=== PATIENT | female | born 1950 | race Two or more races ===

== ENCOUNTER 2019-08-02 18:16 | Emergency (ER) | payer OTHER, MEDICAID ==
[~2019-08-02] VITALS: Ht 152.4 cm; Wt 108.9 kg
[2019-08-02 19:15] LABS: Basophils # (auto) 0 uL; Basophils % (auto) 0.2 % (0.0-2.0); Eosinophils # (auto) 0 uL; Hematocrit 44.7 % (36.0-46.0); Hemoglobin 14.3 g/dL (12.2-16.2); Lymphocytes # (auto) 1.5 uL; Mean Corpuscular Hemoglobin 32.3 pg (28.0-32.0); Monocytes # (auto) 0.4 uL; Monocytes % (auto) 6.4 % (0.0-12.0); Neutrophils # (auto) 4.5 uL; Neutrophils % (auto) 70.4 % (37.0-80.0); Nucleated Red Blood Cells % 0.1 %; Platelet Count (auto) 155 10^3/uL (140-450); Red Blood Cells 4.42 10^6/uL (4.0-5.20); White Blood Cell 6.4 10^3/uL (4.4-10.8)
[2019-08-02 19:44] LABS: Albumin 3.9 g/dL (3.4-5.0); Anion Gap 6 (5-15); Blood Urea Nitrogen 13 mg/dL (7-18); Calcium 9.2 mg/dL (8.5-10.1); Carbon Dioxide 23 mmol/L (21-32); Chloride 109 mmol/L (98-107); Glucose 79 mg/dL (74-106); Potassium 4.4 mmol/L (3.5-5.1); Sodium 138 mmol/L (136-145)
[2019-08-02 19:48] LABS: Alanine Aminotransferase 18 U/L (13-56); Alkaline Phosphatase 122 U/L (45-117); Aspartate Aminotransferase 19 U/L (15-37); BUN/Creatinine Ratio 11.6; Bilirubin, Total 0.4 mg/dL (0.2-1.0); GFR African American 62 mL/min; GFR Non-African American 51 mL/min; Total Protein 8.1 g/dL (6.4-8.2)
[2019-08-02 20:41] LABS: INR 0.98 (0.9-1.15); Partial Thromboplastin Time 28.7 sec (23.64-32.05)
[2019-08-02 21:08] VITALS: BP 113/69
== END 2019-08-02 22:11 | disposition home or self-care (01) ==
LOC: EDBD 18:16 → ER 18:16
DX: S16.1XXA Strain of muscle, fascia and tendon at neck level, initial encounter (principal); S00.03XA Contusion of scalp, initial encounter; S80.01XA Contusion of right knee, initial encounter; I10 Essential (primary) hypertension; E07.9 Disorder of thyroid, unspecified; W18.39XA Other fall on same level, initial encounter; Y93.89 Activity, other specified; Y99.8 Other external cause status; Y92.89 Other specified places as the place of occurrence of the external cause
CPT/HCPCS: 36415; 70450; 71045; 72125; 73562; 80053; 84484; 85025; 85610; 85730; 93005

== ENCOUNTER 2021-09-07 19:59 | Inpatient (IN) | payer OTHER, MEDICAID ==
[~2021-09-07] VITALS: Ht 162.6 cm; Wt 122.8 kg
[2021-09-07] MEDS ORDERED: DexAMETHasone SOD PHOS 10MG/1ML VIAL INJ IV ONE (20:30)
[2021-09-07 21:19] LABS: Basophils # (auto) 0 10 ^3/uL (0-0.2); Basophils % (auto) 0.2 % (0.0-2.0); Eosinophils # (auto) 0 10 ^3/uL (0-0.8); Hematocrit 41.1 % (36.0-46.0); Hemoglobin 13.4 g/dL (12.2-16.2); Lymphocytes # (auto) 0.6 10 ^3/uL (0.4-5.4); Lymphocytes % (auto) 12.9 % (10.0-50.0); Mean Corpuscular Hemoglobin 31.5 pg (28.0-32.0); Mean Corpuscular Hgb Conc. 32.7 g/dL (32.0-36.0); Mean Corpuscular Volume 96.3 fL (80.0-100.0); Monocytes # (auto) 0.5 10 ^3/uL (0-1.3); Monocytes % (auto) 9.4 % (0.0-12.0); Neutrophils # (auto) 3.8 10 ^3/uL (1.6-8.6); Neutrophils % (auto) 77.5 % (37.0-80.0); Nucleated Red Blood Cells % 0.1 %; Red Blood Cells 4.27 10^6/uL (4.0-5.20); Red Cell Distribution Width 14.5 % (11.8-14.3); White Blood Cell 4.9 10^3/uL (4.4-10.8)
[2021-09-07 21:39] LABS: Potassium 3.5 mmol/L (3.5-5.1)
[2021-09-07 21:51] LABS: BUN/Creatinine Ratio 15.8; Bilirubin, Total 0.4 mg/dL (0.2-1.0); Calcium 7.8 mg/dL (8.5-10.1); Magnesium 2.9 mg/dL (1.6-2.6); Total Protein 7.1 g/dL (6.4-8.2)
[2021-09-07 21:54] LABS: INR 1.08 (0.9-1.15); Partial Thromboplastin Time 26.9 sec (23.6-33.0)
[2021-09-07] MEDS ORDERED: MORPHINE SULFATE INJECTION 2 MG/ML SYRG IV PRN (23:30)
[2021-09-07] MEDS ORDERED: cefTRIAXone 1GM/50ML D5W 50 ML IV ONE (23:30)
[2021-09-07] MEDS ORDERED: TEMAZEPAM 15 MG CAP PO PRN (23:30)
[2021-09-07] MEDS ORDERED: NITROGLYCERIN 0.4 MG SL TAB SL PRN (23:30)
[2021-09-07] MEDS ORDERED: ACETAMINOPHEN 500 MG TAB PO PRN (23:30)
[2021-09-07] MEDS: AZITHROMYCIN 500MG/ 250ML 250 ML IV SCH (23:48)
[2021-09-08 00:38] LABS: Urine Bacteria FEW /hpf (None Seen); Urine Blood TRACE /uL (Negative); Urine Mucus FEW (None Seen); Urine Specific Gravity 1.049 (1.001-1.035); Urine WBC 11 /hpf (0 - 5)
[2021-09-08 02:00] VITALS: BP 130/70
[2021-09-08] MEDS ORDERED: GABA300C10 PO (03:24)
[2021-09-08] MEDS ORDERED: TOPI100T68 PO (03:26)
[2021-09-08] MEDS ORDERED: VENL75CA3 PO (03:26)
[2021-09-08] MEDS ORDERED: LORA-35 PO (03:30)
[2021-09-08] MEDS ORDERED: PROP40TA59 PO (03:32)
[2021-09-08] MEDS ORDERED: SIMV-8 PO (03:33)
[2021-09-08] MEDS ORDERED: HYDR200T36 PO (03:33)
[2021-09-08] MEDS ORDERED: LEVO175T66 PO (03:34)
[2021-09-08 05:00] VITALS: BP 122/55
[2021-09-08] MEDS: LEVOTHYROXINE SODIUM 50 MCG TAB PO SCH (06:41)
[2021-09-08 09:00] VITALS: BP 101/61
[2021-09-08 09:43] LABS: Basophils # (auto) 0 10 ^3/uL (0-0.2); Basophils % (auto) 0.2 % (0.0-2.0); Eosinophils # (auto) 0 10 ^3/uL (0-0.8); Hematocrit 39.8 % (36.0-46.0); Hemoglobin 13.2 g/dL (12.2-16.2); Lymphocytes # (auto) 0.5 10 ^3/uL (0.4-5.4); Lymphocytes % (auto) 17.1 % (10.0-50.0); Mean Corpuscular Hemoglobin 32.2 pg (28.0-32.0); Mean Corpuscular Hgb Conc. 33.1 g/dL (32.0-36.0); Mean Corpuscular Volume 97.4 fL (80.0-100.0); Monocytes # (auto) 0.2 10 ^3/uL (0-1.3); Monocytes % (auto) 6.3 % (0.0-12.0); Neutrophils # (auto) 2.3 10 ^3/uL (1.6-8.6); Neutrophils % (auto) 76.4 % (37.0-80.0); Nucleated Red Blood Cells % 0.1 %; Red Blood Cells 4.08 10^6/uL (4.0-5.20); Red Cell Distribution Width 14.6 % (11.8-14.3)
[2021-09-08 09:52] LABS: Calcium 7.7 mg/dL (8.5-10.1); Potassium 3.9 mmol/L (3.5-5.1)
[2021-09-08 09:57] LABS: BUN/Creatinine Ratio 20.5; Bilirubin, Total 0.3 mg/dL (0.2-1.0); Total Protein 6.5 g/dL (6.4-8.2)
[2021-09-08] MEDS ORDERED: DexAMETHasone SOD PHOS 10MG/1ML VIAL INJ IV SCH (10:00)
[2021-09-08] MEDS ORDERED: PANTOPRAZOLE 40 MG TAB PO SCH (10:00)
[2021-09-08] MEDS: VENLAFAXINE HCL 37.5MG TABLET PO SCH (10:31)
[2021-09-08] MEDS: AZITHROMYCIN 500MG/ 250ML 250 ML IV SCH (10:31)
[2021-09-08] MEDS: ZINC SULFATE 220mg CAP or TAB PO SCH (10:31)
[2021-09-08] MEDS: CHOLECALCIFEROL (VITD3) 2,000 UNIT CAP/TAB PO SCH (10:32)
[2021-09-08] MEDS: ASCORBIC ACID 1,000 MG TAB PO SCH (10:32)
[2021-09-08] MEDS: ENOXAPARIN SOD 40 MG/0.4 ML SYRINGE SC SCH ×2 (10:32→22:00)
[2021-09-08] MEDS ORDERED: FAMOTIDINE (10MG/ML) 2ML VL IV ONE (10:45)
[2021-09-08] MEDS: CALCIUM W/VIT D (600MG/400IU) TAB PO SCH ×2 (11:44→17:56)
[2021-09-08 13:00] VITALS: BP 116/63
[2021-09-08] MEDS ORDERED: IPRATROPIUM BROM 0.5 MG/2.5ML INH SOL NEB SCH (14:00)
[2021-09-08 17:00] VITALS: BP 103/58
[2021-09-08] MEDS: FUROSEMIDE 20 MG/2 ML VIAL IV SCH (17:57)
[2021-09-08] MEDS: POTASSIUM CHL 20 Meq TABLET PO SCH (21:59)
[2021-09-08] MEDS: FAMOTIDINE (10MG/ML) 2ML VL IV SCH (21:59)
[2021-09-08] MEDS: ATORVASTATIN 20 MG TAB PO SCH (21:59)
[2021-09-08 22:00] VITALS: BP 120/61
[2021-09-09] MEDS: ALBUTEROL SULF HFA 90MCG INH 200DOSE IN PRN ×3 (00:21→06:25)
[2021-09-09] MEDS: ONDANSETRON HCL 4 MG/2 ML VIAL IV PRN (01:03)
[2021-09-09 05:00] VITALS: BP 131/80
[2021-09-09] MEDS: LEVOTHYROXINE SODIUM 50 MCG TAB PO SCH (05:56)
[2021-09-09] MEDS: FUROSEMIDE 20 MG/2 ML VIAL IV SCH (05:56)
[2021-09-09 08:47] VITALS: BP 102/60
[2021-09-09 09:20] LABS: INR 1.04 (0.9-1.15); Partial Thromboplastin Time 31.6 sec (23.6-33.0)
[2021-09-09 09:28] LABS: Basophils # (auto) 0 10 ^3/uL (0-0.2); Basophils % (auto) 0.2 % (0.0-2.0); Eosinophils # (auto) 0 10 ^3/uL (0-0.8); Eosinophils % (auto) 0.1 % (0.0-7.0); Hematocrit 42.7 % (36.0-46.0); Hemoglobin 14.3 g/dL (12.2-16.2); Lymphocytes # (auto) 0.8 10 ^3/uL (0.4-5.4); Lymphocytes % (auto) 10.7 % (10.0-50.0); Mean Corpuscular Hemoglobin 31.9 pg (28.0-32.0); Mean Corpuscular Hgb Conc. 33.6 g/dL (32.0-36.0); Mean Corpuscular Volume 95.1 fL (80.0-100.0); Monocytes # (auto) 0.4 10 ^3/uL (0-1.3); Monocytes % (auto) 4.9 % (0.0-12.0); Neutrophils # (auto) 6.3 10 ^3/uL (1.6-8.6); Neutrophils % (auto) 84.1 % (37.0-80.0); Nucleated Red Blood Cells % 0.3 %; Red Blood Cells 4.49 10^6/uL (4.0-5.20); Red Cell Distribution Width 14.3 % (11.8-14.3); White Blood Cell 7.4 10^3/uL (4.4-10.8)
[2021-09-09 09:30] LABS: Potassium 3.2 mmol/L (3.5-5.1)
[2021-09-09] MEDS ORDERED: ALBUTEROL SULF 2.5 MG/0.5ML(0.5%) NEB SOLN NEB ONE (09:30)
[2021-09-09] MEDS ORDERED: ENOXAPARIN SOD 120 MG/0.8 ML SYRINGE SC ONE (09:30)
[2021-09-09] MEDS ORDERED: methylPREDNISolone SOD SUCC 125 MG/2 ML VL IV ONE (09:30)
[2021-09-09] MEDS ORDERED: MEROPENEM 2 GM in SODIUM CHL 0.9% 250 ML IV ONE (09:30)
[2021-09-09] MEDS ORDERED: IPRATROPIUM BROM 0.5 MG/2.5ML INH SOL NEB ONE (09:30)
[2021-09-09] MEDS ORDERED: VANCOMYCIN PER PHARMACY 0 MG IV SCH (09:30)
[2021-09-09] MEDS ORDERED: BUDESONIDE (INHALATION) 0.5 MG/2 ML NEB NEB ONE (09:30)
[2021-09-09 09:44] LABS: Albumin 3.2 g/dL (3.4-5.0); BUN/Creatinine Ratio 19.3; Bilirubin, Total 0.4 mg/dL (0.2-1.0); Calcium 8.2 mg/dL (8.5-10.1); Magnesium 2.9 mg/dL (1.6-2.6); Total Protein 6.8 g/dL (6.4-8.2)
[2021-09-09] MEDS ORDERED: LEVOTHYROXINE SODIUM 100 MCG/5 ML INJ IV ONE (09:45)
[2021-09-09] MEDS ORDERED: FAMOTIDINE (10MG/ML) 2ML VL IV ONE (09:45)
[2021-09-09] MEDS ORDERED: IOHEXOL 350 MG/ML 100ML IJ ONE (09:50)
[2021-09-09] MEDS: FAMOTIDINE (10MG/ML) 2ML VL IV SCH ×2 (10:00→21:52)
[2021-09-09] MEDS ORDERED: IPRATROPIUM BROM 0.5 MG/2.5ML INH SOL NEB SCH (10:00)
[2021-09-09] MEDS ORDERED: ALBUMIN 25% 100 ML IV ONE (10:00)
[2021-09-09] MEDS ORDERED: VANCOMYCIN 1GM/250ML 250 ML IV ONE (10:00)
[2021-09-09] MEDS ORDERED: FAMOTIDINE (10MG/ML) 2ML VL IV SCH (10:00)
[2021-09-09] MEDS: VENLAFAXINE HCL 37.5MG TABLET PO SCH (10:25)
[2021-09-09] MEDS: ZINC SULFATE 220mg CAP or TAB PO SCH (10:25)
[2021-09-09] MEDS: CALCIUM W/VIT D (600MG/400IU) TAB PO SCH (10:25)
[2021-09-09] MEDS: ASCORBIC ACID 1,000 MG TAB PO SCH (10:25)
[2021-09-09] MEDS: POTASSIUM CHL 20 Meq TABLET PO SCH (10:25)
[2021-09-09] MEDS: CHOLECALCIFEROL (VITD3) 2,000 UNIT CAP/TAB PO SCH (10:26)
[2021-09-09] MEDS: ALBUTEROL SULF 2.5 MG/0.5ML(0.5%) NEB SOLN NEB SCH ×3 (10:35→19:47)
[2021-09-09] MEDS: BUDESONIDE (INHALATION) 0.5 MG/2 ML NEB NEB SCH ×2 (10:35→19:47)
[2021-09-09] MEDS ORDERED: REMDESIVIR PER PHARMACY 0 ML IV SCH (11:30)
[2021-09-09 12:46] VITALS: BP 129/74
[2021-09-09] MEDS ORDERED: MEROPENEM 1GM IVPB 100 ML IV SCH (14:00)
[2021-09-09] MEDS ORDERED: methylPREDNISolone SOD SUCC 40 MG/ML VL IV SCH (14:00)
[2021-09-09] MEDS ORDERED: REMDESIVIR 200 MG in NS 210ml LOADING DOSE ADULT IV ONE (15:00)
[2021-09-09 16:50] VITALS: BP 118/71
[2021-09-09] MEDS ORDERED: VANCOMYCIN 1GM/250ML 250 ML IV SCH (18:00)
[2021-09-09 20:00] VITALS: BP 119/70
[2021-09-09 20:59] VITALS: BP 119/70
[2021-09-09] MEDS: ATORVASTATIN 20 MG TAB PO SCH (21:52)
[2021-09-09] MEDS ORDERED: ENOXAPARIN SOD 120 MG/0.8 ML SYRINGE SC SCH (22:00)
[2021-09-10 05:00] VITALS: BP 106/59
[2021-09-10 05:27] VITALS: BP 111/72
[2021-09-10] MEDS: LEVOTHYROXINE SODIUM 100 MCG TAB PO SCH (06:21)
[2021-09-10] MEDS ORDERED: LEVOTHYROXINE SODIUM 100 MCG TAB PO SCH (07:00)
[2021-09-10] MEDS ORDERED: LEVOTHYROXINE SODIUM 50 MCG TAB PO SCH (07:00)
[2021-09-10 07:17] LABS: Potassium 3.6 mmol/L (3.5-5.1)
[2021-09-10 07:24] LABS: Albumin 3.2 g/dL (3.4-5.0); BUN/Creatinine Ratio 23.5; Bilirubin, Total 0.3 mg/dL (0.2-1.0); Calcium 8.5 mg/dL (8.5-10.1); Total Protein 6.7 g/dL (6.4-8.2)
[2021-09-10] MEDS: ALBUTEROL SULF HFA 90MCG INH 200DOSE IN PRN ×2 (08:34→19:12)
[2021-09-10 09:00] VITALS: BP 111/80
[2021-09-10] MEDS: cefTRIAXone 1GM/50ML D5W 50 ML IV SCH (09:16)
[2021-09-10] MEDS: DexAMETHasone SOD PHOS 10MG/1ML VIAL INJ IV SCH (09:17)
[2021-09-10] MEDS: FAMOTIDINE (10MG/ML) 2ML VL IV SCH (09:18)
[2021-09-10] MEDS: ZINC SULFATE 220mg CAP or TAB PO SCH (09:18)
[2021-09-10] MEDS: VENLAFAXINE HCL 37.5MG TABLET PO SCH (09:19)
[2021-09-10] MEDS: ASCORBIC ACID 1,000 MG TAB PO SCH (09:20)
[2021-09-10] MEDS: CALCIUM W/VIT D (600MG/400IU) TAB PO SCH (09:20)
[2021-09-10] MEDS: AZITHROMYCIN 250 MG TAB PO SCH (09:21)
[2021-09-10] MEDS: CHOLECALCIFEROL (VITD3) 2,000 UNIT CAP/TAB PO SCH (09:21)
[2021-09-10] MEDS: ACETAMINOPHEN 325 MG TAB PO PRN (09:22)
[2021-09-10] MEDS ORDERED: BUDESONIDE (INHALATION) 180 MCG IH IN SCH (10:00)
[2021-09-10] MEDS: BUDESONIDE (INHALATION) 180 MCG IH IN SCH ×2 (10:54→19:12)
[2021-09-10 13:00] VITALS: BP 117/65
[2021-09-10] MEDS: REMDESIVIR 100mg 100 MG in SODIUM CHL 0.9% 230 ML IV SCH (16:14)
[2021-09-10 17:00] VITALS: BP 109/66
[2021-09-10] MEDS: ATORVASTATIN 20 MG TAB PO SCH (20:36)
[2021-09-10 21:10] VITALS: BP 112/67
[2021-09-11 04:50] VITALS: BP 112/67
[2021-09-11 05:00] VITALS: BP 123/67
[2021-09-11] MEDS: LEVOTHYROXINE SODIUM 100 MCG TAB PO SCH (06:32)
[2021-09-11 07:38] LABS: Basophils # (auto) 0 10 ^3/uL (0-0.2); Basophils % (auto) 0.1 % (0.0-2.0); Eosinophils # (auto) 0 10 ^3/uL (0-0.8); Eosinophils % (auto) 0.1 % (0.0-7.0); Hemoglobin 13.7 g/dL (12.2-16.2); Lymphocytes # (auto) 0.8 10 ^3/uL (0.4-5.4); Lymphocytes % (auto) 18.3 % (10.0-50.0); Mean Corpuscular Hemoglobin 32.5 pg (28.0-32.0); Mean Corpuscular Hgb Conc. 34.4 g/dL (32.0-36.0); Mean Corpuscular Volume 94.6 fL (80.0-100.0); Monocytes # (auto) 0.3 10 ^3/uL (0-1.3); Monocytes % (auto) 7.7 % (0.0-12.0); Neutrophils # (auto) 3.1 10 ^3/uL (1.6-8.6); Neutrophils % (auto) 73.8 % (37.0-80.0); Nucleated Red Blood Cells % 0.3 %; Red Blood Cells 4.22 10^6/uL (4.0-5.20); Red Cell Distribution Width 14.6 % (11.8-14.3); White Blood Cell 4.2 10^3/uL (4.4-10.8)
[2021-09-11 07:50] LABS: Potassium 3.2 mmol/L (3.5-5.1)
[2021-09-11 08:01] LABS: BUN/Creatinine Ratio 31.5; Bilirubin, Total 0.3 mg/dL (0.2-1.0); Calcium 8.2 mg/dL (8.5-10.1); Total Protein 6.4 g/dL (6.4-8.2)
[2021-09-11 09:00] VITALS: BP 114/87
[2021-09-11] MEDS: DexAMETHasone SOD PHOS 10MG/1ML VIAL INJ IV SCH (09:24)
[2021-09-11] MEDS: cefTRIAXone 1GM/50ML D5W 50 ML IV SCH (09:24)
[2021-09-11] MEDS: ZINC SULFATE 220mg CAP or TAB PO SCH (09:25)
[2021-09-11] MEDS: VENLAFAXINE HCL 37.5MG TABLET PO SCH (09:26)
[2021-09-11] MEDS: CALCIUM W/VIT D (600MG/400IU) TAB PO SCH (09:27)
[2021-09-11] MEDS: FAMOTIDINE 20 MG TAB PO SCH (09:28)
[2021-09-11] MEDS: CHOLECALCIFEROL (VITD3) 2,000 UNIT CAP/TAB PO SCH (09:28)
[2021-09-11] MEDS: ASCORBIC ACID 1,000 MG TAB PO SCH (09:28)
[2021-09-11] MEDS: AZITHROMYCIN 250 MG TAB PO SCH (09:29)
[2021-09-11] MEDS: BUDESONIDE (INHALATION) 180 MCG IH IN SCH ×2 (10:00→21:42)
[2021-09-11 12:37] VITALS: BP 139/70
[2021-09-11] MEDS: REMDESIVIR 100mg 100 MG in SODIUM CHL 0.9% 230 ML IV SCH (15:45)
[2021-09-11] MEDS: ALBUTEROL SULF HFA 90MCG INH 200DOSE IN PRN ×2 (16:49→23:37)
[2021-09-11 16:52] VITALS: BP 115/67
[2021-09-11 22:00] VITALS: BP 114/69
[2021-09-11] MEDS: ATORVASTATIN 20 MG TAB PO SCH (22:54)
[2021-09-12] MEDS: LEVOTHYROXINE SODIUM 100 MCG TAB PO SCH (06:52)
[2021-09-12 08:06] LABS: Basophils # (auto) 0 10 ^3/uL (0-0.2); Basophils % (auto) 0.1 % (0.0-2.0); Eosinophils # (auto) 0 10 ^3/uL (0-0.8); Hematocrit 41.9 % (36.0-46.0); Hemoglobin 14.3 g/dL (12.2-16.2); Lymphocytes # (auto) 1.1 10 ^3/uL (0.4-5.4); Mean Corpuscular Hemoglobin 32.4 pg (28.0-32.0); Mean Corpuscular Hgb Conc. 34.2 g/dL (32.0-36.0); Mean Corpuscular Volume 94.7 fL (80.0-100.0); Monocytes # (auto) 0.4 10 ^3/uL (0-1.3); Monocytes % (auto) 8.6 % (0.0-12.0); Neutrophils # (auto) 2.9 10 ^3/uL (1.6-8.6); Neutrophils % (auto) 66.3 % (37.0-80.0); Nucleated Red Blood Cells % 0.2 %; Red Blood Cells 4.42 10^6/uL (4.0-5.20); Red Cell Distribution Width 14.8 % (11.8-14.3); White Blood Cell 4.4 10^3/uL (4.4-10.8)
[2021-09-12 08:21] LABS: Potassium 3.9 mmol/L (3.5-5.1)
[2021-09-12 08:28] LABS: Albumin 2.9 g/dL (3.4-5.0); BUN/Creatinine Ratio 35.4; Bilirubin, Total 0.3 mg/dL (0.2-1.0); Calcium 8.4 mg/dL (8.5-10.1); Total Protein 6.4 g/dL (6.4-8.2)
[2021-09-12 09:00] VITALS: BP 126/73
[2021-09-12] MEDS: ALBUTEROL SULF HFA 90MCG INH 200DOSE IN PRN ×2 (09:22→18:51)
[2021-09-12] MEDS: BUDESONIDE (INHALATION) 180 MCG IH IN SCH ×2 (09:22→18:51)
[2021-09-12] MEDS: CALCIUM W/VIT D (600MG/400IU) TAB PO SCH (10:36)
[2021-09-12] MEDS: cefTRIAXone 1GM/50ML D5W 50 ML IV SCH (10:36)
[2021-09-12] MEDS: DexAMETHasone SOD PHOS 10MG/1ML VIAL INJ IV SCH (10:36)
[2021-09-12] MEDS: VENLAFAXINE HCL 37.5MG TABLET PO SCH (10:36)
[2021-09-12] MEDS: ZINC SULFATE 220mg CAP or TAB PO SCH (10:36)
[2021-09-12] MEDS: AZITHROMYCIN 250 MG TAB PO SCH (10:37)
[2021-09-12] MEDS: FAMOTIDINE 20 MG TAB PO SCH (10:37)
[2021-09-12] MEDS: ASCORBIC ACID 1,000 MG TAB PO SCH (10:37)
[2021-09-12] MEDS: CHOLECALCIFEROL (VITD3) 2,000 UNIT CAP/TAB PO SCH (10:37)
[2021-09-12] MEDS ORDERED: POTASSIUM CHL 20 Meq TABLET PO ONE (11:00)
[2021-09-12] MEDS ORDERED: FUROSEMIDE 20 MG/2 ML VIAL IV ONE ×2 (11:00→18:45)
[2021-09-12 12:30] VITALS: BP 147/82
[2021-09-12 17:00] VITALS: BP 107/71
[2021-09-12] MEDS: REMDESIVIR 100mg 100 MG in SODIUM CHL 0.9% 230 ML IV SCH (18:58)
[2021-09-12] MEDS: ATORVASTATIN 20 MG TAB PO SCH (20:59)
[2021-09-12 22:18] VITALS: BP 116/69
[2021-09-13 05:11] VITALS: BP 124/75
[2021-09-13] MEDS: ALBUTEROL SULF HFA 90MCG INH 200DOSE IN PRN ×2 (05:53→22:57)
[2021-09-13] MEDS: BUDESONIDE (INHALATION) 180 MCG IH IN SCH ×2 (05:54→22:00)
[2021-09-13] MEDS: LEVOTHYROXINE SODIUM 100 MCG TAB PO SCH (06:25)
[2021-09-13 07:26] LABS: Albumin 2.9 g/dL (3.4-5.0); Calcium 8.4 mg/dL (8.5-10.1)
[2021-09-13 07:30] LABS: BUN/Creatinine Ratio 41.4; Bilirubin, Total 0.4 mg/dL (0.2-1.0); Total Protein 6.4 g/dL (6.4-8.2)
[2021-09-13 09:00] VITALS: BP 118/60
[2021-09-13] MEDS: cefTRIAXone 1GM/50ML D5W 50 ML IV SCH (10:06)
[2021-09-13] MEDS: CALCIUM W/VIT D (600MG/400IU) TAB PO SCH (10:07)
[2021-09-13] MEDS: ZINC SULFATE 220mg CAP or TAB PO SCH (10:07)
[2021-09-13] MEDS: DexAMETHasone SOD PHOS 10MG/1ML VIAL INJ IV SCH (10:07)
[2021-09-13] MEDS: ASCORBIC ACID 1,000 MG TAB PO SCH (10:07)
[2021-09-13] MEDS: FAMOTIDINE 20 MG TAB PO SCH (10:07)
[2021-09-13] MEDS: VENLAFAXINE HCL 37.5MG TABLET PO SCH (10:07)
[2021-09-13] MEDS: CHOLECALCIFEROL (VITD3) 2,000 UNIT CAP/TAB PO SCH (10:07)
[2021-09-13] MEDS: AZITHROMYCIN 250 MG TAB PO SCH (10:08)
[2021-09-13] MEDS ORDERED: POTASSIUM CHL 20 Meq TABLET PO ONE (11:45)
[2021-09-13] MEDS ORDERED: FUROSEMIDE 20 MG/2 ML VIAL IV ONE (11:45)
[2021-09-13 13:13] VITALS: BP 114/58
[2021-09-13 17:27] VITALS: BP 117/81
[2021-09-13] MEDS: REMDESIVIR 100mg 100 MG in SODIUM CHL 0.9% 230 ML IV SCH (18:08)
[2021-09-13 22:00] VITALS: BP 104/74
[2021-09-13] MEDS: ATORVASTATIN 20 MG TAB PO SCH (22:36)
[2021-09-14 05:00] VITALS: BP 158/61
[2021-09-14] MEDS: LEVOTHYROXINE SODIUM 100 MCG TAB PO SCH (05:58)
[2021-09-14 07:02] LABS: Hematocrit 48.1 % (36.0-46.0); Hemoglobin 15.8 g/dL (12.2-16.2); Mean Corpuscular Hemoglobin 31.1 pg (28.0-32.0); Mean Corpuscular Volume 94.3 fL (80.0-100.0); Red Cell Distribution Width 14.3 % (11.8-14.3); White Blood Cell 10.1 10^3/uL (4.4-10.8)
[2021-09-14 07:07] LABS: Band Neutrophils % (manual) 0; Basophils % (manual) 0 (0.0-2.0); Blast Cells 0; Eosinophils % (manual) 0 (0-7); Metamyelocytes % 0; Myelocytes % 0; Promyelocytes % 0; Reactive Lymphocytes 0
[2021-09-14 07:11] LABS: Calcium 8.4 mg/dL (8.5-10.1)
[2021-09-14 07:13] LABS: BUN/Creatinine Ratio 45.5
[2021-09-14] MEDS: ALBUTEROL SULF HFA 90MCG INH 200DOSE IN PRN (07:45)
[2021-09-14] MEDS: BUDESONIDE (INHALATION) 180 MCG IH IN SCH ×2 (07:45→21:15)
[2021-09-14] MEDS: cefTRIAXone 1GM/50ML D5W 50 ML IV SCH (08:46)
[2021-09-14 09:00] VITALS: BP 118/63
[2021-09-14 10:00] LABS: Lymphocytes % (manual) 12 (10.0-50.0); Monocytes % (manual) 12 (0-12)
[2021-09-14] MEDS ORDERED: POTASSIUM CHL 20 Meq TABLET PO SCH (10:00)
[2021-09-14] MEDS: DexAMETHasone SOD PHOS 10MG/1ML VIAL INJ IV SCH (10:01)
[2021-09-14] MEDS: FUROSEMIDE 20 MG/2 ML VIAL IV SCH (10:02)
[2021-09-14] MEDS: ZINC SULFATE 220mg CAP or TAB PO SCH (10:03)
[2021-09-14] MEDS: VENLAFAXINE HCL 37.5MG TABLET PO SCH (10:03)
[2021-09-14] MEDS: CALCIUM W/VIT D (600MG/400IU) TAB PO SCH (10:04)
[2021-09-14] MEDS: FAMOTIDINE 20 MG TAB PO SCH (10:04)
[2021-09-14] MEDS: CHOLECALCIFEROL (VITD3) 2,000 UNIT CAP/TAB PO SCH (10:05)
[2021-09-14] MEDS: AZITHROMYCIN 250 MG TAB PO SCH (10:05)
[2021-09-14] MEDS: ASCORBIC ACID 1,000 MG TAB PO SCH (10:05)
[2021-09-14 13:00] VITALS: BP 128/77
[2021-09-14 14:45] VITALS: BP 133/54
[2021-09-14] MEDS: REMDESIVIR 100mg 100 MG in SODIUM CHL 0.9% 230 ML IV SCH (14:48)
[2021-09-14 16:50] VITALS: BP 113/71
[2021-09-14 21:16] VITALS: BP 142/71
[2021-09-14] MEDS: DexAMETHasone SOD PHOS 4 MG/1ML SDV INJ IV SCH (21:19)
[2021-09-14] MEDS: ATORVASTATIN 20 MG TAB PO SCH (21:20)
[2021-09-15] MEDS: ALBUTEROL SULF HFA 90MCG INH 200DOSE IN PRN ×2 (01:29→09:41)
[2021-09-15 02:48] VITALS: BP 142/71
[2021-09-15 05:00] VITALS: BP 121/86
[2021-09-15] MEDS: LEVOTHYROXINE SODIUM 100 MCG TAB PO SCH (05:57)
[2021-09-15 07:36] LABS: Basophils # (auto) 0 10 ^3/uL (0-0.2); Basophils % (auto) 0.1 % (0.0-2.0); Eosinophils # (auto) 0 10 ^3/uL (0-0.8); Hematocrit 49.4 % (36.0-46.0); Hemoglobin 16.6 g/dL (12.2-16.2); Lymphocytes # (auto) 0.7 10 ^3/uL (0.4-5.4); Lymphocytes % (auto) 9.1 % (10.0-50.0); Mean Corpuscular Hemoglobin 31.8 pg (28.0-32.0); Mean Corpuscular Hgb Conc. 33.6 g/dL (32.0-36.0); Mean Corpuscular Volume 94.6 fL (80.0-100.0); Monocytes # (auto) 0.6 10 ^3/uL (0-1.3); Neutrophils # (auto) 6.6 10 ^3/uL (1.6-8.6); Neutrophils % (auto) 82.8 % (37.0-80.0); Nucleated Red Blood Cells % 0.2 %; Red Blood Cells 5.22 10^6/uL (4.0-5.20); Red Cell Distribution Width 14.8 % (11.8-14.3); White Blood Cell 7.9 10^3/uL (4.4-10.8)
[2021-09-15 07:57] LABS: BUN/Creatinine Ratio 32.5; Calcium 9.1 mg/dL (8.5-10.1); Potassium 4.1 mmol/L (3.5-5.1)
[2021-09-15 09:00] VITALS: BP 153/84
[2021-09-15] MEDS: BUDESONIDE (INHALATION) 180 MCG IH IN SCH ×2 (09:42→23:15)
[2021-09-15] MEDS: CALCIUM W/VIT D (600MG/400IU) TAB PO SCH (10:43)
[2021-09-15] MEDS: DexAMETHasone SOD PHOS 4 MG/1ML SDV INJ IV SCH ×2 (10:43→21:39)
[2021-09-15] MEDS: VENLAFAXINE HCL 37.5MG TABLET PO SCH (10:43)
[2021-09-15] MEDS: ZINC SULFATE 220mg CAP or TAB PO SCH (10:43)
[2021-09-15] MEDS: FUROSEMIDE 20 MG/2 ML VIAL IV SCH (10:43)
[2021-09-15] MEDS: cefTRIAXone 1GM/50ML D5W 50 ML IV SCH (10:43)
[2021-09-15] MEDS: ASCORBIC ACID 1,000 MG TAB PO SCH (10:44)
[2021-09-15] MEDS: FAMOTIDINE 20 MG TAB PO SCH (10:44)
[2021-09-15] MEDS: AZITHROMYCIN 250 MG TAB PO SCH (10:44)
[2021-09-15] MEDS: CHOLECALCIFEROL (VITD3) 2,000 UNIT CAP/TAB PO SCH (10:44)
[2021-09-15] MEDS ORDERED: POTASSIUM CHL 20 Meq TABLET PO ONE (11:15)
[2021-09-15] MEDS ORDERED: FUROSEMIDE 20 MG/2 ML VIAL IV ONE (11:15)
[2021-09-15 12:12] LABS: Potassium 4.9 mmol/L (3.5-5.1)
[2021-09-15 12:28] LABS: Albumin 3.1 g/dL (3.4-5.0); BUN/Creatinine Ratio 32.1; Bilirubin, Total 0.7 mg/dL (0.2-1.0); Total Protein 7.5 g/dL (6.4-8.2)
[2021-09-15 13:20] VITALS: BP 109/81
[2021-09-15] MEDS: REMDESIVIR 100mg 100 MG in SODIUM CHL 0.9% 230 ML IV SCH (17:04)
[2021-09-15 17:09] VITALS: BP 112/71
[2021-09-15] MEDS: ATORVASTATIN 20 MG TAB PO SCH (21:39)
[2021-09-15 22:21] VITALS: BP 132/71
[2021-09-16] MEDS: ALBUTEROL SULF HFA 90MCG INH 200DOSE IN PRN ×3 (00:15→18:38)
[2021-09-16 05:30] VITALS: BP 139/71
[2021-09-16] MEDS: LEVOTHYROXINE SODIUM 100 MCG TAB PO SCH (05:55)
[2021-09-16] MEDS: BUDESONIDE (INHALATION) 180 MCG IH IN SCH ×2 (06:02→22:18)
[2021-09-16 07:13] LABS: Calcium 8.9 mg/dL (8.5-10.1); Potassium 4.3 mmol/L (3.5-5.1)
[2021-09-16 07:16] LABS: BUN/Creatinine Ratio 35.3
[2021-09-16 09:00] VITALS: BP 124/72
[2021-09-16] MEDS: DexAMETHasone SOD PHOS 4 MG/1ML SDV INJ IV SCH ×2 (09:20→22:09)
[2021-09-16] MEDS: cefTRIAXone 1GM/50ML D5W 50 ML IV SCH (09:20)
[2021-09-16] MEDS: VENLAFAXINE HCL 37.5MG TABLET PO SCH (09:21)
[2021-09-16] MEDS: AZITHROMYCIN 250 MG TAB PO SCH (09:21)
[2021-09-16] MEDS: FUROSEMIDE 40 MG/4 ML VIAL IV SCH (09:21)
[2021-09-16] MEDS: ASCORBIC ACID 1,000 MG TAB PO SCH (09:21)
[2021-09-16] MEDS: FAMOTIDINE 20 MG TAB PO SCH (09:22)
[2021-09-16] MEDS: CALCIUM W/VIT D (600MG/400IU) TAB PO SCH (09:22)
[2021-09-16] MEDS: ZINC SULFATE 220mg CAP or TAB PO SCH (09:22)
[2021-09-16] MEDS: CHOLECALCIFEROL (VITD3) 2,000 UNIT CAP/TAB PO SCH (09:22)
[2021-09-16] MEDS: POTASSIUM CHL 20 Meq TABLET PO SCH (09:22)
[2021-09-16] MEDS: ONDANSETRON HCL 4 MG/2 ML VIAL IV PRN (11:21)
[2021-09-16 12:52] VITALS: BP 107/77
[2021-09-16] MEDS ORDERED: FUROSEMIDE 20 MG/2 ML VIAL IV ONE (13:15)
[2021-09-16] MEDS: REMDESIVIR 100mg 100 MG in SODIUM CHL 0.9% 230 ML IV SCH (15:04)
[2021-09-16 16:59] VITALS: BP 106/78
[2021-09-16 22:00] VITALS: BP 124/76
[2021-09-16] MEDS: ATORVASTATIN 20 MG TAB PO SCH (22:09)
[2021-09-17] VITALS (8 sets, daily range): BP systolic 97–137; BP diastolic 71–78
[2021-09-17] MEDS: LEVOTHYROXINE SODIUM 100 MCG TAB PO SCH (06:06)
[2021-09-17] MEDS: ALBUTEROL SULF HFA 90MCG INH 200DOSE IN PRN ×2 (06:13→20:02)
[2021-09-17] MEDS: BUDESONIDE (INHALATION) 180 MCG IH IN SCH ×2 (06:13→19:15)
[2021-09-17] MEDS: cefTRIAXone 1GM/50ML D5W 50 ML IV SCH (09:14)
[2021-09-17] MEDS: CALCIUM W/VIT D (600MG/400IU) TAB PO SCH (09:14)
[2021-09-17] MEDS: FUROSEMIDE 40 MG/4 ML VIAL IV SCH (09:14)
[2021-09-17] MEDS: ZINC SULFATE 220mg CAP or TAB PO SCH (09:14)
[2021-09-17] MEDS: DexAMETHasone SOD PHOS 4 MG/1ML SDV INJ IV SCH ×2 (09:14→21:11)
[2021-09-17] MEDS: FAMOTIDINE 20 MG TAB PO SCH (09:15)
[2021-09-17] MEDS: VENLAFAXINE HCL 37.5MG TABLET PO SCH (09:15)
[2021-09-17] MEDS: ASCORBIC ACID 1,000 MG TAB PO SCH (09:15)
[2021-09-17] MEDS: CHOLECALCIFEROL (VITD3) 2,000 UNIT CAP/TAB PO SCH (09:15)
[2021-09-17] MEDS: POTASSIUM CHL 20 Meq TABLET PO SCH (09:15)
[2021-09-17] MEDS: AZITHROMYCIN 250 MG TAB PO SCH (09:16)
[2021-09-17 10:35] LABS: Albumin 3.1 g/dL (3.4-5.0); Calcium 8.7 mg/dL (8.5-10.1); Potassium 5.1 mmol/L (3.5-5.1)
[2021-09-17 10:39] LABS: BUN/Creatinine Ratio 35.7; Bilirubin, Total 1.1 mg/dL (0.2-1.0); Total Protein 7.2 g/dL (6.4-8.2)
[2021-09-17] MEDS: REMDESIVIR 100mg 100 MG in SODIUM CHL 0.9% 230 ML IV SCH (16:47)
[2021-09-17] MEDS: ATORVASTATIN 20 MG TAB PO SCH (21:11)
[2021-09-18] VITALS (11 sets, daily range): BP systolic 114–144; BP diastolic 73–83
[2021-09-18] MEDS: BUDESONIDE (INHALATION) 180 MCG IH IN SCH ×2 (06:01→18:19)
[2021-09-18] MEDS: ALBUTEROL SULF HFA 90MCG INH 200DOSE IN PRN ×2 (06:01→18:19)
[2021-09-18] MEDS: LEVOTHYROXINE SODIUM 100 MCG TAB PO SCH (06:22)
[2021-09-18 06:45] LABS: Potassium 5.2 mmol/L (3.5-5.1)
[2021-09-18 06:55] LABS: Albumin 2.9 g/dL (3.4-5.0); BUN/Creatinine Ratio 45.7; Bilirubin, Total 0.7 mg/dL (0.2-1.0); Calcium 8.5 mg/dL (8.5-10.1); Total Protein 6.8 g/dL (6.4-8.2)
[2021-09-18] MEDS: DexAMETHasone SOD PHOS 4 MG/1ML SDV INJ IV SCH ×2 (08:52→21:40)
[2021-09-18] MEDS: cefTRIAXone 1GM/50ML D5W 50 ML IV SCH (08:52)
[2021-09-18] MEDS: VENLAFAXINE HCL 37.5MG TABLET PO SCH (08:53)
[2021-09-18] MEDS: ZINC SULFATE 220mg CAP or TAB PO SCH (08:53)
[2021-09-18] MEDS: FAMOTIDINE 20 MG TAB PO SCH (08:54)
[2021-09-18] MEDS: POTASSIUM CHL 20 Meq TABLET PO SCH (08:54)
[2021-09-18] MEDS: CALCIUM W/VIT D (600MG/400IU) TAB PO SCH (08:54)
[2021-09-18] MEDS: ASCORBIC ACID 1,000 MG TAB PO SCH (08:54)
[2021-09-18] MEDS: CHOLECALCIFEROL (VITD3) 2,000 UNIT CAP/TAB PO SCH (08:55)
[2021-09-18] MEDS: AZITHROMYCIN 250 MG TAB PO SCH (08:55)
[2021-09-18] MEDS: FUROSEMIDE 40 MG/4 ML VIAL IV SCH (09:09)
[2021-09-18] MEDS ORDERED: SODIUM ZIRCONIUM CYCL 10 GM PAK PO ONE (10:15)
[2021-09-18] MEDS ORDERED: FUROSEMIDE 40 MG/4 ML VIAL IV ONE (10:15)
[2021-09-18] MEDS: REMDESIVIR 100mg 100 MG in SODIUM CHL 0.9% 230 ML IV SCH ×2 (14:48→21:51)
[2021-09-18] MEDS: ATORVASTATIN 20 MG TAB PO SCH (21:40)
[2021-09-19] VITALS (11 sets, daily range): BP systolic 120–139; BP diastolic 62–76
[2021-09-19] MEDS: BUDESONIDE (INHALATION) 180 MCG IH IN SCH ×2 (05:46→21:43)
[2021-09-19] MEDS: ALBUTEROL SULF HFA 90MCG INH 200DOSE IN PRN ×2 (05:46→22:55)
[2021-09-19] MEDS: LEVOTHYROXINE SODIUM 100 MCG TAB PO SCH (06:02)
[2021-09-19 07:42] LABS: Potassium 4.4 mmol/L (3.5-5.1)
[2021-09-19 08:00] LABS: Albumin 2.7 g/dL (3.4-5.0); BUN/Creatinine Ratio 40.5; Bilirubin, Total 0.7 mg/dL (0.2-1.0); Calcium 8.4 mg/dL (8.5-10.1); Total Protein 6.4 g/dL (6.4-8.2)
[2021-09-19] MEDS: cefTRIAXone 1GM/50ML D5W 50 ML IV SCH (09:19)
[2021-09-19] MEDS: DexAMETHasone SOD PHOS 4 MG/1ML SDV INJ IV SCH ×2 (09:19→20:32)
[2021-09-19] MEDS: FAMOTIDINE 20 MG TAB PO SCH (09:20)
[2021-09-19] MEDS: VENLAFAXINE HCL 37.5MG TABLET PO SCH (09:20)
[2021-09-19] MEDS: ZINC SULFATE 220mg CAP or TAB PO SCH (09:20)
[2021-09-19] MEDS: ASCORBIC ACID 1,000 MG TAB PO SCH (09:20)
[2021-09-19] MEDS: CHOLECALCIFEROL (VITD3) 2,000 UNIT CAP/TAB PO SCH (09:21)
[2021-09-19] MEDS: CALCIUM W/VIT D (600MG/400IU) TAB PO SCH (09:21)
[2021-09-19] MEDS: AZITHROMYCIN 250 MG TAB PO SCH (09:21)
[2021-09-19] MEDS: FUROSEMIDE 40 MG/4 ML VIAL IV SCH (09:36)
[2021-09-19] MEDS ORDERED: ENOXAPARIN SOD 40 MG/0.4 ML SYRINGE SC ONE (11:45)
[2021-09-19] MEDS ORDERED: CLINIMIX PER PHARMACY 0 ML IV SCH (11:45)
[2021-09-19] MEDS ORDERED: FUROSEMIDE 20 MG/2 ML VIAL IV ONE (12:00)
[2021-09-19 13:04] LABS: Magnesium 2.4 mg/dL (1.6-2.6); Phosphorus 3.9 mg/dL (2.5-4.90)
[2021-09-19] MEDS: DOXYCYCLINE 100MG/250ML 250 ML IV SCH ×2 (14:23→23:47)
[2021-09-19] MEDS ORDERED: AMINO ACID INFUSION IN D10W 1,000 ML IV NR (20:00)
[2021-09-19] MEDS: ENOXAPARIN SOD 40 MG/0.4 ML SYRINGE SC SCH (20:32)
[2021-09-19] MEDS: ATORVASTATIN 20 MG TAB PO SCH (20:32)
[2021-09-19] MEDS: ACCU-CHEK COMFORT CURVE STRIP VI SCH (23:47)
[2021-09-20] VITALS (30 sets, daily range): BP systolic 98–139; BP diastolic 65–99
[2021-09-20] MEDS ORDERED: DEXTROSE (50%) 50ML SYRG IV SCH
[2021-09-20] MEDS: LEVOTHYROXINE SODIUM 50 MCG TAB PO SCH (06:27)
[2021-09-20] MEDS: ACCU-CHEK COMFORT CURVE STRIP VI SCH ×3 (06:27→19:32)
[2021-09-20] MEDS: LEVOTHYROXINE SODIUM 100 MCG TAB PO SCH (06:27)
[2021-09-20] MEDS: InsuLIN REG 1unit/0.01ml Soln (100units/ml) SC SCH ×4 (06:28→19:31)
[2021-09-20 06:40] LABS: Basophils # (auto) 0 10 ^3/uL (0-0.2); Basophils % (auto) 0.2 % (0.0-2.0); Eosinophils # (auto) 0 10 ^3/uL (0-0.8); Hematocrit 49.2 % (36.0-46.0); Hemoglobin 16.7 g/dL (12.2-16.2); Lymphocytes # (auto) 0.4 10 ^3/uL (0.4-5.4); Lymphocytes % (auto) 2.1 % (10.0-50.0); Mean Corpuscular Hemoglobin 31.9 pg (28.0-32.0); Mean Corpuscular Hgb Conc. 33.9 g/dL (32.0-36.0); Monocytes # (auto) 0.7 10 ^3/uL (0-1.3); Monocytes % (auto) 3.5 % (0.0-12.0); Neutrophils # (auto) 18.1 10 ^3/uL (1.6-8.6); Neutrophils % (auto) 94.2 % (37.0-80.0); Nucleated Red Blood Cells % 0.5 %; Red Blood Cells 5.23 10^6/uL (4.0-5.20); Red Cell Distribution Width 14.7 % (11.8-14.3); White Blood Cell 19.2 10^3/uL (4.4-10.8)
[2021-09-20 07:50] LABS: Albumin 2.8 g/dL (3.4-5.0); Calcium 8.8 mg/dL (8.5-10.1); Magnesium 3.2 mg/dL (1.6-2.6); Potassium 4.3 mmol/L (3.5-5.1)
[2021-09-20 07:53] LABS: BUN/Creatinine Ratio 36.3; Phosphorus 3.4 mg/dL (2.5-4.90); Total Protein 6.4 g/dL (6.4-8.2)
[2021-09-20] MEDS: ALBUTEROL SULF HFA 90MCG INH 200DOSE IN PRN (08:38)
[2021-09-20] MEDS: BUDESONIDE (INHALATION) 180 MCG IH IN SCH (08:38)
[2021-09-20] MEDS: CHOLECALCIFEROL (VITD3) 2,000 UNIT CAP/TAB PO SCH (09:56)
[2021-09-20] MEDS: FAMOTIDINE 20 MG TAB PO SCH (09:56)
[2021-09-20] MEDS: DexAMETHasone SOD PHOS 4 MG/1ML SDV INJ IV SCH ×2 (09:56→21:44)
[2021-09-20] MEDS: ASCORBIC ACID 1,000 MG TAB PO SCH (09:56)
[2021-09-20] MEDS: CALCIUM W/VIT D (600MG/400IU) TAB PO SCH (09:56)
[2021-09-20] MEDS: VENLAFAXINE HCL 37.5MG TABLET PO SCH (09:56)
[2021-09-20] MEDS: ENOXAPARIN SOD 40 MG/0.4 ML SYRINGE SC SCH ×2 (09:57→21:43)
[2021-09-20] MEDS: FUROSEMIDE 40 MG/4 ML VIAL IV SCH (09:57)
[2021-09-20] MEDS: ZINC SULFATE 220mg CAP or TAB PO SCH (09:57)
[2021-09-20] MEDS ORDERED: MEROPENEM 500MG IVPB 50 ML IV ONE (10:45)
[2021-09-20] MEDS ORDERED: SALINE 0.65 % NASAL SPRAY 45ML BOTTLE EACHNOSTRI PRN (12:00)
[2021-09-20] MEDS: ACETAMINOPHEN 325 MG TAB PO PRN (12:51)
[2021-09-20] MEDS ORDERED: LORazepam 2MG/ML-1ML VIAL IV PRN ×2 (13:00→16:00)
[2021-09-20] MEDS ORDERED: FUROSEMIDE 20 MG/2 ML VIAL IV ONE (13:00)
[2021-09-20] MEDS ORDERED: FAMOTIDINE (10MG/ML) 2ML VL IV ONE (13:00)
[2021-09-20] MEDS: MEROPENEM 1GM IVPB 100 ML IV SCH ×2 (13:06→21:43)
[2021-09-20] MEDS ORDERED: SUCCINYLCHOLINE CHLORIDE 20 MG/ML 10ML VIAL IV ONE (15:53)
[2021-09-20] MEDS ORDERED: ROCURONIUM 10MG/ML 10ML VIAL IV ONE (15:53)
[2021-09-20] MEDS ORDERED: ETOMIDATE (2MG/ML) 20ML VIAL IV ONE (15:53)
[2021-09-20] MEDS ORDERED: PROPOFOL 100 ML IV ONE (15:57)
[2021-09-20] MEDS ORDERED: fentaNYL Drip 2500mCg/250mlNS 250 ML IV ONE (15:57)
[2021-09-20] MEDS ORDERED: MIDAZOLAM DRIP 50 mg/50mL 50 ML IV ONE (15:57)
[2021-09-20] MEDS: fentaNYL Drip 2500mCg/250mlNS 250 ML IV SCH (18:36)
[2021-09-20] MEDS: PROPOFOL 100 ML IV SCH ×2 (18:36→23:52)
[2021-09-20] MEDS ORDERED: AMINO ACID INFUSION IN D10W 1,000 ML IV NR (20:00)
[2021-09-21] VITALS (66 sets, daily range): BP systolic 71–136; BP diastolic 35–85
[2021-09-21] MEDS: InsuLIN REG 1unit/0.01ml Soln (100units/ml) SC SCH ×4 (00:48→18:00)
[2021-09-21] MEDS: ACCU-CHEK COMFORT CURVE STRIP VI SCH ×4 (00:49→16:57)
[2021-09-21] MEDS: PROPOFOL 100 ML IV SCH ×2 (04:08→06:42)
[2021-09-21] MEDS: fentaNYL Drip 2500mCg/250mlNS 250 ML IV SCH (04:09)
[2021-09-21 04:40] LABS: Basophils # (auto) 0.1 10 ^3/uL (0-0.2); Basophils % (auto) 0.3 % (0.0-2.0); Eosinophils # (auto) 0 10 ^3/uL (0-0.8); Hematocrit 50.6 % (36.0-46.0); Hemoglobin 16.8 g/dL (12.2-16.2); Lymphocytes # (auto) 0.5 10 ^3/uL (0.4-5.4); Lymphocytes % (auto) 2.9 % (10.0-50.0); Mean Corpuscular Hemoglobin 31.4 pg (28.0-32.0); Mean Corpuscular Hgb Conc. 33.2 g/dL (32.0-36.0); Mean Corpuscular Volume 94.6 fL (80.0-100.0); Monocytes # (auto) 0.5 10 ^3/uL (0-1.3); Monocytes % (auto) 2.5 % (0.0-12.0); Neutrophils # (auto) 17.1 10 ^3/uL (1.6-8.6); Neutrophils % (auto) 94.3 % (37.0-80.0); Nucleated Red Blood Cells % 0.4 %; Red Blood Cells 5.36 10^6/uL (4.0-5.20); Red Cell Distribution Width 14.5 % (11.8-14.3); White Blood Cell 18.1 10^3/uL (4.4-10.8)
[2021-09-21 05:06] LABS: Albumin 2.5 g/dL (3.4-5.0); BUN/Creatinine Ratio 36.1; Calcium 8.4 mg/dL (8.5-10.1); Magnesium 2.7 mg/dL (1.6-2.6); Potassium 4.3 mmol/L (3.5-5.1)
[2021-09-21 05:09] LABS: Bilirubin, Total 0.8 mg/dL (0.2-1.0); Phosphorus 7.7 mg/dL (2.5-4.90); Total Protein 6.2 g/dL (6.4-8.2)
[2021-09-21] MEDS: MEROPENEM 1GM IVPB 100 ML IV SCH ×3 (06:39→22:35)
[2021-09-21] MEDS: LEVOTHYROXINE SODIUM 100 MCG TAB PO SCH (06:40)
[2021-09-21] MEDS: LEVOTHYROXINE SODIUM 50 MCG TAB PO SCH (06:41)
[2021-09-21] MEDS: CHOLECALCIFEROL (VITD3) 2,000 UNIT CAP/TAB PO SCH ×2 (10:00→14:17)
[2021-09-21] MEDS: DexAMETHasone SOD PHOS 4 MG/1ML SDV INJ IV SCH ×3 (10:00→23:45)
[2021-09-21] MEDS: ZINC SULFATE 220mg CAP or TAB PO SCH ×2 (10:00→14:08)
[2021-09-21] MEDS: ENOXAPARIN SOD 40 MG/0.4 ML SYRINGE SC SCH ×3 (10:00→23:45)
[2021-09-21] MEDS: FAMOTIDINE (10MG/ML) 2ML VL IV SCH ×2 (10:00→14:07)
[2021-09-21] MEDS: ASCORBIC ACID 1,000 MG TAB PO SCH ×2 (10:00→14:08)
[2021-09-21] MEDS ORDERED: MEROPENEM 500MG IVPB 50 ML IV SCH (10:00)
[2021-09-21] MEDS: MIDAZOLAM DRIP 50 mg/50mL 50 ML IV SCH ×2 (14:05→16:54)
[2021-09-21] MEDS: ALBUTEROL SULF 2.5 MG/0.5ML(0.5%) NEB SOLN NEB PRN ×3 (15:34→22:33)
[2021-09-21] MEDS: BUDESONIDE (INHALATION) 0.5 MG/2 ML NEB NEB SCH ×2 (15:34→22:33)
[2021-09-21] MEDS ORDERED: TPN PER PHARMACY IV SCH (18:15)
[2021-09-21] MEDS: NOREPINEPHRINE 8 MG/250ML KIT 250 ML IV SCH ×2 (20:57→22:36)
[2021-09-21] MEDS: SODIUM CHLORIDE IV NR ×6 (21:49)
[2021-09-21] MEDS: [UNRECOGNIZED DRUG - OTHER] IV NR ×6 (21:49)
[2021-09-21] MEDS: TRACE MINERALS IV NR ×6 (21:49)
[2021-09-22] VITALS (106 sets, daily range): BP systolic 86–129; BP diastolic 27–71
[2021-09-22] MEDS: ACCU-CHEK COMFORT CURVE STRIP VI SCH ×5 (00:04→19:00)
[2021-09-22] MEDS: InsuLIN REG 1unit/0.01ml Soln (100units/ml) SC SCH ×5 (00:06→19:00)
[2021-09-22] MEDS: MIDAZOLAM DRIP 50 mg/50mL 50 ML IV SCH ×3 (00:44→19:30)
[2021-09-22 05:30] LABS: Basophils # (auto) 0 10 ^3/uL (0-0.2); Basophils % (auto) 0.3 % (0.0-2.0); Eosinophils # (auto) 0 10 ^3/uL (0-0.8); Hemoglobin 14.3 g/dL (12.2-16.2); Lymphocytes # (auto) 0.3 10 ^3/uL (0.4-5.4); Lymphocytes % (auto) 2.4 % (10.0-50.0); Mean Corpuscular Hemoglobin 32.2 pg (28.0-32.0); Mean Corpuscular Hgb Conc. 34.1 g/dL (32.0-36.0); Mean Corpuscular Volume 94.5 fL (80.0-100.0); Monocytes # (auto) 0.5 10 ^3/uL (0-1.3); Monocytes % (auto) 4.2 % (0.0-12.0); Neutrophils # (auto) 11.8 10 ^3/uL (1.6-8.6); Neutrophils % (auto) 93.1 % (37.0-80.0); Nucleated Red Blood Cells % 0.1 %; Red Blood Cells 4.45 10^6/uL (4.0-5.20); Red Cell Distribution Width 14.2 % (11.8-14.3); White Blood Cell 12.7 10^3/uL (4.4-10.8)
[2021-09-22 06:01] LABS: Albumin 2.1 g/dL (3.4-5.0); Calcium 7.9 mg/dL (8.5-10.1); Magnesium 3.4 mg/dL (1.6-2.6); Potassium 3.5 mmol/L (3.5-5.1)
[2021-09-22] MEDS: MEROPENEM 1GM IVPB 100 ML IV SCH ×2 (06:04→18:01)
[2021-09-22 06:05] LABS: BUN/Creatinine Ratio 52.8; Bilirubin, Total 0.4 mg/dL (0.2-1.0); Phosphorus 3.2 mg/dL (2.5-4.90); Total Protein 5.2 g/dL (6.4-8.2)
[2021-09-22] MEDS: LEVOTHYROXINE SODIUM 50 MCG TAB PO SCH ×2 (08:00→13:09)
[2021-09-22] MEDS: LEVOTHYROXINE SODIUM 100 MCG TAB PO SCH ×2 (08:00→13:08)
[2021-09-22] MEDS: BUDESONIDE (INHALATION) 0.5 MG/2 ML NEB NEB SCH ×2 (10:00→21:57)
[2021-09-22] MEDS: ENOXAPARIN SOD 40 MG/0.4 ML SYRINGE SC SCH ×3 (10:00→22:00)
[2021-09-22] MEDS: FAMOTIDINE (10MG/ML) 2ML VL IV SCH ×2 (10:00→13:10)
[2021-09-22] MEDS: CHOLECALCIFEROL (VITD3) 2,000 UNIT CAP/TAB PO SCH ×2 (10:00→13:11)
[2021-09-22] MEDS: ASCORBIC ACID 1,000 MG TAB PO SCH ×2 (10:00→13:11)
[2021-09-22] MEDS: ZINC SULFATE 220mg CAP or TAB PO SCH ×2 (10:00→13:10)
[2021-09-22] MEDS: DexAMETHasone SOD PHOS 4 MG/1ML SDV INJ IV SCH ×3 (10:00→22:00)
[2021-09-22] MEDS ORDERED: INSULIN LANTUS (GLARGINE) 1 /0.01ml (100units/ml) SC ONE (14:45)
[2021-09-22] MEDS: fentaNYL Drip 2500mCg/250mlNS 250 ML IV SCH (15:20)
[2021-09-22] MEDS: SODIUM CHLORIDE 0.9% 1,000 ML IV SCH (15:25)
[2021-09-22] MEDS: NOREPINEPHRINE 8 MG/250ML KIT 250 ML IV SCH ×2 (16:30→18:03)
[2021-09-22] MEDS: PROPOFOL 100 ML IV SCH (19:00)
[2021-09-22] MEDS: [UNRECOGNIZED DRUG - OTHER] IV NR ×6 (19:58)
[2021-09-22] MEDS: TRACE MINERALS IV NR ×6 (19:58)
[2021-09-22] MEDS: SODIUM CHLORIDE IV NR ×6 (19:58)
[2021-09-22] MEDS ORDERED: TPN PER PHARMACY IV NR ×7 (20:00)
[2021-09-22] MEDS: ALBUTEROL SULF 2.5 MG/0.5ML(0.5%) NEB SOLN NEB PRN (21:57)
[2021-09-22] MEDS: INSULIN LANTUS (GLARGINE) 1 /0.01ml (100units/ml) SC SCH (22:00)
[2021-09-23] VITALS (107 sets, daily range): BP systolic 86–115; BP diastolic 34–56
[2021-09-23] MEDS: ACCU-CHEK COMFORT CURVE STRIP VI SCH ×4 (00:06→20:04)
[2021-09-23] MEDS: InsuLIN REG 1unit/0.01ml Soln (100units/ml) SC SCH ×4 (00:08→20:03)
[2021-09-23 04:41] LABS: Basophils # (auto) 0.1 10 ^3/uL (0-0.2); Basophils % (auto) 0.5 % (0.0-2.0); Eosinophils # (auto) 0 10 ^3/uL (0-0.8); Hematocrit 39.8 % (36.0-46.0); Hemoglobin 13.4 g/dL (12.2-16.2); Lymphocytes # (auto) 0.2 10 ^3/uL (0.4-5.4); Lymphocytes % (auto) 1.9 % (10.0-50.0); Mean Corpuscular Hemoglobin 31.5 pg (28.0-32.0); Mean Corpuscular Hgb Conc. 33.8 g/dL (32.0-36.0); Mean Corpuscular Volume 93.4 fL (80.0-100.0); Monocytes # (auto) 0.4 10 ^3/uL (0-1.3); Monocytes % (auto) 3.2 % (0.0-12.0); Neutrophils # (auto) 11.4 10 ^3/uL (1.6-8.6); Neutrophils % (auto) 94.4 % (37.0-80.0); Nucleated Red Blood Cells % 0.3 %; Red Blood Cells 4.27 10^6/uL (4.0-5.20); Red Cell Distribution Width 14.1 % (11.8-14.3); White Blood Cell 12.1 10^3/uL (4.4-10.8)
[2021-09-23 04:59] LABS: Potassium 3.8 mmol/L (3.5-5.1)
[2021-09-23] MEDS: MIDAZOLAM DRIP 50 mg/50mL 50 ML IV SCH ×2 (05:00→19:00)
[2021-09-23] MEDS: Jevity 1.2 Cal/Fiber 1 Liter GT SCH (05:00)
[2021-09-23 05:05] LABS: Bilirubin, Total 0.4 mg/dL (0.2-1.0); Magnesium 2.8 mg/dL (1.6-2.6); Phosphorus 1.9 mg/dL (2.5-4.90)
[2021-09-23] MEDS: MEROPENEM 1GM IVPB 100 ML IV SCH ×3 (06:17→20:02)
[2021-09-23] MEDS: LEVOTHYROXINE SODIUM 50 MCG TAB PO SCH ×2 (07:30→08:09)
[2021-09-23] MEDS: LEVOTHYROXINE SODIUM 100 MCG TAB PO SCH ×2 (07:30→08:08)
[2021-09-23] MEDS: INSULIN LANTUS (GLARGINE) 1 /0.01ml (100units/ml) SC SCH ×2 (08:29→23:28)
[2021-09-23] MEDS ORDERED: POTASSIUM PHOSPHATE 22 MEQ in SODIUM CHL 0.9% 100 ML IV ONE (09:00)
[2021-09-23] MEDS: BUDESONIDE (INHALATION) 0.5 MG/2 ML NEB NEB SCH ×2 (09:30→18:31)
[2021-09-23] MEDS: ENOXAPARIN SOD 40 MG/0.4 ML SYRINGE SC SCH ×2 (10:51→23:18)
[2021-09-23] MEDS: SODIUM CHLORIDE 0.9% 1,000 ML IV SCH (10:53)
[2021-09-23] MEDS: DexAMETHasone SOD PHOS 4 MG/1ML SDV INJ IV SCH ×2 (10:54→23:18)
[2021-09-23] MEDS: FAMOTIDINE (10MG/ML) 2ML VL IV SCH (10:55)
[2021-09-23] MEDS: ZINC SULFATE 220mg CAP or TAB PO SCH (10:55)
[2021-09-23] MEDS: ASCORBIC ACID 1,000 MG TAB PO SCH (10:55)
[2021-09-23] MEDS: CHOLECALCIFEROL (VITD3) 2,000 UNIT CAP/TAB PO SCH (10:56)
[2021-09-23] MEDS: NOREPINEPHRINE 8 MG/250ML KIT 250 ML IV SCH (16:30)
[2021-09-23] MEDS: PROPOFOL 100 ML IV SCH (16:30)
[2021-09-23] MEDS: ALBUTEROL SULF 2.5 MG/0.5ML(0.5%) NEB SOLN NEB PRN (18:31)
[2021-09-23] MEDS: fentaNYL Drip 2500mCg/250mlNS 250 ML IV SCH (19:00)
[2021-09-23] MEDS ORDERED: TPN PER PHARMACY IV NR ×9 (20:00)
[2021-09-24] VITALS (91 sets, daily range): BP systolic 77–114; BP diastolic 31–64
[2021-09-24] MEDS: MEROPENEM 1GM IVPB 100 ML IV SCH ×3 (02:00→19:41)
[2021-09-24] MEDS: MIDAZOLAM DRIP 50 mg/50mL 50 ML IV SCH ×2 (04:50→19:00)
[2021-09-24] MEDS: InsuLIN REG 1unit/0.01ml Soln (100units/ml) SC SCH ×4 (06:00→19:42)
[2021-09-24 06:24] LABS: Basophils # (auto) 0 10 ^3/uL (0-0.2); Basophils % (auto) 0.2 % (0.0-2.0); Eosinophils # (auto) 0 10 ^3/uL (0-0.8); Hematocrit 39.2 % (36.0-46.0); Hemoglobin 12.8 g/dL (12.2-16.2); Lymphocytes # (auto) 0.3 10 ^3/uL (0.4-5.4); Mean Corpuscular Hemoglobin 30.9 pg (28.0-32.0); Mean Corpuscular Hgb Conc. 32.8 g/dL (32.0-36.0); Mean Corpuscular Volume 94.2 fL (80.0-100.0); Monocytes # (auto) 0.4 10 ^3/uL (0-1.3); Monocytes % (auto) 5.4 % (0.0-12.0); Neutrophils # (auto) 7.4 10 ^3/uL (1.6-8.6); Neutrophils % (auto) 90.4 % (37.0-80.0); Nucleated Red Blood Cells % 0.1 %; Red Blood Cells 4.16 10^6/uL (4.0-5.20); White Blood Cell 8.2 10^3/uL (4.4-10.8)
[2021-09-24] MEDS: ACCU-CHEK COMFORT CURVE STRIP VI SCH ×4 (06:27→19:42)
[2021-09-24] MEDS: LEVOTHYROXINE SODIUM 100 MCG TAB PO SCH (06:28)
[2021-09-24] MEDS: LEVOTHYROXINE SODIUM 50 MCG TAB PO SCH (06:28)
[2021-09-24] MEDS: INSULIN LANTUS (GLARGINE) 1 /0.01ml (100units/ml) SC SCH ×2 (06:30→22:12)
[2021-09-24 06:32] LABS: BUN/Creatinine Ratio 72.7; Calcium 7.7 mg/dL (8.5-10.1); Potassium 4.3 mmol/L (3.5-5.1)
[2021-09-24] MEDS: ALBUTEROL SULF 2.5 MG/0.5ML(0.5%) NEB SOLN NEB PRN ×2 (06:46→18:34)
[2021-09-24] MEDS: BUDESONIDE (INHALATION) 0.5 MG/2 ML NEB NEB SCH ×2 (06:46→18:34)
[2021-09-24] MEDS: DexAMETHasone SOD PHOS 4 MG/1ML SDV INJ IV SCH ×2 (10:41→22:10)
[2021-09-24] MEDS: ZINC SULFATE 220mg CAP or TAB PO SCH (10:42)
[2021-09-24] MEDS: FAMOTIDINE (10MG/ML) 2ML VL IV SCH (10:42)
[2021-09-24] MEDS: CHOLECALCIFEROL (VITD3) 2,000 UNIT CAP/TAB PO SCH (10:43)
[2021-09-24] MEDS: ASCORBIC ACID 1,000 MG TAB PO SCH (10:43)
[2021-09-24] MEDS: ENOXAPARIN SOD 40 MG/0.4 ML SYRINGE SC SCH ×2 (10:43→22:10)
[2021-09-24] MEDS: PROPOFOL 100 ML IV SCH (16:30)
[2021-09-24] MEDS: NOREPINEPHRINE 8 MG/250ML KIT 250 ML IV SCH (16:30)
[2021-09-24] MEDS: fentaNYL Drip 2500mCg/250mlNS 250 ML IV SCH (19:00)
[2021-09-25] VITALS (99 sets, daily range): BP systolic 85–117; BP diastolic 36–58
[2021-09-25] MEDS: ACCU-CHEK COMFORT CURVE STRIP VI SCH ×4 (01:00→17:11)
[2021-09-25] MEDS: InsuLIN REG 1unit/0.01ml Soln (100units/ml) SC SCH ×4 (01:01→17:11)
[2021-09-25] MEDS: MEROPENEM 1GM IVPB 100 ML IV SCH ×3 (02:38→17:38)
[2021-09-25] MEDS: MIDAZOLAM DRIP 50 mg/50mL 50 ML IV SCH ×2 (03:50→19:00)
[2021-09-25] MEDS: LEVOTHYROXINE SODIUM 100 MCG TAB PO SCH (06:50)
[2021-09-25] MEDS: LEVOTHYROXINE SODIUM 50 MCG TAB PO SCH (06:50)
[2021-09-25] MEDS: INSULIN LANTUS (GLARGINE) 1 /0.01ml (100units/ml) SC SCH ×2 (06:52→22:00)
[2021-09-25] MEDS: ALBUTEROL SULF 2.5 MG/0.5ML(0.5%) NEB SOLN NEB PRN ×2 (07:24→23:08)
[2021-09-25] MEDS: BUDESONIDE (INHALATION) 0.5 MG/2 ML NEB NEB SCH ×2 (07:25→23:09)
[2021-09-25] MEDS: FAMOTIDINE (10MG/ML) 2ML VL IV SCH (07:54)
[2021-09-25] MEDS: ZINC SULFATE 220mg CAP or TAB PO SCH (07:54)
[2021-09-25] MEDS: DexAMETHasone SOD PHOS 4 MG/1ML SDV INJ IV SCH ×2 (07:54→22:20)
[2021-09-25] MEDS: ASCORBIC ACID 1,000 MG TAB PO SCH (07:55)
[2021-09-25] MEDS: CHOLECALCIFEROL (VITD3) 2,000 UNIT CAP/TAB PO SCH (07:55)
[2021-09-25] MEDS: ENOXAPARIN SOD 40 MG/0.4 ML SYRINGE SC SCH ×2 (07:55→22:21)
[2021-09-25] MEDS: PROPOFOL 100 ML IV SCH (14:38)
[2021-09-25] MEDS: fentaNYL Drip 2500mCg/250mlNS 250 ML IV SCH ×2 (14:38→15:49)
[2021-09-25] MEDS: NOREPINEPHRINE 8 MG/250ML KIT 250 ML IV SCH (15:42)
[2021-09-26] VITALS (96 sets, daily range): BP systolic 78–122; BP diastolic 30–62
[2021-09-26] MEDS: MEROPENEM 1GM IVPB 100 ML IV SCH ×3 (02:02→18:15)
[2021-09-26] MEDS: NOREPINEPHRINE 8 MG/250ML KIT 250 ML IV SCH (03:59)
[2021-09-26] MEDS: MIDAZOLAM DRIP 50 mg/50mL 50 ML IV SCH (04:55)
[2021-09-26] MEDS: ACCU-CHEK COMFORT CURVE STRIP VI SCH ×5 (06:17→23:38)
[2021-09-26] MEDS: InsuLIN REG 1unit/0.01ml Soln (100units/ml) SC SCH ×5 (06:17→23:38)
[2021-09-26] MEDS: LEVOTHYROXINE SODIUM 100 MCG TAB PO SCH (06:44)
[2021-09-26] MEDS: LEVOTHYROXINE SODIUM 50 MCG TAB PO SCH (06:45)
[2021-09-26] MEDS: INSULIN LANTUS (GLARGINE) 1 /0.01ml (100units/ml) SC SCH ×2 (06:47→22:00)
[2021-09-26] MEDS: fentaNYL Drip 2500mCg/250mlNS 250 ML IV SCH (08:20)
[2021-09-26] MEDS: DexAMETHasone SOD PHOS 4 MG/1ML SDV INJ IV SCH ×2 (09:24→22:00)
[2021-09-26] MEDS: FAMOTIDINE (10MG/ML) 2ML VL IV SCH (09:25)
[2021-09-26] MEDS: ENOXAPARIN SOD 40 MG/0.4 ML SYRINGE SC SCH ×2 (09:25→22:24)
[2021-09-26] MEDS: ZINC SULFATE 220mg CAP or TAB PO SCH (09:25)
[2021-09-26] MEDS: CHOLECALCIFEROL (VITD3) 2,000 UNIT CAP/TAB PO SCH (09:25)
[2021-09-26] MEDS: ASCORBIC ACID 1,000 MG TAB PO SCH (09:25)
[2021-09-26] MEDS: BUDESONIDE (INHALATION) 0.5 MG/2 ML NEB NEB SCH ×2 (11:09→22:23)
[2021-09-26] MEDS: PROPOFOL 100 ML IV SCH (16:30)
[2021-09-26] MEDS: ALBUTEROL SULF 2.5 MG/0.5ML(0.5%) NEB SOLN NEB PRN (22:23)
[2021-09-27] VITALS (102 sets, daily range): BP systolic 87–135; BP diastolic 37–70
[2021-09-27] MEDS: MEROPENEM 1GM IVPB 100 ML IV SCH ×3 (02:00→18:52)
[2021-09-27 02:16] LABS: Hematocrit 42.8 % (36.0-46.0); Hemoglobin 13.9 g/dL (12.2-16.2); Mean Corpuscular Hemoglobin 30.8 pg (28.0-32.0); Mean Corpuscular Hgb Conc. 32.4 g/dL (32.0-36.0); Mean Corpuscular Volume 95.2 fL (80.0-100.0); White Blood Cell 12.4 10^3/uL (4.4-10.8)
[2021-09-27 02:48] LABS: Basophils % (manual) 0 (0.0-2.0); Blast Cells 0; Eosinophils % (manual) 0 (0-7); Metamyelocytes % 0; Promyelocytes % 0; Reactive Lymphocytes 0
[2021-09-27 03:12] LABS: BUN/Creatinine Ratio 75.9; Calcium 7.9 mg/dL (8.5-10.1); Potassium 5.2 mmol/L (3.5-5.1)
[2021-09-27 05:31] LABS: Band Neutrophils % (manual) 9; Lymphocytes % (manual) 5 (10.0-50.0); Monocytes % (manual) 4 (0-12); Myelocytes % 1
[2021-09-27] MEDS: InsuLIN REG 1unit/0.01ml Soln (100units/ml) SC SCH ×3 (05:49→18:53)
[2021-09-27] MEDS: ACCU-CHEK COMFORT CURVE STRIP VI SCH ×3 (05:49→18:52)
[2021-09-27] MEDS: LEVOTHYROXINE SODIUM 100 MCG TAB PO SCH (05:50)
[2021-09-27] MEDS: LEVOTHYROXINE SODIUM 50 MCG TAB PO SCH (05:50)
[2021-09-27] MEDS: INSULIN LANTUS (GLARGINE) 1 /0.01ml (100units/ml) SC SCH ×2 (05:50→22:00)
[2021-09-27] MEDS: ENOXAPARIN SOD 40 MG/0.4 ML SYRINGE SC SCH ×2 (09:37→22:00)
[2021-09-27] MEDS: ZINC SULFATE 220mg CAP or TAB PO SCH (09:37)
[2021-09-27] MEDS: FAMOTIDINE (10MG/ML) 2ML VL IV SCH (09:37)
[2021-09-27] MEDS: CHOLECALCIFEROL (VITD3) 2,000 UNIT CAP/TAB PO SCH (09:37)
[2021-09-27] MEDS: ASCORBIC ACID 1,000 MG TAB PO SCH (09:37)
[2021-09-27] MEDS: BUDESONIDE (INHALATION) 0.5 MG/2 ML NEB NEB SCH ×2 (10:46→18:31)
[2021-09-27] MEDS: ALBUTEROL SULF 2.5 MG/0.5ML(0.5%) NEB SOLN NEB PRN ×2 (10:46→18:31)
[2021-09-27] MEDS: DexAMETHasone SOD PHOS 4 MG/1ML SDV INJ IV SCH ×2 (11:56→22:00)
[2021-09-27] MEDS ORDERED: FUROSEMIDE 20 MG/2 ML VIAL IV ONE (14:15)
[2021-09-27] MEDS ORDERED: METOCLOPRAMIDE HCL 5MG/ml INJ 2ml VIAL IV ONE (14:15)
[2021-09-27] MEDS ORDERED: CALCIUM GLUC 1,000mg/50ml-NS 50 ML IV ONE (14:15)
[2021-09-27] MEDS ORDERED: LACTULOSE 20Gm/30ML SOLN PO ONE (14:15)
[2021-09-27] MEDS: MIDAZOLAM DRIP 50 mg/50mL 50 ML IV SCH (16:30)
[2021-09-27] MEDS: fentaNYL Drip 2500mCg/250mlNS 250 ML IV SCH (16:30)
[2021-09-27] MEDS: NOREPINEPHRINE 8 MG/250ML KIT 250 ML IV SCH (16:30)
[2021-09-27] MEDS: PROPOFOL 100 ML IV SCH (17:19)
[2021-09-27] MEDS: LACTULOSE 20Gm/30ML SOLN PO SCH (22:00)
[2021-09-27] MEDS: METOCLOPRAMIDE HCL 5MG/ml INJ 2ml VIAL IV SCH (22:00)
[2021-09-28] VITALS (38 sets, daily range): BP systolic 102–137; BP diastolic 47–72
[2021-09-28] MEDS: MEROPENEM 1GM IVPB 100 ML IV SCH ×3 (02:00→19:34)
[2021-09-28 02:33] LABS: Hematocrit 41.2 % (36.0-46.0); Hemoglobin 13.6 g/dL (12.2-16.2); Mean Corpuscular Hemoglobin 31.3 pg (28.0-32.0); Mean Corpuscular Volume 94.8 fL (80.0-100.0); Red Blood Cells 4.35 10^6/uL (4.0-5.20); Red Cell Distribution Width 14.4 % (11.8-14.3); White Blood Cell 13.7 10^3/uL (4.4-10.8)
[2021-09-28 02:54] LABS: Albumin 1.9 g/dL (3.4-5.0); BUN/Creatinine Ratio 64.8; Calcium 8.2 mg/dL (8.5-10.1); Potassium 5.3 mmol/L (3.5-5.1)
[2021-09-28 02:56] LABS: Total Protein 5.7 g/dL (6.4-8.2)
[2021-09-28 03:19] LABS: Basophils % (manual) 0 (0.0-2.0); Blast Cells 0; Eosinophils % (manual) 0 (0-7); Promyelocytes % 0; Reactive Lymphocytes 0
[2021-09-28 05:17] LABS: Band Neutrophils % (manual) 16; Lymphocytes % (manual) 5 (10.0-50.0); Metamyelocytes % 2; Monocytes % (manual) 3 (0-12); Myelocytes % 1
[2021-09-28] MEDS: METOCLOPRAMIDE HCL 5MG/ml INJ 2ml VIAL IV SCH ×3 (05:55→22:00)
[2021-09-28] MEDS: ACCU-CHEK COMFORT CURVE STRIP VI SCH ×4 (05:56→19:34)
[2021-09-28] MEDS: InsuLIN REG 1unit/0.01ml Soln (100units/ml) SC SCH ×4 (05:57→19:35)
[2021-09-28] MEDS: INSULIN LANTUS (GLARGINE) 1 /0.01ml (100units/ml) SC SCH ×2 (05:58→22:00)
[2021-09-28] MEDS: LEVOTHYROXINE SODIUM 100 MCG TAB PO SCH (05:58)
[2021-09-28] MEDS: LEVOTHYROXINE SODIUM 50 MCG TAB PO SCH (05:58)
[2021-09-28] MEDS: DexAMETHasone SOD PHOS 4 MG/1ML SDV INJ IV SCH ×2 (09:32→23:23)
[2021-09-28] MEDS: ENOXAPARIN SOD 40 MG/0.4 ML SYRINGE SC SCH ×2 (09:32→23:23)
[2021-09-28] MEDS: FAMOTIDINE (10MG/ML) 2ML VL IV SCH (09:32)
[2021-09-28] MEDS: LACTULOSE 20Gm/30ML SOLN PO SCH ×2 (09:32→23:23)
[2021-09-28] MEDS: FUROSEMIDE 20 MG/2 ML VIAL IV SCH (09:33)
[2021-09-28] MEDS: ASCORBIC ACID 1,000 MG TAB PO SCH (09:34)
[2021-09-28] MEDS: ZINC SULFATE 220mg CAP or TAB PO SCH (09:34)
[2021-09-28] MEDS: CHOLECALCIFEROL (VITD3) 2,000 UNIT CAP/TAB PO SCH (09:34)
[2021-09-28] MEDS: BUDESONIDE (INHALATION) 0.5 MG/2 ML NEB NEB SCH ×2 (10:00→19:30)
[2021-09-28] MEDS: fentaNYL Drip 2500mCg/250mlNS 250 ML IV SCH (12:04)
[2021-09-28] MEDS: MIDAZOLAM DRIP 50 mg/50mL 50 ML IV SCH ×3 (12:06→19:50)
[2021-09-28] MEDS ORDERED: SODIUM ZIRCONIUM CYCL 10 GM PAK PO ONE (14:30)
[2021-09-28] MEDS: PROPOFOL 100 ML IV SCH ×2 (16:30→17:00)
[2021-09-28 19:24] LABS: INR 1.07 (0.9-1.15); Partial Thromboplastin Time 25.5 sec (23.6-33.0)
[2021-09-28] MEDS: ALBUTEROL SULF 2.5 MG/0.5ML(0.5%) NEB SOLN NEB PRN (19:30)
[2021-09-28] MEDS: NOREPINEPHRINE 8 MG/250ML KIT 250 ML IV SCH (19:33)
[2021-09-28] MEDS: SODIUM ZIRCONIUM CYCL 10 GM PAK PO SCH (23:23)
[2021-09-29] VITALS (93 sets, daily range): BP systolic 87–123; BP diastolic 37–65
[2021-09-29] MEDS: ACCU-CHEK COMFORT CURVE STRIP VI SCH ×4 (00:54→17:37)
[2021-09-29] MEDS: MEROPENEM 1GM IVPB 100 ML IV SCH ×3 (02:56→20:56)
[2021-09-29 04:11] LABS: BUN/Creatinine Ratio 103.6; Potassium 4.6 mmol/L (3.5-5.1)
[2021-09-29 04:20] LABS: Basophils # (auto) 0.1 10 ^3/uL (0-0.2); Basophils % (auto) 0.9 % (0.0-2.0); Eosinophils # (auto) 0 10 ^3/uL (0-0.8); Hematocrit 38.2 % (36.0-46.0); Hemoglobin 12.6 g/dL (12.2-16.2); Lymphocytes # (auto) 0.5 10 ^3/uL (0.4-5.4); Mean Corpuscular Hemoglobin 31.5 pg (28.0-32.0); Mean Corpuscular Volume 95.6 fL (80.0-100.0); Monocytes # (auto) 0.2 10 ^3/uL (0-1.3); Monocytes % (auto) 3.3 % (0.0-12.0); Neutrophils # (auto) 5.7 10 ^3/uL (1.6-8.6); Neutrophils % (auto) 87.8 % (37.0-80.0); Nucleated Red Blood Cells % 1.6 %; Red Blood Cells 3.99 10^6/uL (4.0-5.20); White Blood Cell 6.5 10^3/uL (4.4-10.8)
[2021-09-29] MEDS: SODIUM ZIRCONIUM CYCL 10 GM PAK PO SCH (05:37)
[2021-09-29] MEDS: METOCLOPRAMIDE HCL 5MG/ml INJ 2ml VIAL IV SCH ×3 (05:37→22:03)
[2021-09-29] MEDS: INSULIN LANTUS (GLARGINE) 1 /0.01ml (100units/ml) SC SCH ×2 (05:38→22:46)
[2021-09-29] MEDS: BUDESONIDE (INHALATION) 0.5 MG/2 ML NEB NEB SCH ×2 (06:22→18:40)
[2021-09-29] MEDS: ALBUTEROL SULF 2.5 MG/0.5ML(0.5%) NEB SOLN NEB PRN ×2 (06:22→18:40)
[2021-09-29] MEDS: InsuLIN REG 1unit/0.01ml Soln (100units/ml) SC SCH ×4 (06:36→17:34)
[2021-09-29] MEDS: LEVOTHYROXINE SODIUM 100 MCG TAB PO SCH (06:37)
[2021-09-29] MEDS: LEVOTHYROXINE SODIUM 50 MCG TAB PO SCH (06:38)
[2021-09-29] MEDS: LACTULOSE 20Gm/30ML SOLN PO SCH ×2 (10:00→22:03)
[2021-09-29] MEDS: MIDAZOLAM DRIP 50 mg/50mL 50 ML IV SCH ×3 (10:19→17:43)
[2021-09-29] MEDS: CHOLECALCIFEROL (VITD3) 2,000 UNIT CAP/TAB PO SCH (10:30)
[2021-09-29] MEDS: ZINC SULFATE 220mg CAP or TAB PO SCH (10:30)
[2021-09-29] MEDS: ENOXAPARIN SOD 40 MG/0.4 ML SYRINGE SC SCH (10:30)
[2021-09-29] MEDS: FUROSEMIDE 20 MG/2 ML VIAL IV SCH (10:31)
[2021-09-29] MEDS: ASCORBIC ACID 1,000 MG TAB PO SCH (10:31)
[2021-09-29] MEDS: FAMOTIDINE (10MG/ML) 2ML VL IV SCH (10:31)
[2021-09-29] MEDS: DexAMETHasone SOD PHOS 4 MG/1ML SDV INJ IV SCH ×2 (10:31→22:03)
[2021-09-29] MEDS ORDERED: LIDOCAINE 1% (LOCAL ANESTH.) PF 5ml SDV ID ONE (15:45)
[2021-09-29] MEDS: PROPOFOL 100 ML IV SCH (16:30)
[2021-09-29] MEDS: NOREPINEPHRINE 8 MG/250ML KIT 250 ML IV SCH (16:30)
[2021-09-29] MEDS: fentaNYL Drip 2500mCg/250mlNS 250 ML IV SCH ×2 (16:30→23:44)
[2021-09-29] MEDS: SODIUM CHLOR 0.9% PF (SALINE LOCK) 10ML VIAL/SYR IV SCH (22:05)
[2021-09-30] VITALS (97 sets, daily range): BP systolic 85–146; BP diastolic 42–70
[2021-09-30] MEDS: MIDAZOLAM DRIP 50 mg/50mL 50 ML IV SCH ×2 (00:42→02:23)
[2021-09-30] MEDS: InsuLIN REG 1unit/0.01ml Soln (100units/ml) SC SCH ×5 (01:06→23:55)
[2021-09-30 05:04] LABS: Basophils # (auto) 0 10 ^3/uL (0-0.2); Basophils % (auto) 0.3 % (0.0-2.0); Eosinophils # (auto) 0 10 ^3/uL (0-0.8); Hematocrit 42.3 % (36.0-46.0); Hemoglobin 13.9 g/dL (12.2-16.2); Lymphocytes # (auto) 0.4 10 ^3/uL (0.4-5.4); Lymphocytes % (auto) 4.4 % (10.0-50.0); Mean Corpuscular Hemoglobin 31.3 pg (28.0-32.0); Mean Corpuscular Hgb Conc. 32.8 g/dL (32.0-36.0); Mean Corpuscular Volume 95.5 fL (80.0-100.0); Monocytes # (auto) 0.3 10 ^3/uL (0-1.3); Monocytes % (auto) 3.4 % (0.0-12.0); Neutrophils # (auto) 8.8 10 ^3/uL (1.6-8.6); Neutrophils % (auto) 91.9 % (37.0-80.0); Nucleated Red Blood Cells % 0.3 %; Red Blood Cells 4.43 10^6/uL (4.0-5.20); Red Cell Distribution Width 14.1 % (11.8-14.3); White Blood Cell 9.6 10^3/uL (4.4-10.8)
[2021-09-30 05:29] LABS: BUN/Creatinine Ratio 89.5; Calcium 8.2 mg/dL (8.5-10.1); Potassium 4.3 mmol/L (3.5-5.1)
[2021-09-30] MEDS: ACCU-CHEK COMFORT CURVE STRIP VI SCH ×5 (06:00→23:57)
[2021-09-30] MEDS: LEVOTHYROXINE SODIUM 100 MCG TAB PO SCH (06:28)
[2021-09-30] MEDS: LEVOTHYROXINE SODIUM 50 MCG TAB PO SCH (06:29)
[2021-09-30] MEDS: MEROPENEM 1GM IVPB 100 ML IV SCH ×3 (06:32→17:39)
[2021-09-30] MEDS: METOCLOPRAMIDE HCL 5MG/ml INJ 2ml VIAL IV SCH ×3 (06:33→23:52)
[2021-09-30] MEDS: INSULIN LANTUS (GLARGINE) 1 /0.01ml (100units/ml) SC SCH (07:00)
[2021-09-30] MEDS: BUDESONIDE (INHALATION) 0.5 MG/2 ML NEB NEB SCH ×2 (10:00→18:38)
[2021-09-30] MEDS: DexAMETHasone SOD PHOS 4 MG/1ML SDV INJ IV SCH ×2 (10:09→23:52)
[2021-09-30] MEDS: LACTULOSE 20Gm/30ML SOLN PO SCH ×2 (10:10→23:53)
[2021-09-30] MEDS: ASCORBIC ACID 1,000 MG TAB PO SCH (10:10)
[2021-09-30] MEDS: ZINC SULFATE 220mg CAP or TAB PO SCH (10:10)
[2021-09-30] MEDS: CHOLECALCIFEROL (VITD3) 2,000 UNIT CAP/TAB PO SCH (10:10)
[2021-09-30] MEDS: SODIUM CHLOR 0.9% PF (SALINE LOCK) 10ML VIAL/SYR IV SCH ×2 (10:10→23:53)
[2021-09-30] MEDS: FAMOTIDINE (10MG/ML) 2ML VL IV SCH (10:10)
[2021-09-30] MEDS: FUROSEMIDE 20 MG/2 ML VIAL IV SCH (10:10)
[2021-09-30] MEDS: PROPOFOL 100 ML IV SCH (16:30)
[2021-09-30] MEDS: NOREPINEPHRINE 8 MG/250ML KIT 250 ML IV SCH (16:30)
[2021-09-30] MEDS: ALBUTEROL SULF 2.5 MG/0.5ML(0.5%) NEB SOLN NEB PRN (18:38)
[2021-10-01] VITALS (80 sets, daily range): BP systolic 87–158; BP diastolic 29–72
[2021-10-01] MEDS: fentaNYL Drip 2500mCg/250mlNS 250 ML IV SCH
[2021-10-01] MEDS: INSULIN LANTUS (GLARGINE) 1 /0.01ml (100units/ml) SC SCH ×3 (00:02→22:21)
[2021-10-01] MEDS: MEROPENEM 1GM IVPB 100 ML IV SCH ×3 (02:06→17:51)
[2021-10-01 05:31] LABS: Potassium 4.2 mmol/L (3.5-5.1)
[2021-10-01 05:33] LABS: BUN/Creatinine Ratio 82.4
[2021-10-01] MEDS: ALBUTEROL SULF 2.5 MG/0.5ML(0.5%) NEB SOLN NEB PRN ×2 (05:49→22:07)
[2021-10-01] MEDS: BUDESONIDE (INHALATION) 0.5 MG/2 ML NEB NEB SCH ×2 (05:59→22:07)
[2021-10-01] MEDS: InsuLIN REG 1unit/0.01ml Soln (100units/ml) SC SCH ×3 (06:00→17:52)
[2021-10-01] MEDS: METOCLOPRAMIDE HCL 5MG/ml INJ 2ml VIAL IV SCH ×3 (06:51→22:19)
[2021-10-01] MEDS: LEVOTHYROXINE SODIUM 100 MCG TAB PO SCH (06:52)
[2021-10-01] MEDS: LEVOTHYROXINE SODIUM 50 MCG TAB PO SCH (06:53)
[2021-10-01] MEDS: ACCU-CHEK COMFORT CURVE STRIP VI SCH ×3 (06:55→17:51)
[2021-10-01] MEDS: DexAMETHasone SOD PHOS 4 MG/1ML SDV INJ IV SCH ×2 (09:57→22:18)
[2021-10-01] MEDS: CHOLECALCIFEROL (VITD3) 2,000 UNIT CAP/TAB PO SCH (09:58)
[2021-10-01] MEDS: FUROSEMIDE 20 MG/2 ML VIAL IV SCH (09:58)
[2021-10-01] MEDS: LACTULOSE 20Gm/30ML SOLN PO SCH ×2 (09:58→22:19)
[2021-10-01] MEDS: ASCORBIC ACID 1,000 MG TAB PO SCH (09:58)
[2021-10-01] MEDS: SODIUM CHLOR 0.9% PF (SALINE LOCK) 10ML VIAL/SYR IV SCH ×2 (09:58→22:19)
[2021-10-01] MEDS: FAMOTIDINE (10MG/ML) 2ML VL IV SCH (09:58)
[2021-10-01] MEDS: ZINC SULFATE 220mg CAP or TAB PO SCH (09:58)
[2021-10-01] MEDS: MIDAZOLAM DRIP 50 mg/50mL 50 ML IV SCH (12:38)
[2021-10-01] MEDS: PROPOFOL 100 ML IV SCH (16:30)
[2021-10-01] MEDS: NOREPINEPHRINE 8 MG/250ML KIT 250 ML IV SCH (16:30)
[2021-10-02] VITALS (90 sets, daily range): BP systolic 83–148; BP diastolic 35–72
[2021-10-02] MEDS: ACCU-CHEK COMFORT CURVE STRIP VI SCH ×5 (00:35→22:54)
[2021-10-02] MEDS: fentaNYL Drip 2500mCg/250mlNS 250 ML IV SCH ×2 (01:52→16:32)
[2021-10-02] MEDS: MEROPENEM 1GM IVPB 100 ML IV SCH ×3 (01:54→17:44)
[2021-10-02 05:02] LABS: BUN/Creatinine Ratio 79.4; Calcium 8.2 mg/dL (8.5-10.1); Potassium 4.7 mmol/L (3.5-5.1)
[2021-10-02] MEDS ORDERED: MEROPENEM 1GM IVPB 100 ML IV ONE (05:28)
[2021-10-02] MEDS: METOCLOPRAMIDE HCL 5MG/ml INJ 2ml VIAL IV SCH ×3 (06:18→22:00)
[2021-10-02] MEDS: InsuLIN REG 1unit/0.01ml Soln (100units/ml) SC SCH ×4 (06:20→17:45)
[2021-10-02] MEDS: LEVOTHYROXINE SODIUM 100 MCG TAB PO SCH (06:21)
[2021-10-02] MEDS: LEVOTHYROXINE SODIUM 50 MCG TAB PO SCH (06:22)
[2021-10-02] MEDS: INSULIN LANTUS (GLARGINE) 1 /0.01ml (100units/ml) SC SCH ×2 (06:23→22:00)
[2021-10-02 09:42] LABS: Basophils # (auto) 0 10 ^3/uL (0-0.2); Basophils % (auto) 0.1 % (0.0-2.0); Eosinophils # (auto) 0 10 ^3/uL (0-0.8); Hematocrit 39.4 % (36.0-46.0); Hemoglobin 12.7 g/dL (12.2-16.2); Lymphocytes # (auto) 0.5 10 ^3/uL (0.4-5.4); Lymphocytes % (auto) 4.2 % (10.0-50.0); Mean Corpuscular Hemoglobin 30.9 pg (28.0-32.0); Mean Corpuscular Hgb Conc. 32.3 g/dL (32.0-36.0); Mean Corpuscular Volume 95.6 fL (80.0-100.0); Monocytes # (auto) 0.4 10 ^3/uL (0-1.3); Monocytes % (auto) 3.9 % (0.0-12.0); Neutrophils # (auto) 10.1 10 ^3/uL (1.6-8.6); Neutrophils % (auto) 91.8 % (37.0-80.0); Nucleated Red Blood Cells % 0.3 %; Red Blood Cells 4.12 10^6/uL (4.0-5.20); White Blood Cell 11.1 10^3/uL (4.4-10.8)
[2021-10-02] MEDS: DexAMETHasone SOD PHOS 4 MG/1ML SDV INJ IV SCH ×2 (09:56→22:52)
[2021-10-02] MEDS: FUROSEMIDE 20 MG/2 ML VIAL IV SCH (09:57)
[2021-10-02] MEDS: LACTULOSE 20Gm/30ML SOLN PO SCH ×2 (09:58→22:00)
[2021-10-02] MEDS: FAMOTIDINE (10MG/ML) 2ML VL IV SCH (09:58)
[2021-10-02] MEDS: ZINC SULFATE 220mg CAP or TAB PO SCH (09:58)
[2021-10-02] MEDS: CHOLECALCIFEROL (VITD3) 2,000 UNIT CAP/TAB PO SCH (09:59)
[2021-10-02] MEDS: SODIUM CHLOR 0.9% PF (SALINE LOCK) 10ML VIAL/SYR IV SCH ×2 (09:59→22:53)
[2021-10-02] MEDS: ASCORBIC ACID 1,000 MG TAB PO SCH (09:59)
[2021-10-02] MEDS: NOREPINEPHRINE 8 MG/250ML KIT 250 ML IV SCH (10:00)
[2021-10-02] MEDS: MIDAZOLAM DRIP 50 mg/50mL 50 ML IV SCH ×2 (10:01→15:33)
[2021-10-02] MEDS: BUDESONIDE (INHALATION) 0.5 MG/2 ML NEB NEB SCH ×2 (14:15→22:04)
[2021-10-02] MEDS: PROPOFOL 100 ML IV SCH (16:30)
[2021-10-02] MEDS: ALBUTEROL SULF 2.5 MG/0.5ML(0.5%) NEB SOLN NEB PRN (22:04)
[2021-10-03] VITALS (96 sets, daily range): BP systolic 86–141; BP diastolic 36–70
[2021-10-03] MEDS: METOCLOPRAMIDE HCL 5MG/ml INJ 2ml VIAL IV SCH ×2 (00:36→22:02)
[2021-10-03] MEDS: MEROPENEM 1GM IVPB 100 ML IV SCH ×4 (02:23→22:00)
[2021-10-03 04:58] LABS: Basophils # (auto) 0 10 ^3/uL (0-0.2); Basophils % (auto) 0.2 % (0.0-2.0); Eosinophils # (auto) 0 10 ^3/uL (0-0.8); Hematocrit 37.7 % (36.0-46.0); Hemoglobin 12.5 g/dL (12.2-16.2); Lymphocytes # (auto) 0.3 10 ^3/uL (0.4-5.4); Lymphocytes % (auto) 4.4 % (10.0-50.0); Mean Corpuscular Hemoglobin 31.6 pg (28.0-32.0); Mean Corpuscular Hgb Conc. 33.2 g/dL (32.0-36.0); Mean Corpuscular Volume 95.4 fL (80.0-100.0); Monocytes # (auto) 0.2 10 ^3/uL (0-1.3); Monocytes % (auto) 2.9 % (0.0-12.0); Neutrophils % (auto) 92.5 % (37.0-80.0); Nucleated Red Blood Cells % 0.6 %; Red Blood Cells 3.95 10^6/uL (4.0-5.20); Red Cell Distribution Width 14.8 % (11.8-14.3); White Blood Cell 7.6 10^3/uL (4.4-10.8)
[2021-10-03] MEDS: InsuLIN REG 1unit/0.01ml Soln (100units/ml) SC SCH ×4 (05:15→22:45)
[2021-10-03] MEDS: ACCU-CHEK COMFORT CURVE STRIP VI SCH ×4 (05:15→22:46)
[2021-10-03 05:21] LABS: Potassium 4.7 mmol/L (3.5-5.1)
[2021-10-03 05:25] LABS: Calcium 7.9 mg/dL (8.5-10.1)
[2021-10-03 05:34] LABS: Bilirubin, Total 0.8 mg/dL (0.2-1.0); Total Protein 4.5 g/dL (6.4-8.2)
[2021-10-03] MEDS: ALBUTEROL SULF 2.5 MG/0.5ML(0.5%) NEB SOLN NEB PRN ×2 (05:46→22:40)
[2021-10-03] MEDS: BUDESONIDE (INHALATION) 0.5 MG/2 ML NEB NEB SCH ×2 (05:46→22:40)
[2021-10-03] MEDS: LEVOTHYROXINE SODIUM 100 MCG TAB PO SCH (06:39)
[2021-10-03] MEDS: INSULIN LANTUS (GLARGINE) 1 /0.01ml (100units/ml) SC SCH ×2 (06:40→22:03)
[2021-10-03] MEDS: LEVOTHYROXINE SODIUM 50 MCG TAB PO SCH (06:40)
[2021-10-03] MEDS: LACTULOSE 20Gm/30ML SOLN PO SCH ×2 (10:00→22:02)
[2021-10-03] MEDS: SODIUM CHLOR 0.9% PF (SALINE LOCK) 10ML VIAL/SYR IV SCH ×2 (10:00→22:02)
[2021-10-03] MEDS: CHOLECALCIFEROL (VITD3) 2,000 UNIT CAP/TAB PO SCH (10:00)
[2021-10-03] MEDS: FAMOTIDINE (10MG/ML) 2ML VL IV SCH (10:00)
[2021-10-03] MEDS: ASCORBIC ACID 1,000 MG TAB PO SCH (10:00)
[2021-10-03] MEDS: ZINC SULFATE 220mg CAP or TAB PO SCH (10:00)
[2021-10-03] MEDS: FUROSEMIDE 20 MG/2 ML VIAL IV SCH (10:00)
[2021-10-03] MEDS: DexAMETHasone SOD PHOS 4 MG/1ML SDV INJ IV SCH ×2 (10:00→22:00)
[2021-10-03] MEDS: NOREPINEPHRINE 8 MG/250ML KIT 250 ML IV SCH (15:12)
[2021-10-03] MEDS: PROPOFOL 100 ML IV SCH (15:12)
[2021-10-03] MEDS: MIDAZOLAM DRIP 50 mg/50mL 50 ML IV SCH (17:23)
[2021-10-04] VITALS (103 sets, daily range): BP systolic 89–151; BP diastolic 43–69
[2021-10-04 04:55] LABS: Basophils # (auto) 0 10 ^3/uL (0-0.2); Eosinophils # (auto) 0 10 ^3/uL (0-0.8); Eosinophils % (auto) 0.1 % (0.0-7.0); Hematocrit 39.6 % (36.0-46.0); Hemoglobin 13.4 g/dL (12.2-16.2); Lymphocytes # (auto) 0.4 10 ^3/uL (0.4-5.4); Lymphocytes % (auto) 3.3 % (10.0-50.0); Mean Corpuscular Hemoglobin 32.2 pg (28.0-32.0); Mean Corpuscular Hgb Conc. 33.7 g/dL (32.0-36.0); Mean Corpuscular Volume 95.3 fL (80.0-100.0); Monocytes # (auto) 0.3 10 ^3/uL (0-1.3); Monocytes % (auto) 2.5 % (0.0-12.0); Neutrophils # (auto) 10.2 10 ^3/uL (1.6-8.6); Neutrophils % (auto) 94.1 % (37.0-80.0); Nucleated Red Blood Cells % 0.2 %; Red Blood Cells 4.15 10^6/uL (4.0-5.20); Red Cell Distribution Width 14.8 % (11.8-14.3); White Blood Cell 10.8 10^3/uL (4.4-10.8)
[2021-10-04 05:08] LABS: Calcium 7.9 mg/dL (8.5-10.1); Potassium 4.8 mmol/L (3.5-5.1)
[2021-10-04] MEDS: METOCLOPRAMIDE HCL 5MG/ml INJ 2ml VIAL IV SCH ×3 (05:46→22:00)
[2021-10-04] MEDS: ACCU-CHEK COMFORT CURVE STRIP VI SCH ×3 (05:52→17:10)
[2021-10-04] MEDS: InsuLIN REG 1unit/0.01ml Soln (100units/ml) SC SCH ×3 (05:52→17:10)
[2021-10-04] MEDS: LEVOTHYROXINE SODIUM 100 MCG TAB PO SCH (05:59)
[2021-10-04] MEDS: LEVOTHYROXINE SODIUM 50 MCG TAB PO SCH (06:00)
[2021-10-04] MEDS: INSULIN LANTUS (GLARGINE) 1 /0.01ml (100units/ml) SC SCH ×2 (06:04→22:00)
[2021-10-04] MEDS: BUDESONIDE (INHALATION) 0.5 MG/2 ML NEB NEB SCH ×2 (06:05→18:25)
[2021-10-04] MEDS: ALBUTEROL SULF 2.5 MG/0.5ML(0.5%) NEB SOLN NEB PRN ×2 (06:05→18:24)
[2021-10-04] MEDS: FUROSEMIDE 20 MG/2 ML VIAL IV SCH (08:55)
[2021-10-04] MEDS: MEROPENEM 1GM IVPB 100 ML IV SCH ×2 (08:55→17:18)
[2021-10-04] MEDS: FAMOTIDINE (10MG/ML) 2ML VL IV SCH (08:55)
[2021-10-04] MEDS: DexAMETHasone SOD PHOS 4 MG/1ML SDV INJ IV SCH ×2 (08:55→22:37)
[2021-10-04] MEDS: LACTULOSE 20Gm/30ML SOLN PO SCH ×2 (08:56→22:00)
[2021-10-04] MEDS: ZINC SULFATE 220mg CAP or TAB PO SCH (08:56)
[2021-10-04] MEDS: SODIUM CHLOR 0.9% PF (SALINE LOCK) 10ML VIAL/SYR IV SCH ×2 (08:56→22:37)
[2021-10-04] MEDS: CHOLECALCIFEROL (VITD3) 2,000 UNIT CAP/TAB PO SCH (08:56)
[2021-10-04] MEDS: ASCORBIC ACID 1,000 MG TAB PO SCH (08:56)
[2021-10-04] MEDS: MIDAZOLAM DRIP 50 mg/50mL 50 ML IV SCH (11:08)
[2021-10-04] MEDS ORDERED: FUROSEMIDE 20 MG/2 ML VIAL IV ONE (16:00)
[2021-10-04] MEDS: NOREPINEPHRINE 8 MG/250ML KIT 250 ML IV SCH (16:30)
[2021-10-04] MEDS: fentaNYL Drip 2500mCg/250mlNS 250 ML IV SCH ×2 (16:30→17:41)
[2021-10-04] MEDS: PROPOFOL 100 ML IV SCH (16:30)
[2021-10-05] VITALS (101 sets, daily range): BP systolic 88–192; BP diastolic 28–88
[2021-10-05] MEDS: MEROPENEM 1GM IVPB 100 ML IV SCH ×2 (02:05→09:44)
[2021-10-05] MEDS: ACCU-CHEK COMFORT CURVE STRIP VI SCH ×5 (02:06→23:59)
[2021-10-05 04:06] LABS: Basophils # (auto) 0 10 ^3/uL (0-0.2); Eosinophils # (auto) 0.1 10 ^3/uL (0-0.8); Eosinophils % (auto) 0.6 % (0.0-7.0); Hematocrit 38.3 % (36.0-46.0); Hemoglobin 12.7 g/dL (12.2-16.2); Lymphocytes # (auto) 0.4 10 ^3/uL (0.4-5.4); Lymphocytes % (auto) 4.7 % (10.0-50.0); Mean Corpuscular Hemoglobin 31.7 pg (28.0-32.0); Mean Corpuscular Hgb Conc. 33.2 g/dL (32.0-36.0); Mean Corpuscular Volume 95.5 fL (80.0-100.0); Monocytes # (auto) 0.2 10 ^3/uL (0-1.3); Monocytes % (auto) 2.3 % (0.0-12.0); Neutrophils # (auto) 7.6 10 ^3/uL (1.6-8.6); Neutrophils % (auto) 92.4 % (37.0-80.0); Nucleated Red Blood Cells % 0.3 %; Red Blood Cells 4.01 10^6/uL (4.0-5.20); Red Cell Distribution Width 15.1 % (11.8-14.3); White Blood Cell 8.3 10^3/uL (4.4-10.8)
[2021-10-05 04:24] LABS: BUN/Creatinine Ratio 78.6; Calcium 7.3 mg/dL (8.5-10.1)
[2021-10-05] MEDS: fentaNYL Drip 2500mCg/250mlNS 250 ML IV SCH ×2 (05:41→18:14)
[2021-10-05] MEDS: METOCLOPRAMIDE HCL 5MG/ml INJ 2ml VIAL IV SCH ×3 (05:42→22:37)
[2021-10-05] MEDS: MIDAZOLAM DRIP 50 mg/50mL 50 ML IV SCH ×2 (05:42→17:25)
[2021-10-05] MEDS: InsuLIN REG 1unit/0.01ml Soln (100units/ml) SC SCH ×4 (05:42→18:00)
[2021-10-05] MEDS: LEVOTHYROXINE SODIUM 50 MCG TAB PO SCH (06:41)
[2021-10-05] MEDS: INSULIN LANTUS (GLARGINE) 1 /0.01ml (100units/ml) SC SCH ×2 (06:42→22:00)
[2021-10-05] MEDS: LEVOTHYROXINE SODIUM 100 MCG TAB PO SCH (06:42)
[2021-10-05] MEDS: ALBUTEROL SULF 2.5 MG/0.5ML(0.5%) NEB SOLN NEB PRN ×2 (07:23→20:03)
[2021-10-05] MEDS: BUDESONIDE (INHALATION) 0.5 MG/2 ML NEB NEB SCH ×2 (07:23→20:03)
[2021-10-05] MEDS: DexAMETHasone SOD PHOS 4 MG/1ML SDV INJ IV SCH ×2 (09:42→22:28)
[2021-10-05] MEDS: FUROSEMIDE 20 MG/2 ML VIAL IV SCH (09:43)
[2021-10-05] MEDS: FAMOTIDINE (10MG/ML) 2ML VL IV SCH (09:44)
[2021-10-05] MEDS: SODIUM CHLOR 0.9% PF (SALINE LOCK) 10ML VIAL/SYR IV SCH ×2 (09:44→22:38)
[2021-10-05] MEDS: ASCORBIC ACID 1,000 MG TAB PO SCH (09:45)
[2021-10-05] MEDS: ZINC SULFATE 220mg CAP or TAB PO SCH (09:45)
[2021-10-05] MEDS: LACTULOSE 20Gm/30ML SOLN PO SCH ×2 (09:45→22:00)
[2021-10-05] MEDS: CHOLECALCIFEROL (VITD3) 2,000 UNIT CAP/TAB PO SCH (11:57)
[2021-10-05] MEDS: NOREPINEPHRINE 8 MG/250ML KIT 250 ML IV SCH (16:30)
[2021-10-05] MEDS: PROPOFOL 100 ML IV SCH (16:30)
[2021-10-06] VITALS (101 sets, daily range): BP systolic 89–129; BP diastolic 36–77
[2021-10-06 04:39] LABS: Basophils # (auto) 0 10 ^3/uL (0-0.2); Basophils % (auto) 0.2 % (0.0-2.0); Eosinophils # (auto) 0 10 ^3/uL (0-0.8); Eosinophils % (auto) 0.1 % (0.0-7.0); Hematocrit 36.2 % (36.0-46.0); Hemoglobin 12.2 g/dL (12.2-16.2); Lymphocytes # (auto) 0.2 10 ^3/uL (0.4-5.4); Lymphocytes % (auto) 2.9 % (10.0-50.0); Mean Corpuscular Hemoglobin 32.7 pg (28.0-32.0); Mean Corpuscular Hgb Conc. 33.8 g/dL (32.0-36.0); Mean Corpuscular Volume 96.7 fL (80.0-100.0); Monocytes # (auto) 0.2 10 ^3/uL (0-1.3); Monocytes % (auto) 2.4 % (0.0-12.0); Neutrophils # (auto) 6.8 10 ^3/uL (1.6-8.6); Neutrophils % (auto) 94.4 % (37.0-80.0); Nucleated Red Blood Cells % 0.1 %; Red Blood Cells 3.74 10^6/uL (4.0-5.20); White Blood Cell 7.2 10^3/uL (4.4-10.8)
[2021-10-06] MEDS: METOCLOPRAMIDE HCL 5MG/ml INJ 2ml VIAL IV SCH ×3 (06:00→22:00)
[2021-10-06] MEDS: InsuLIN REG 1unit/0.01ml Soln (100units/ml) SC SCH ×4 (06:00→18:00)
[2021-10-06] MEDS: fentaNYL Drip 2500mCg/250mlNS 250 ML IV SCH (06:04)
[2021-10-06] MEDS: MIDAZOLAM DRIP 50 mg/50mL 50 ML IV SCH ×4 (06:04→23:30)
[2021-10-06] MEDS: ACCU-CHEK COMFORT CURVE STRIP VI SCH ×3 (06:11→18:00)
[2021-10-06] MEDS: LEVOTHYROXINE SODIUM 50 MCG TAB PO SCH (06:12)
[2021-10-06] MEDS: INSULIN LANTUS (GLARGINE) 1 /0.01ml (100units/ml) SC SCH (06:12)
[2021-10-06] MEDS: LEVOTHYROXINE SODIUM 100 MCG TAB PO SCH (06:12)
[2021-10-06] MEDS: NOREPINEPHRINE 8 MG/250ML KIT 250 ML IV SCH (06:25)
[2021-10-06] MEDS: BUDESONIDE (INHALATION) 0.5 MG/2 ML NEB NEB SCH ×2 (06:29→18:34)
[2021-10-06] MEDS: ALBUTEROL SULF 2.5 MG/0.5ML(0.5%) NEB SOLN NEB PRN ×2 (06:29→18:34)
[2021-10-06] MEDS: DexAMETHasone SOD PHOS 4 MG/1ML SDV INJ IV SCH (09:55)
[2021-10-06] MEDS: FAMOTIDINE (10MG/ML) 2ML VL IV SCH (09:55)
[2021-10-06] MEDS: levoFLOXacin 500MG 100 ML IV SCH (09:55)
[2021-10-06] MEDS: ASCORBIC ACID 1,000 MG TAB PO SCH (09:55)
[2021-10-06] MEDS: CHOLECALCIFEROL (VITD3) 2,000 UNIT CAP/TAB PO SCH (09:56)
[2021-10-06] MEDS: SODIUM CHLOR 0.9% PF (SALINE LOCK) 10ML VIAL/SYR IV SCH ×2 (09:56→22:00)
[2021-10-06] MEDS: LACTULOSE 20Gm/30ML SOLN PO SCH ×2 (09:56→22:00)
[2021-10-06] MEDS: ZINC SULFATE 220mg CAP or TAB PO SCH (09:57)
[2021-10-06] MEDS: FUROSEMIDE 20 MG/2 ML VIAL IV SCH (09:58)
[2021-10-06] MEDS: PROPOFOL 100 ML IV SCH (15:59)
[2021-10-07] VITALS (95 sets, daily range): BP systolic 82–171; BP diastolic 37–72
[2021-10-07] MEDS: InsuLIN REG 1unit/0.01ml Soln (100units/ml) SC SCH ×4 (00:23→17:46)
[2021-10-07] MEDS: MIDAZOLAM DRIP 50 mg/50mL 50 ML IV SCH ×7 (02:03→22:50)
[2021-10-07 04:14] LABS: Basophils # (auto) 0 10 ^3/uL (0-0.2); Basophils % (auto) 0.6 % (0.0-2.0); Eosinophils # (auto) 0 10 ^3/uL (0-0.8); Eosinophils % (auto) 0.1 % (0.0-7.0); Hematocrit 37.7 % (36.0-46.0); Hemoglobin 12.7 g/dL (12.2-16.2); Lymphocytes # (auto) 0.5 10 ^3/uL (0.4-5.4); Lymphocytes % (auto) 7.2 % (10.0-50.0); Mean Corpuscular Hgb Conc. 33.7 g/dL (32.0-36.0); Mean Corpuscular Volume 95.1 fL (80.0-100.0); Monocytes # (auto) 0.3 10 ^3/uL (0-1.3); Monocytes % (auto) 4.5 % (0.0-12.0); Neutrophils # (auto) 6.4 10 ^3/uL (1.6-8.6); Neutrophils % (auto) 87.6 % (37.0-80.0); Nucleated Red Blood Cells % 0.1 %; Red Blood Cells 3.97 10^6/uL (4.0-5.20); Red Cell Distribution Width 15.3 % (11.8-14.3); White Blood Cell 7.3 10^3/uL (4.4-10.8)
[2021-10-07 04:34] LABS: Calcium 8.1 mg/dL (8.5-10.1); Potassium 4.2 mmol/L (3.5-5.1)
[2021-10-07] MEDS: METOCLOPRAMIDE HCL 5MG/ml INJ 2ml VIAL IV SCH ×3 (05:54→22:17)
[2021-10-07] MEDS: ACCU-CHEK COMFORT CURVE STRIP VI SCH ×4 (06:09→17:47)
[2021-10-07] MEDS: fentaNYL Drip 2500mCg/250mlNS 250 ML IV SCH ×2 (06:39→19:00)
[2021-10-07] MEDS: LEVOTHYROXINE SODIUM 50 MCG TAB PO SCH (06:53)
[2021-10-07] MEDS: LEVOTHYROXINE SODIUM 100 MCG TAB PO SCH (06:53)
[2021-10-07] MEDS: BUDESONIDE (INHALATION) 0.5 MG/2 ML NEB NEB SCH ×2 (06:57→19:00)
[2021-10-07] MEDS: SODIUM CHLOR 0.9% PF (SALINE LOCK) 10ML VIAL/SYR IV SCH ×2 (10:00→22:18)
[2021-10-07] MEDS: FAMOTIDINE (10MG/ML) 2ML VL IV SCH (10:00)
[2021-10-07] MEDS: ASCORBIC ACID 1,000 MG TAB PO SCH (10:00)
[2021-10-07] MEDS: ZINC SULFATE 220mg CAP or TAB PO SCH (10:00)
[2021-10-07] MEDS: CHOLECALCIFEROL (VITD3) 2,000 UNIT CAP/TAB PO SCH (10:00)
[2021-10-07] MEDS: DexAMETHasone SOD PHOS 10MG/1ML VIAL INJ IV SCH (10:00)
[2021-10-07] MEDS: LACTULOSE 20Gm/30ML SOLN PO SCH ×2 (10:00→22:00)
[2021-10-07] MEDS: FUROSEMIDE 20 MG/2 ML VIAL IV SCH (10:00)
[2021-10-07] MEDS: levoFLOXacin 500MG 100 ML IV SCH (10:00)
[2021-10-07] MEDS: PROPOFOL 100 ML IV SCH ×2 (10:50→16:41)
[2021-10-07] MEDS: NOREPINEPHRINE 8 MG/250ML KIT 250 ML IV SCH ×2 (16:30→18:38)
[2021-10-07] MEDS: ALBUTEROL SULF 2.5 MG/0.5ML(0.5%) NEB SOLN NEB PRN (19:00)
[2021-10-08] VITALS (99 sets, daily range): BP systolic 86–139; BP diastolic 45–69
[2021-10-08] MEDS: PROPOFOL 100 ML IV SCH ×7 (02:50→21:50)
[2021-10-08] MEDS: METOCLOPRAMIDE HCL 5MG/ml INJ 2ml VIAL IV SCH ×3 (06:35→22:46)
[2021-10-08] MEDS: LEVOTHYROXINE SODIUM 100 MCG TAB PO SCH (06:36)
[2021-10-08] MEDS: LEVOTHYROXINE SODIUM 50 MCG TAB PO SCH (06:36)
[2021-10-08] MEDS: ACCU-CHEK COMFORT CURVE STRIP VI SCH ×3 (06:37→17:58)
[2021-10-08] MEDS: InsuLIN REG 1unit/0.01ml Soln (100units/ml) SC SCH ×3 (06:38→17:59)
[2021-10-08] MEDS: ALBUTEROL SULF 2.5 MG/0.5ML(0.5%) NEB SOLN NEB PRN ×2 (07:26→21:58)
[2021-10-08] MEDS: BUDESONIDE (INHALATION) 0.5 MG/2 ML NEB NEB SCH ×2 (07:26→21:58)
[2021-10-08] MEDS: MIDAZOLAM DRIP 50 mg/50mL 50 ML IV SCH ×5 (08:38→22:50)
[2021-10-08] MEDS: ZINC SULFATE 220mg CAP or TAB PO SCH (10:00)
[2021-10-08] MEDS: FUROSEMIDE 20 MG/2 ML VIAL IV SCH (10:00)
[2021-10-08] MEDS: levoFLOXacin 500MG 100 ML IV SCH (10:00)
[2021-10-08] MEDS: SODIUM CHLOR 0.9% PF (SALINE LOCK) 10ML VIAL/SYR IV SCH ×2 (10:00→22:46)
[2021-10-08] MEDS: DexAMETHasone SOD PHOS 10MG/1ML VIAL INJ IV SCH (10:00)
[2021-10-08] MEDS: FAMOTIDINE (10MG/ML) 2ML VL IV SCH (10:00)
[2021-10-08] MEDS: LACTULOSE 20Gm/30ML SOLN PO SCH ×2 (10:00→22:00)
[2021-10-08] MEDS: CHOLECALCIFEROL (VITD3) 2,000 UNIT CAP/TAB PO SCH (10:00)
[2021-10-08] MEDS: ASCORBIC ACID 1,000 MG TAB PO SCH (10:00)
[2021-10-08] MEDS: NOREPINEPHRINE 8 MG/250ML KIT 250 ML IV SCH (13:42)
[2021-10-08] MEDS: fentaNYL Drip 2500mCg/250mlNS 250 ML IV SCH (17:59)
[2021-10-09] VITALS (98 sets, daily range): BP systolic 90–132; BP diastolic 57–80
[2021-10-09] MEDS: PROPOFOL 100 ML IV SCH ×7 (00:50→23:50)
[2021-10-09] MEDS: InsuLIN REG 1unit/0.01ml Soln (100units/ml) SC SCH ×4 (01:12→18:24)
[2021-10-09] MEDS: ACCU-CHEK COMFORT CURVE STRIP VI SCH ×4 (01:13→18:23)
[2021-10-09] MEDS: MIDAZOLAM DRIP 50 mg/50mL 50 ML IV SCH ×8 (01:50→22:50)
[2021-10-09] MEDS: NOREPINEPHRINE 8 MG/250ML KIT 250 ML IV SCH ×2 (02:50→17:00)
[2021-10-09 04:12] LABS: Hematocrit 38.7 % (36.0-46.0); Hemoglobin 12.7 g/dL (12.2-16.2); Mean Corpuscular Hemoglobin 31.7 pg (28.0-32.0); Mean Corpuscular Hgb Conc. 32.9 g/dL (32.0-36.0); Mean Corpuscular Volume 96.3 fL (80.0-100.0); Red Blood Cells 4.02 10^6/uL (4.0-5.20); Red Cell Distribution Width 15.5 % (11.8-14.3); White Blood Cell 9.4 10^3/uL (4.4-10.8)
[2021-10-09 04:42] LABS: Calcium 7.8 mg/dL (8.5-10.1)
[2021-10-09 04:43] LABS: Basophils % (manual) 0 (0.0-2.0); Blast Cells 0; Eosinophils % (manual) 0 (0-7); Metamyelocytes % 0; Myelocytes % 0; Promyelocytes % 0; Reactive Lymphocytes 0
[2021-10-09 04:46] LABS: BUN/Creatinine Ratio 63.3
[2021-10-09] MEDS: fentaNYL Drip 2500mCg/250mlNS 250 ML IV SCH ×3 (04:50→23:50)
[2021-10-09] MEDS: LEVOTHYROXINE SODIUM 50 MCG TAB PO SCH (06:17)
[2021-10-09] MEDS: METOCLOPRAMIDE HCL 5MG/ml INJ 2ml VIAL IV SCH ×3 (06:17→22:20)
[2021-10-09] MEDS: LEVOTHYROXINE SODIUM 100 MCG TAB PO SCH (06:17)
[2021-10-09 06:35] LABS: Band Neutrophils % (manual) 2; Lymphocytes % (manual) 5 (10.0-50.0); Monocytes % (manual) 4 (0-12)
[2021-10-09] MEDS: FUROSEMIDE 20 MG/2 ML VIAL IV SCH (09:24)
[2021-10-09] MEDS: levoFLOXacin 500MG 100 ML IV SCH (09:24)
[2021-10-09] MEDS: DexAMETHasone SOD PHOS 10MG/1ML VIAL INJ IV SCH (09:24)
[2021-10-09] MEDS: CHOLECALCIFEROL (VITD3) 2,000 UNIT CAP/TAB PO SCH (09:25)
[2021-10-09] MEDS: ASCORBIC ACID 1,000 MG TAB PO SCH (09:25)
[2021-10-09] MEDS: SODIUM CHLOR 0.9% PF (SALINE LOCK) 10ML VIAL/SYR IV SCH ×2 (09:25→22:20)
[2021-10-09] MEDS: ZINC SULFATE 220mg CAP or TAB PO SCH (09:25)
[2021-10-09] MEDS: FAMOTIDINE (10MG/ML) 2ML VL IV SCH (09:25)
[2021-10-09] MEDS: LACTULOSE 20Gm/30ML SOLN PO SCH ×2 (09:25→22:00)
[2021-10-09 13:58] LABS: Urine Bacteria FEW /hpf (None Seen); Urine Blood 3+ /uL (Negative); Urine Budding Yeast FEW /hpf (None Seen); Urine Hyaline Cast FEW /lpf (0 - 2); Urine Specific Gravity 1.011 (1.001-1.035); Urine WBC 25 /hpf (0 - 5)
[2021-10-09] MEDS: BUDESONIDE (INHALATION) 0.5 MG/2 ML NEB NEB SCH (22:17)
[2021-10-10] VITALS (101 sets, daily range): BP systolic 95–147; BP diastolic 44–75
[2021-10-10] MEDS: ACCU-CHEK COMFORT CURVE STRIP VI SCH ×5 (00:19→23:45)
[2021-10-10] MEDS: InsuLIN REG 1unit/0.01ml Soln (100units/ml) SC SCH ×4 (00:19→17:37)
[2021-10-10] MEDS: MIDAZOLAM DRIP 50 mg/50mL 50 ML IV SCH ×6 (00:50→22:51)
[2021-10-10] MEDS: PROPOFOL 100 ML IV SCH ×7 (01:50→23:44)
[2021-10-10 04:12] LABS: Hemoglobin 12.7 g/dL (12.2-16.2); Mean Corpuscular Hemoglobin 31.9 pg (28.0-32.0); Mean Corpuscular Hgb Conc. 32.5 g/dL (32.0-36.0); Mean Corpuscular Volume 98.2 fL (80.0-100.0); Red Blood Cells 3.97 10^6/uL (4.0-5.20); Red Cell Distribution Width 15.8 % (11.8-14.3); White Blood Cell 8.2 10^3/uL (4.4-10.8)
[2021-10-10 04:38] LABS: Basophils % (manual) 0 (0.0-2.0); Blast Cells 0; Eosinophils % (manual) 0 (0-7); Metamyelocytes % 0; Promyelocytes % 0; Reactive Lymphocytes 0
[2021-10-10 04:40] LABS: BUN/Creatinine Ratio 69.2; Potassium 4.1 mmol/L (3.5-5.1)
[2021-10-10] MEDS: METOCLOPRAMIDE HCL 5MG/ml INJ 2ml VIAL IV SCH ×3 (06:35→22:49)
[2021-10-10] MEDS: LEVOTHYROXINE SODIUM 50 MCG TAB PO SCH (06:36)
[2021-10-10] MEDS: LEVOTHYROXINE SODIUM 100 MCG TAB PO SCH (06:36)
[2021-10-10 07:22] LABS: Band Neutrophils % (manual) 17; Lymphocytes % (manual) 7 (10.0-50.0); Monocytes % (manual) 4 (0-12); Myelocytes % 1
[2021-10-10] MEDS: DexAMETHasone SOD PHOS 10MG/1ML VIAL INJ IV SCH (08:52)
[2021-10-10] MEDS: FUROSEMIDE 20 MG/2 ML VIAL IV SCH (08:52)
[2021-10-10] MEDS: levoFLOXacin 500MG 100 ML IV SCH (08:52)
[2021-10-10] MEDS: ZINC SULFATE 220mg CAP or TAB PO SCH (08:53)
[2021-10-10] MEDS: FAMOTIDINE (10MG/ML) 2ML VL IV SCH (08:53)
[2021-10-10] MEDS: CHOLECALCIFEROL (VITD3) 2,000 UNIT CAP/TAB PO SCH (08:53)
[2021-10-10] MEDS: SODIUM CHLOR 0.9% PF (SALINE LOCK) 10ML VIAL/SYR IV SCH ×2 (08:53→22:50)
[2021-10-10] MEDS: LACTULOSE 20Gm/30ML SOLN PO SCH ×2 (08:53→22:00)
[2021-10-10] MEDS: ASCORBIC ACID 1,000 MG TAB PO SCH (08:53)
[2021-10-10] MEDS: BUDESONIDE (INHALATION) 0.5 MG/2 ML NEB NEB SCH ×2 (10:47→22:18)
[2021-10-10] MEDS: ALBUTEROL SULF 2.5 MG/0.5ML(0.5%) NEB SOLN NEB PRN (10:47)
[2021-10-10] MEDS: fentaNYL Drip 2500mCg/250mlNS 250 ML IV SCH (18:39)
[2021-10-10] MEDS ORDERED: ROCURONIUM BROMIDE 1,000 MG in D5W 5% 150 ML IV SCH (21:45)
[2021-10-10] MEDS ORDERED: ATRACURIUM BESYLATE 1,000 MG in D5W 5% 150 ML IV SCH (21:45)
[2021-10-10] MEDS: NOREPINEPHRINE 8 MG/250ML KIT 250 ML IV SCH (22:50)
[2021-10-11] VITALS (95 sets, daily range): BP systolic 79–147; BP diastolic 44–97
[2021-10-11] MEDS: InsuLIN REG 1unit/0.01ml Soln (100units/ml) SC SCH ×5 (00:21→23:52)
[2021-10-11] MEDS: MIDAZOLAM DRIP 50 mg/50mL 50 ML IV SCH ×3 (01:58→11:00)
[2021-10-11] MEDS: fentaNYL Drip 2500mCg/250mlNS 250 ML IV SCH ×3 (01:58→20:42)
[2021-10-11] MEDS: PROPOFOL 100 ML IV SCH ×5 (03:03→19:34)
[2021-10-11 04:14] LABS: Hemoglobin 11.6 g/dL (12.2-16.2)
[2021-10-11 04:35] LABS: Hematocrit 32.5 % (36.0-46.0); Mean Corpuscular Hemoglobin 35.5 pg (28.0-32.0); Mean Corpuscular Hgb Conc. 35.7 g/dL (32.0-36.0); Mean Corpuscular Volume 99.3 fL (80.0-100.0); Red Blood Cells 3.27 10^6/uL (4.0-5.20); White Blood Cell 5.9 10^3/uL (4.4-10.8)
[2021-10-11 04:37] LABS: Basophils % (manual) 0 (0.0-2.0); Blast Cells 0; Eosinophils % (manual) 0 (0-7); Promyelocytes % 0; Reactive Lymphocytes 0
[2021-10-11 05:47] LABS: Band Neutrophils % (manual) 19; Lymphocytes % (manual) 6 (10.0-50.0); Metamyelocytes % 2; Monocytes % (manual) 5 (0-12); Myelocytes % 7
[2021-10-11] MEDS: ALBUTEROL SULF 2.5 MG/0.5ML(0.5%) NEB SOLN NEB PRN ×2 (06:05→22:26)
[2021-10-11] MEDS: BUDESONIDE (INHALATION) 0.5 MG/2 ML NEB NEB SCH ×2 (06:05→22:26)
[2021-10-11] MEDS: METOCLOPRAMIDE HCL 5MG/ml INJ 2ml VIAL IV SCH ×3 (06:17→21:46)
[2021-10-11] MEDS: ACCU-CHEK COMFORT CURVE STRIP VI SCH ×4 (06:17→23:52)
[2021-10-11 06:28] LABS: Albumin 2.1 g/dL (3.4-5.0); Calcium 8.2 mg/dL (8.5-10.1); Potassium 4.8 mmol/L (3.5-5.1)
[2021-10-11 06:32] LABS: BUN/Creatinine Ratio 84.2; Bilirubin, Total 0.4 mg/dL (0.2-1.0); Total Protein 4.7 g/dL (6.4-8.2)
[2021-10-11] MEDS: LEVOTHYROXINE SODIUM 50 MCG TAB PO SCH (06:57)
[2021-10-11] MEDS: LEVOTHYROXINE SODIUM 100 MCG TAB PO SCH (06:57)
[2021-10-11] MEDS: FAMOTIDINE (10MG/ML) 2ML VL IV SCH (08:45)
[2021-10-11] MEDS: DexAMETHasone SOD PHOS 10MG/1ML VIAL INJ IV SCH (08:45)
[2021-10-11] MEDS: ASCORBIC ACID 1,000 MG TAB PO SCH (08:46)
[2021-10-11] MEDS: CHOLECALCIFEROL (VITD3) 2,000 UNIT CAP/TAB PO SCH (08:46)
[2021-10-11] MEDS: LACTULOSE 20Gm/30ML SOLN PO SCH ×2 (08:46→21:47)
[2021-10-11] MEDS: levoFLOXacin 500MG 100 ML IV SCH (08:47)
[2021-10-11] MEDS: SODIUM CHLOR 0.9% PF (SALINE LOCK) 10ML VIAL/SYR IV SCH ×2 (08:47→21:46)
[2021-10-11] MEDS: ZINC SULFATE 220mg CAP or TAB PO SCH (08:48)
[2021-10-11] MEDS: FUROSEMIDE 20 MG/2 ML VIAL IV SCH (10:54)
[2021-10-11] MEDS: Jevity 1.2 Cal/Fiber 1 Liter GT SCH (12:28)
[2021-10-12] VITALS (95 sets, daily range): BP systolic 81–140; BP diastolic 36–67
[2021-10-12] MEDS: MIDAZOLAM DRIP 50 mg/50mL 50 ML IV SCH ×4 (03:51→21:51)
[2021-10-12 04:23] LABS: Hematocrit 37.9 % (36.0-46.0); Hemoglobin 12.6 g/dL (12.2-16.2); Mean Corpuscular Hgb Conc. 33.2 g/dL (32.0-36.0); Mean Corpuscular Volume 96.5 fL (80.0-100.0); Red Blood Cells 3.93 10^6/uL (4.0-5.20); Red Cell Distribution Width 15.4 % (11.8-14.3); White Blood Cell 8.9 10^3/uL (4.4-10.8)
[2021-10-12 04:27] LABS: Basophils % (manual) 0 (0.0-2.0); Blast Cells 0; Eosinophils % (manual) 0 (0-7); Metamyelocytes % 0; Myelocytes % 0; Promyelocytes % 0; Reactive Lymphocytes 0
[2021-10-12 04:42] LABS: BUN/Creatinine Ratio 111.1; Calcium 8.4 mg/dL (8.5-10.1); Potassium 4.5 mmol/L (3.5-5.1)
[2021-10-12] MEDS: InsuLIN REG 1unit/0.01ml Soln (100units/ml) SC SCH ×4 (06:00→23:53)
[2021-10-12 06:07] LABS: Band Neutrophils % (manual) 17; Lymphocytes % (manual) 9 (10.0-50.0); Monocytes % (manual) 4 (0-12)
[2021-10-12] MEDS: BUDESONIDE (INHALATION) 0.5 MG/2 ML NEB NEB SCH ×2 (06:09→18:51)
[2021-10-12] MEDS: METOCLOPRAMIDE HCL 5MG/ml INJ 2ml VIAL IV SCH ×3 (06:19→21:52)
[2021-10-12] MEDS: ACCU-CHEK COMFORT CURVE STRIP VI SCH ×4 (06:20→23:53)
[2021-10-12] MEDS: NOREPINEPHRINE 8 MG/250ML KIT 250 ML IV SCH ×2 (06:58→11:19)
[2021-10-12] MEDS: PROPOFOL 100 ML IV SCH ×3 (08:33→12:59)
[2021-10-12] MEDS: levoFLOXacin 500MG 100 ML IV SCH (08:33)
[2021-10-12] MEDS: FAMOTIDINE (10MG/ML) 2ML VL IV SCH (08:35)
[2021-10-12] MEDS: DexAMETHasone SOD PHOS 10MG/1ML VIAL INJ IV SCH (08:35)
[2021-10-12] MEDS: LEVOTHYROXINE SODIUM 100 MCG TAB PO SCH (08:35)
[2021-10-12] MEDS: ASCORBIC ACID 1,000 MG TAB PO SCH (08:35)
[2021-10-12] MEDS: ZINC SULFATE 220mg CAP or TAB PO SCH (08:35)
[2021-10-12] MEDS: CHOLECALCIFEROL (VITD3) 2,000 UNIT CAP/TAB PO SCH (08:36)
[2021-10-12] MEDS: LACTULOSE 20Gm/30ML SOLN PO SCH ×2 (08:37→21:54)
[2021-10-12] MEDS: SODIUM CHLOR 0.9% PF (SALINE LOCK) 10ML VIAL/SYR IV SCH ×2 (08:37→21:52)
[2021-10-12] MEDS: FUROSEMIDE 20 MG/2 ML VIAL IV SCH (08:38)
[2021-10-12] MEDS: fentaNYL Drip 2500mCg/250mlNS 250 ML IV SCH ×2 (11:18→22:15)
[2021-10-12] MEDS: ALBUTEROL SULF 2.5 MG/0.5ML(0.5%) NEB SOLN NEB PRN (18:51)
[2021-10-13] VITALS (95 sets, daily range): BP systolic 86–130; BP diastolic 41–74
[2021-10-13] MEDS: MIDAZOLAM DRIP 50 mg/50mL 50 ML IV SCH ×3 (04:59→22:14)
[2021-10-13] MEDS: InsuLIN REG 1unit/0.01ml Soln (100units/ml) SC SCH ×4 (05:40→23:58)
[2021-10-13] MEDS: ACCU-CHEK COMFORT CURVE STRIP VI SCH ×4 (05:40→23:58)
[2021-10-13] MEDS: METOCLOPRAMIDE HCL 5MG/ml INJ 2ml VIAL IV SCH ×3 (05:40→22:12)
[2021-10-13] MEDS: LEVOTHYROXINE SODIUM 100 MCG TAB PO SCH (07:00)
[2021-10-13 08:59] LABS: Hematocrit 34.4 % (36.0-46.0); Hemoglobin 11.5 g/dL (12.2-16.2); Mean Corpuscular Hemoglobin 32.1 pg (28.0-32.0); Mean Corpuscular Hgb Conc. 33.5 g/dL (32.0-36.0); Red Blood Cells 3.58 10^6/uL (4.0-5.20); Red Cell Distribution Width 15.6 % (11.8-14.3)
[2021-10-13 09:00] LABS: Basophils % (manual) 0 (0.0-2.0); Blast Cells 0; Eosinophils % (manual) 0 (0-7); Metamyelocytes % 0; Myelocytes % 0; Promyelocytes % 0; Reactive Lymphocytes 0
[2021-10-13 09:21] LABS: Calcium 8.3 mg/dL (8.5-10.1); Potassium 3.9 mmol/L (3.5-5.1)
[2021-10-13 09:24] LABS: BUN/Creatinine Ratio 73.9; Bilirubin, Total 0.6 mg/dL (0.2-1.0); Total Protein 5.1 g/dL (6.4-8.2)
[2021-10-13] MEDS: DexAMETHasone SOD PHOS 10MG/1ML VIAL INJ IV SCH (09:31)
[2021-10-13] MEDS: FUROSEMIDE 20 MG/2 ML VIAL IV SCH (09:31)
[2021-10-13] MEDS: levoFLOXacin 500MG 100 ML IV SCH (09:31)
[2021-10-13] MEDS: FAMOTIDINE (10MG/ML) 2ML VL IV SCH (09:31)
[2021-10-13] MEDS: SODIUM CHLOR 0.9% PF (SALINE LOCK) 10ML VIAL/SYR IV SCH ×2 (09:31→22:12)
[2021-10-13] MEDS: CHOLECALCIFEROL (VITD3) 2,000 UNIT CAP/TAB PO SCH (09:32)
[2021-10-13] MEDS: LACTULOSE 20Gm/30ML SOLN PO SCH ×2 (09:32→22:12)
[2021-10-13] MEDS: ZINC SULFATE 220mg CAP or TAB PO SCH (09:32)
[2021-10-13] MEDS: ASCORBIC ACID 1,000 MG TAB PO SCH (09:32)
[2021-10-13 10:00] LABS: Band Neutrophils % (manual) 13; Lymphocytes % (manual) 4 (10.0-50.0); Monocytes % (manual) 9 (0-12)
[2021-10-13] MEDS: fentaNYL Drip 2500mCg/250mlNS 250 ML IV SCH (10:56)
[2021-10-13] MEDS: PROPOFOL 100 ML IV SCH ×2 (16:30→23:18)
[2021-10-13] MEDS: NOREPINEPHRINE 8 MG/250ML KIT 250 ML IV SCH (18:14)
[2021-10-13] MEDS: ALBUTEROL SULF 2.5 MG/0.5ML(0.5%) NEB SOLN NEB PRN (19:50)
[2021-10-13] MEDS: BUDESONIDE (INHALATION) 0.5 MG/2 ML NEB NEB SCH (19:50)
[2021-10-14] VITALS (100 sets, daily range): BP systolic 96–133; BP diastolic 42–65
[2021-10-14] MEDS: NOREPINEPHRINE 8 MG/250ML KIT 250 ML IV SCH ×2 (00:50→23:33)
[2021-10-14] MEDS: MIDAZOLAM DRIP 50 mg/50mL 50 ML IV SCH ×2 (01:48→05:58)
[2021-10-14] MEDS: PROPOFOL 100 ML IV SCH ×3 (02:23→22:00)
[2021-10-14 04:32] LABS: Hematocrit 34.1 % (36.0-46.0); Hemoglobin 11.5 g/dL (12.2-16.2); Mean Corpuscular Hemoglobin 32.5 pg (28.0-32.0); Mean Corpuscular Hgb Conc. 33.7 g/dL (32.0-36.0); Mean Corpuscular Volume 96.5 fL (80.0-100.0); Red Blood Cells 3.53 10^6/uL (4.0-5.20); Red Cell Distribution Width 15.7 % (11.8-14.3); White Blood Cell 6.9 10^3/uL (4.4-10.8)
[2021-10-14 04:52] LABS: Potassium 3.8 mmol/L (3.5-5.1)
[2021-10-14 04:56] LABS: BUN/Creatinine Ratio 66.7; Calcium 8.3 mg/dL (8.5-10.1)
[2021-10-14 04:59] LABS: Bilirubin, Total 0.4 mg/dL (0.2-1.0); Total Protein 4.8 g/dL (6.4-8.2)
[2021-10-14 05:16] LABS: Basophils % (manual) 0 (0.0-2.0); Blast Cells 0; Eosinophils % (manual) 0 (0-7); Metamyelocytes % 0; Myelocytes % 0; Promyelocytes % 0; Reactive Lymphocytes 0
[2021-10-14] MEDS: METOCLOPRAMIDE HCL 5MG/ml INJ 2ml VIAL IV SCH ×3 (05:55→22:07)
[2021-10-14] MEDS: InsuLIN REG 1unit/0.01ml Soln (100units/ml) SC SCH ×3 (05:56→17:09)
[2021-10-14] MEDS: ACCU-CHEK COMFORT CURVE STRIP VI SCH ×3 (05:56→17:09)
[2021-10-14] MEDS: fentaNYL Drip 2500mCg/250mlNS 250 ML IV SCH (05:59)
[2021-10-14] MEDS: LEVOTHYROXINE SODIUM 100 MCG TAB PO SCH (07:00)
[2021-10-14 07:19] LABS: Band Neutrophils % (manual) 20; Lymphocytes % (manual) 8 (10.0-50.0); Monocytes % (manual) 8 (0-12)
[2021-10-14] MEDS: ALBUTEROL SULF 2.5 MG/0.5ML(0.5%) NEB SOLN NEB PRN ×2 (07:30→22:04)
[2021-10-14] MEDS: BUDESONIDE (INHALATION) 0.5 MG/2 ML NEB NEB SCH ×2 (07:30→22:04)
[2021-10-14] MEDS: DexAMETHasone SOD PHOS 10MG/1ML VIAL INJ IV SCH (09:31)
[2021-10-14] MEDS: FUROSEMIDE 20 MG/2 ML VIAL IV SCH (09:31)
[2021-10-14] MEDS: levoFLOXacin 500MG 100 ML IV SCH (09:32)
[2021-10-14] MEDS: SODIUM CHLOR 0.9% PF (SALINE LOCK) 10ML VIAL/SYR IV SCH ×2 (09:32→22:07)
[2021-10-14] MEDS: LACTULOSE 20Gm/30ML SOLN PO SCH ×2 (09:32→22:07)
[2021-10-14] MEDS: CHOLECALCIFEROL (VITD3) 2,000 UNIT CAP/TAB PO SCH (09:32)
[2021-10-14] MEDS: ZINC SULFATE 220mg CAP or TAB PO SCH (09:32)
[2021-10-14] MEDS: ASCORBIC ACID 1,000 MG TAB PO SCH (09:32)
[2021-10-14] MEDS: FAMOTIDINE (10MG/ML) 2ML VL IV SCH (09:32)
[2021-10-15] VITALS (101 sets, daily range): BP systolic 93–129; BP diastolic 44–62
[2021-10-15] MEDS: ACCU-CHEK COMFORT CURVE STRIP VI SCH ×4 (00:50→17:25)
[2021-10-15] MEDS: MIDAZOLAM DRIP 50 mg/50mL 50 ML IV SCH ×2 (00:52→20:45)
[2021-10-15] MEDS: PROPOFOL 100 ML IV SCH ×3 (02:05→20:45)
[2021-10-15] MEDS: fentaNYL Drip 2500mCg/250mlNS 250 ML IV SCH (02:05)
[2021-10-15 03:57] LABS: Basophils # (auto) 0 10 ^3/uL (0-0.2); Basophils % (auto) 0.4 % (0.0-2.0); Eosinophils # (auto) 0 10 ^3/uL (0-0.8); Eosinophils % (auto) 0.4 % (0.0-7.0); Hematocrit 33.1 % (36.0-46.0); Hemoglobin 10.8 g/dL (12.2-16.2); Lymphocytes # (auto) 0.6 10 ^3/uL (0.4-5.4); Lymphocytes % (auto) 10.6 % (10.0-50.0); Mean Corpuscular Hemoglobin 31.8 pg (28.0-32.0); Mean Corpuscular Hgb Conc. 32.8 g/dL (32.0-36.0); Mean Corpuscular Volume 97.1 fL (80.0-100.0); Monocytes # (auto) 0.3 10 ^3/uL (0-1.3); Monocytes % (auto) 4.8 % (0.0-12.0); Neutrophils # (auto) 4.9 10 ^3/uL (1.6-8.6); Neutrophils % (auto) 83.8 % (37.0-80.0); Nucleated Red Blood Cells % 0.1 %; Red Cell Distribution Width 15.9 % (11.8-14.3); White Blood Cell 5.8 10^3/uL (4.4-10.8)
[2021-10-15 04:15] LABS: Calcium 8.7 mg/dL (8.5-10.1); Chloride 99 mmol/L (98-107); Potassium 3.8 mmol/L (3.5-5.1); Sodium 142 mmol/L (136-145)
[2021-10-15 04:18] LABS: Anion Gap 3 (5-15); Aspartate Aminotransferase 31 U/L (15-37); Blood Urea Nitrogen 12 mg/dL (7-18); Carbon Dioxide 40 mmol/L (21-32); GFR African American 628 mL/min; GFR Non-African American 519 mL/min; Glucose 161 mg/dL (74-106)
[2021-10-15 04:20] LABS: Alanine Aminotransferase 47 U/L (13-56); Alkaline Phosphatase 124 U/L (45-117); Bilirubin, Total 0.6 mg/dL (0.2-1.0); Total Protein 4.6 g/dL (6.4-8.2)
[2021-10-15] MEDS: InsuLIN REG 1unit/0.01ml Soln (100units/ml) SC SCH ×4 (05:38→17:25)
[2021-10-15] MEDS: METOCLOPRAMIDE HCL 5MG/ml INJ 2ml VIAL IV SCH ×3 (06:07→22:17)
[2021-10-15] MEDS: LEVOTHYROXINE SODIUM 100 MCG TAB PO SCH (06:07)
[2021-10-15] MEDS: ALBUTEROL SULF 2.5 MG/0.5ML(0.5%) NEB SOLN NEB PRN (06:09)
[2021-10-15] MEDS: BUDESONIDE (INHALATION) 0.5 MG/2 ML NEB NEB SCH ×2 (06:10→22:00)
[2021-10-15] MEDS: DexAMETHasone SOD PHOS 10MG/1ML VIAL INJ IV SCH (09:27)
[2021-10-15] MEDS: levoFLOXacin 500MG 100 ML IV SCH (09:28)
[2021-10-15] MEDS: ZINC SULFATE 220mg CAP or TAB PO SCH (09:28)
[2021-10-15] MEDS: ASCORBIC ACID 1,000 MG TAB PO SCH (09:28)
[2021-10-15] MEDS: FAMOTIDINE (10MG/ML) 2ML VL IV SCH (09:28)
[2021-10-15] MEDS: SODIUM CHLOR 0.9% PF (SALINE LOCK) 10ML VIAL/SYR IV SCH ×2 (09:28→22:18)
[2021-10-15] MEDS: FUROSEMIDE 20 MG/2 ML VIAL IV SCH (09:28)
[2021-10-15] MEDS: LACTULOSE 20Gm/30ML SOLN PO SCH ×2 (09:28→22:17)
[2021-10-15] MEDS: CHOLECALCIFEROL (VITD3) 2,000 UNIT CAP/TAB PO SCH (09:28)
[2021-10-16] VITALS (102 sets, daily range): BP systolic 100–143; BP diastolic 47–76
[2021-10-16] MEDS: PROPOFOL 100 ML IV SCH ×5 (00:50→23:58)
[2021-10-16] MEDS: MIDAZOLAM DRIP 50 mg/50mL 50 ML IV SCH ×2 (02:45→13:22)
[2021-10-16] MEDS: NOREPINEPHRINE 8 MG/250ML KIT 250 ML IV SCH ×2 (03:42→16:56)
[2021-10-16] MEDS: fentaNYL Drip 2500mCg/250mlNS 250 ML IV SCH ×2 (05:10→15:00)
[2021-10-16] MEDS: METOCLOPRAMIDE HCL 5MG/ml INJ 2ml VIAL IV SCH ×3 (06:26→21:34)
[2021-10-16] MEDS: ACCU-CHEK COMFORT CURVE STRIP VI SCH ×4 (06:26→17:50)
[2021-10-16] MEDS: InsuLIN REG 1unit/0.01ml Soln (100units/ml) SC SCH ×4 (06:27→17:49)
[2021-10-16] MEDS: Jevity 1.2 Cal/Fiber 1 Liter GT SCH (06:32)
[2021-10-16] MEDS: BUDESONIDE (INHALATION) 0.5 MG/2 ML NEB NEB SCH ×2 (06:59→22:07)
[2021-10-16] MEDS: ALBUTEROL SULF 2.5 MG/0.5ML(0.5%) NEB SOLN NEB PRN ×2 (06:59→22:07)
[2021-10-16] MEDS: LEVOTHYROXINE SODIUM 100 MCG TAB PO SCH (08:00)
[2021-10-16] MEDS: FUROSEMIDE 20 MG/2 ML VIAL IV SCH (10:06)
[2021-10-16] MEDS: DexAMETHasone SOD PHOS 10MG/1ML VIAL INJ IV SCH (10:06)
[2021-10-16] MEDS: FAMOTIDINE (10MG/ML) 2ML VL IV SCH (10:07)
[2021-10-16] MEDS: LACTULOSE 20Gm/30ML SOLN PO SCH ×2 (10:07→21:35)
[2021-10-16] MEDS: SODIUM CHLOR 0.9% PF (SALINE LOCK) 10ML VIAL/SYR IV SCH ×2 (10:07→21:34)
[2021-10-16] MEDS: levoFLOXacin 500MG 100 ML IV SCH (10:07)
[2021-10-16] MEDS: CHOLECALCIFEROL (VITD3) 2,000 UNIT CAP/TAB PO SCH (10:08)
[2021-10-17] VITALS (102 sets, daily range): BP systolic 99–140; BP diastolic 45–77
[2021-10-17] MEDS: ACCU-CHEK COMFORT CURVE STRIP VI SCH ×4 (00:22→18:09)
[2021-10-17] MEDS: fentaNYL Drip 2500mCg/250mlNS 250 ML IV SCH ×2 (01:13→15:00)
[2021-10-17] MEDS: MIDAZOLAM DRIP 50 mg/50mL 50 ML IV SCH ×2 (01:14→21:32)
[2021-10-17] MEDS: METOCLOPRAMIDE HCL 5MG/ml INJ 2ml VIAL IV SCH ×3 (05:36→21:30)
[2021-10-17] MEDS: LEVOTHYROXINE SODIUM 100 MCG TAB PO SCH (05:37)
[2021-10-17] MEDS: InsuLIN REG 1unit/0.01ml Soln (100units/ml) SC SCH ×4 (06:00→18:09)
[2021-10-17] MEDS: PROPOFOL 100 ML IV SCH ×5 (06:05→21:32)
[2021-10-17] MEDS: NOREPINEPHRINE 8 MG/250ML KIT 250 ML IV SCH (06:05)
[2021-10-17] MEDS: ALBUTEROL SULF 2.5 MG/0.5ML(0.5%) NEB SOLN NEB PRN ×2 (06:46→22:23)
[2021-10-17] MEDS: BUDESONIDE (INHALATION) 0.5 MG/2 ML NEB NEB SCH ×2 (06:46→22:23)
[2021-10-17] MEDS: DexAMETHasone SOD PHOS 10MG/1ML VIAL INJ IV SCH (09:41)
[2021-10-17] MEDS: FAMOTIDINE (10MG/ML) 2ML VL IV SCH (09:42)
[2021-10-17] MEDS: levoFLOXacin 500MG 100 ML IV SCH (09:42)
[2021-10-17] MEDS: SODIUM CHLOR 0.9% PF (SALINE LOCK) 10ML VIAL/SYR IV SCH ×2 (09:42→21:30)
[2021-10-17] MEDS: CHOLECALCIFEROL (VITD3) 2,000 UNIT CAP/TAB PO SCH (09:43)
[2021-10-17] MEDS: LACTULOSE 20Gm/30ML SOLN PO SCH ×2 (09:43→21:30)
[2021-10-17] MEDS ORDERED: FUROSEMIDE 20 MG/2 ML VIAL IV ONE (15:30)
[2021-10-17] MEDS ORDERED: hydrOXYchloroQUINE SULFATE 200 MG TAB PO ONE (15:30)
[2021-10-17] MEDS ORDERED: POTASSIUM EFFERVESENT TAB 25 MEQ GT ONE (15:30)
[2021-10-18] VITALS (101 sets, daily range): BP systolic 82–133; BP diastolic 8–66
[2021-10-18] MEDS: ACCU-CHEK COMFORT CURVE STRIP VI SCH ×4 (00:06→18:09)
[2021-10-18] MEDS: PROPOFOL 100 ML IV SCH ×4 (02:57→21:06)
[2021-10-18] MEDS: MIDAZOLAM DRIP 50 mg/50mL 50 ML IV SCH ×2 (03:00→21:07)
[2021-10-18] MEDS: NOREPINEPHRINE 8 MG/250ML KIT 250 ML IV SCH ×2 (03:01→21:08)
[2021-10-18] MEDS: METOCLOPRAMIDE HCL 5MG/ml INJ 2ml VIAL IV SCH ×3 (05:29→21:04)
[2021-10-18] MEDS: InsuLIN REG 1unit/0.01ml Soln (100units/ml) SC SCH ×4 (05:29→18:11)
[2021-10-18 05:39] LABS: Hematocrit 41.2 % (36.0-46.0); Hemoglobin 13.8 g/dL (12.2-16.2); Mean Corpuscular Hemoglobin 32.2 pg (28.0-32.0); Mean Corpuscular Hgb Conc. 33.4 g/dL (32.0-36.0); Mean Corpuscular Volume 96.4 fL (80.0-100.0); Red Blood Cells 4.28 10^6/uL (4.0-5.20); Red Cell Distribution Width 16.2 % (11.8-14.3); White Blood Cell 4.4 10^3/uL (4.4-10.8)
[2021-10-18 05:46] LABS: Basophils % (manual) 0 (0.0-2.0); Blast Cells 0; Eosinophils % (manual) 0 (0-7); Promyelocytes % 0; Reactive Lymphocytes 0
[2021-10-18 05:59] LABS: Albumin 1.7 g/dL (3.4-5.0); Anion Gap 6 (5-15); Blood Urea Nitrogen 10 mg/dL (7-18); Calcium 8.5 mg/dL (8.5-10.1); Chloride 97 mmol/L (98-107); Glucose 91 mg/dL (74-106); Potassium 3.5 mmol/L (3.5-5.1); Sodium 144 mmol/L (136-145)
[2021-10-18 06:01] LABS: BUN/Creatinine Ratio 66.7; GFR African American 628 mL/min; GFR Non-African American 519 mL/min
[2021-10-18] MEDS: LEVOTHYROXINE SODIUM 100 MCG TAB PO SCH (06:02)
[2021-10-18 06:07] LABS: Metamyelocytes % 1; Monocytes % (manual) 7 (0-12); Myelocytes % 4
[2021-10-18 06:08] LABS: Band Neutrophils % (manual) 34; Lymphocytes % (manual) 9 (10.0-50.0)
[2021-10-18 06:12] LABS: Alanine Aminotransferase 38 U/L (13-56); Alkaline Phosphatase 118 U/L (45-117); Aspartate Aminotransferase 22 U/L (15-37); Bilirubin, Total 0.5 mg/dL (0.2-1.0); Total Protein 4.4 g/dL (6.4-8.2)
[2021-10-18] MEDS: BUDESONIDE (INHALATION) 0.5 MG/2 ML NEB NEB SCH ×2 (06:18→22:06)
[2021-10-18] MEDS: ALBUTEROL SULF 2.5 MG/0.5ML(0.5%) NEB SOLN NEB PRN ×2 (06:18→22:06)
[2021-10-18 06:30] LABS: Carbon Dioxide 41 mmol/L (21-32)
[2021-10-18] MEDS: FAMOTIDINE (10MG/ML) 2ML VL IV SCH (10:00)
[2021-10-18] MEDS: DexAMETHasone SOD PHOS 10MG/1ML VIAL INJ IV SCH (10:00)
[2021-10-18] MEDS ORDERED: FUROSEMIDE 20 MG/2 ML VIAL IV SCH (10:00)
[2021-10-18] MEDS: SODIUM CHLOR 0.9% PF (SALINE LOCK) 10ML VIAL/SYR IV SCH ×2 (10:00→21:08)
[2021-10-18] MEDS ORDERED: POTASSIUM EFFERVESENT TAB 25 MEQ GT SCH (10:00)
[2021-10-18] MEDS: hydrOXYchloroQUINE SULFATE 200 MG TAB PO SCH (10:00)
[2021-10-18] MEDS: levoFLOXacin 500MG 100 ML IV SCH (10:00)
[2021-10-18] MEDS: CHOLECALCIFEROL (VITD3) 2,000 UNIT CAP/TAB PO SCH (10:00)
[2021-10-18] MEDS: LACTULOSE 20Gm/30ML SOLN PO SCH ×2 (10:00→21:04)
[2021-10-18] MEDS: fentaNYL Drip 2500mCg/250mlNS 250 ML IV SCH (16:05)
[2021-10-18] MEDS: POTASSIUM EFFERVESENT TAB 25 MEQ GT SCH (21:04)
[2021-10-18] MEDS: FUROSEMIDE 20 MG/2 ML VIAL IV SCH (21:05)
[2021-10-19] VITALS (94 sets, daily range): BP systolic 77–126; BP diastolic 39–70
[2021-10-19] MEDS: ACCU-CHEK COMFORT CURVE STRIP VI SCH ×5 (00:13→23:24)
[2021-10-19] MEDS: PROPOFOL 100 ML IV SCH ×3 (02:00→11:03)
[2021-10-19] MEDS: MIDAZOLAM DRIP 50 mg/50mL 50 ML IV SCH (03:08)
[2021-10-19 04:45] LABS: Basophils # (auto) 0 10 ^3/uL (0-0.2); Basophils % (auto) 0.6 % (0.0-2.0); Eosinophils # (auto) 0 10 ^3/uL (0-0.8); Eosinophils % (auto) 0.5 % (0.0-7.0); Hematocrit 32.3 % (36.0-46.0); Hemoglobin 10.9 g/dL (12.2-16.2); Lymphocytes # (auto) 0.7 10 ^3/uL (0.4-5.4); Lymphocytes % (auto) 9.3 % (10.0-50.0); Mean Corpuscular Hemoglobin 32.3 pg (28.0-32.0); Mean Corpuscular Hgb Conc. 33.9 g/dL (32.0-36.0); Mean Corpuscular Volume 95.3 fL (80.0-100.0); Monocytes # (auto) 0.4 10 ^3/uL (0-1.3); Monocytes % (auto) 5.2 % (0.0-12.0); Neutrophils # (auto) 6.7 10 ^3/uL (1.6-8.6); Neutrophils % (auto) 84.4 % (37.0-80.0); Nucleated Red Blood Cells % 0.1 %; Red Blood Cells 3.39 10^6/uL (4.0-5.20); Red Cell Distribution Width 16.1 % (11.8-14.3); White Blood Cell 7.9 10^3/uL (4.4-10.8)
[2021-10-19 05:06] LABS: Chloride 96 mmol/L (98-107); Potassium 3.7 mmol/L (3.5-5.1); Sodium 141 mmol/L (136-145)
[2021-10-19 05:09] LABS: Anion Gap 4 (5-15); Blood Urea Nitrogen 12 mg/dL (7-18); Glucose 91 mg/dL (74-106)
[2021-10-19 05:21] LABS: Carbon Dioxide 41 mmol/L (21-32); GFR African American 628 mL/min; GFR Non-African American 519 mL/min
[2021-10-19] MEDS: METOCLOPRAMIDE HCL 5MG/ml INJ 2ml VIAL IV SCH ×3 (05:37→22:11)
[2021-10-19] MEDS: InsuLIN REG 1unit/0.01ml Soln (100units/ml) SC SCH ×5 (06:00→23:24)
[2021-10-19] MEDS: BUDESONIDE (INHALATION) 0.5 MG/2 ML NEB NEB SCH ×2 (06:00→22:06)
[2021-10-19] MEDS: LEVOTHYROXINE SODIUM 100 MCG TAB PO SCH (06:08)
[2021-10-19] MEDS: DexAMETHasone SOD PHOS 10MG/1ML VIAL INJ IV SCH (11:03)
[2021-10-19] MEDS: POTASSIUM EFFERVESENT TAB 25 MEQ GT SCH ×2 (11:03→22:10)
[2021-10-19] MEDS: levoFLOXacin 500MG 100 ML IV SCH (11:04)
[2021-10-19] MEDS: FUROSEMIDE 20 MG/2 ML VIAL IV SCH ×2 (11:04→22:11)
[2021-10-19] MEDS: FAMOTIDINE (10MG/ML) 2ML VL IV SCH (11:04)
[2021-10-19] MEDS: LACTULOSE 20Gm/30ML SOLN PO SCH ×2 (11:05→22:00)
[2021-10-19] MEDS: hydrOXYchloroQUINE SULFATE 200 MG TAB PO SCH (11:05)
[2021-10-19] MEDS: SODIUM CHLOR 0.9% PF (SALINE LOCK) 10ML VIAL/SYR IV SCH ×2 (11:05→22:11)
[2021-10-19] MEDS: CHOLECALCIFEROL (VITD3) 2,000 UNIT CAP/TAB PO SCH (11:05)
[2021-10-19] MEDS ORDERED: MICAFUNGIN SODIUM 100 MG in SODIUM CHL 0.9% 100 ML IV ONE (13:45)
[2021-10-19] MEDS: fentaNYL Drip 2500mCg/250mlNS 250 ML IV SCH (19:00)
[2021-10-19] MEDS: ALBUTEROL SULF 2.5 MG/0.5ML(0.5%) NEB SOLN NEB PRN (22:06)
[2021-10-19 22:45] LABS: Urine Bacteria NONE SEEN /hpf (None Seen); Urine Blood 2+ /uL (Negative); Urine Specific Gravity 1.005 (1.001-1.035); Urine WBC 8 /hpf (0 - 5)
[2021-10-20] VITALS (89 sets, daily range): BP systolic 89–136; BP diastolic 41–86
[2021-10-20] MEDS: MIDAZOLAM DRIP 50 mg/50mL 50 ML IV SCH ×4 (00:24→17:59)
[2021-10-20] MEDS: fentaNYL Drip 2500mCg/250mlNS 250 ML IV SCH ×2 (03:21→15:28)
[2021-10-20] MEDS: ACCU-CHEK COMFORT CURVE STRIP VI SCH ×3 (05:44→16:32)
[2021-10-20] MEDS: InsuLIN REG 1unit/0.01ml Soln (100units/ml) SC SCH ×3 (05:44→16:31)
[2021-10-20] MEDS: METOCLOPRAMIDE HCL 5MG/ml INJ 2ml VIAL IV SCH ×3 (05:44→22:41)
[2021-10-20 05:59] LABS: Albumin 1.6 g/dL (3.4-5.0); BUN/Creatinine Ratio 76.5; Calcium 8.1 mg/dL (8.5-10.1); Potassium 3.9 mmol/L (3.5-5.1)
[2021-10-20 06:02] LABS: Bilirubin, Total 0.6 mg/dL (0.2-1.0); Total Protein 4.5 g/dL (6.4-8.2)
[2021-10-20 06:13] LABS: Hematocrit 33.7 % (36.0-46.0); Hemoglobin 11.1 g/dL (12.2-16.2); Mean Corpuscular Hemoglobin 31.7 pg (28.0-32.0); Mean Corpuscular Hgb Conc. 33.1 g/dL (32.0-36.0); Mean Corpuscular Volume 95.9 fL (80.0-100.0); Red Blood Cells 3.51 10^6/uL (4.0-5.20); Red Cell Distribution Width 16.1 % (11.8-14.3); White Blood Cell 9.1 10^3/uL (4.4-10.8)
[2021-10-20] MEDS: LEVOTHYROXINE SODIUM 100 MCG TAB PO SCH (06:13)
[2021-10-20 06:22] LABS: Basophils % (manual) 0 (0.0-2.0); Blast Cells 0; Promyelocytes % 0; Reactive Lymphocytes 0
[2021-10-20 07:05] LABS: Band Neutrophils % (manual) 28; Eosinophils % (manual) 1 (0-7); Lymphocytes % (manual) 8 (10.0-50.0); Metamyelocytes % 1; Monocytes % (manual) 6 (0-12); Myelocytes % 4
[2021-10-20] MEDS: LACTULOSE 20Gm/30ML SOLN PO SCH ×2 (09:11→22:00)
[2021-10-20] MEDS: CHOLECALCIFEROL (VITD3) 2,000 UNIT CAP/TAB PO SCH (09:11)
[2021-10-20] MEDS: levoFLOXacin 500MG 100 ML IV SCH (09:12)
[2021-10-20] MEDS: DexAMETHasone SOD PHOS 10MG/1ML VIAL INJ IV SCH (09:14)
[2021-10-20] MEDS: FUROSEMIDE 20 MG/2 ML VIAL IV SCH ×2 (09:14→22:41)
[2021-10-20] MEDS: FAMOTIDINE (10MG/ML) 2ML VL IV SCH (09:15)
[2021-10-20] MEDS: SODIUM CHLOR 0.9% PF (SALINE LOCK) 10ML VIAL/SYR IV SCH ×2 (09:15→22:00)
[2021-10-20] MEDS: hydrOXYchloroQUINE SULFATE 200 MG TAB PO SCH (09:16)
[2021-10-20] MEDS: POTASSIUM EFFERVESENT TAB 25 MEQ GT SCH ×2 (09:16→22:40)
[2021-10-20] MEDS: MICAFUNGIN SODIUM 100 MG in SODIUM CHL 0.9% 100 ML IV SCH (10:23)
[2021-10-20] MEDS: PROPOFOL 100 ML IV SCH (10:24)
[2021-10-20] MEDS: NOREPINEPHRINE 8 MG/250ML KIT 250 ML IV SCH (14:07)
[2021-10-20] MEDS: Jevity 1.2 Cal/Fiber 1 Liter GT SCH (18:10)
[2021-10-20] MEDS: ALBUTEROL SULF 2.5 MG/0.5ML(0.5%) NEB SOLN NEB PRN (22:48)
[2021-10-20] MEDS: BUDESONIDE (INHALATION) 0.5 MG/2 ML NEB NEB SCH (22:48)
[2021-10-21] VITALS (93 sets, daily range): BP systolic 83–127; BP diastolic 38–81
[2021-10-21] MEDS: MIDAZOLAM DRIP 50 mg/50mL 50 ML IV SCH ×5 (01:14→20:04)
[2021-10-21] MEDS: BUDESONIDE (INHALATION) 0.5 MG/2 ML NEB NEB SCH ×3 (02:35→22:15)
[2021-10-21 05:36] LABS: Basophils # (auto) 0.1 10 ^3/uL (0-0.2); Basophils % (auto) 0.6 % (0.0-2.0); Eosinophils # (auto) 0.1 10 ^3/uL (0-0.8); Eosinophils % (auto) 0.5 % (0.0-7.0); Hematocrit 34.4 % (36.0-46.0); Hemoglobin 11.4 g/dL (12.2-16.2); Lymphocytes % (auto) 9.7 % (10.0-50.0); Mean Corpuscular Hemoglobin 31.9 pg (28.0-32.0); Mean Corpuscular Hgb Conc. 33.3 g/dL (32.0-36.0); Monocytes # (auto) 0.5 10 ^3/uL (0-1.3); Monocytes % (auto) 4.3 % (0.0-12.0); Neutrophils # (auto) 9.1 10 ^3/uL (1.6-8.6); Neutrophils % (auto) 84.9 % (37.0-80.0); Nucleated Red Blood Cells % 0.6 %; Red Blood Cells 3.58 10^6/uL (4.0-5.20); Red Cell Distribution Width 16.2 % (11.8-14.3); White Blood Cell 10.6 10^3/uL (4.4-10.8)
[2021-10-21] MEDS: InsuLIN REG 1unit/0.01ml Soln (100units/ml) SC SCH ×4 (05:43→17:22)
[2021-10-21] MEDS: METOCLOPRAMIDE HCL 5MG/ml INJ 2ml VIAL IV SCH ×3 (05:43→22:04)
[2021-10-21] MEDS: ACCU-CHEK COMFORT CURVE STRIP VI SCH ×4 (05:43→17:23)
[2021-10-21] MEDS: LEVOTHYROXINE SODIUM 100 MCG TAB PO SCH (05:43)
[2021-10-21] MEDS: PROPOFOL 100 ML IV SCH ×2 (05:55→11:04)
[2021-10-21 06:01] LABS: Potassium 3.7 mmol/L (3.5-5.1)
[2021-10-21 06:05] LABS: Calcium 8.1 mg/dL (8.5-10.1)
[2021-10-21] MEDS: fentaNYL Drip 2500mCg/250mlNS 250 ML IV SCH ×2 (06:31→22:11)
[2021-10-21] MEDS: DexAMETHasone SOD PHOS 10MG/1ML VIAL INJ IV SCH (09:08)
[2021-10-21] MEDS: SODIUM CHLOR 0.9% PF (SALINE LOCK) 10ML VIAL/SYR IV SCH ×2 (09:10→22:04)
[2021-10-21] MEDS: LACTULOSE 20Gm/30ML SOLN PO SCH ×2 (09:10→22:04)
[2021-10-21] MEDS: FUROSEMIDE 20 MG/2 ML VIAL IV SCH ×2 (09:10→22:04)
[2021-10-21] MEDS: FAMOTIDINE (10MG/ML) 2ML VL IV SCH (09:10)
[2021-10-21] MEDS: levoFLOXacin 500MG 100 ML IV SCH (09:10)
[2021-10-21] MEDS: CHOLECALCIFEROL (VITD3) 2,000 UNIT CAP/TAB PO SCH (09:11)
[2021-10-21] MEDS: hydrOXYchloroQUINE SULFATE 200 MG TAB PO SCH (09:11)
[2021-10-21] MEDS: POTASSIUM EFFERVESENT TAB 25 MEQ GT SCH ×2 (09:12→22:03)
[2021-10-21] MEDS: MICAFUNGIN SODIUM 100 MG in SODIUM CHL 0.9% 100 ML IV SCH (10:00)
[2021-10-21] MEDS: ALBUTEROL SULF 2.5 MG/0.5ML(0.5%) NEB SOLN NEB PRN ×2 (11:42→22:15)
[2021-10-21] MEDS: NOREPINEPHRINE 8 MG/250ML KIT 250 ML IV SCH (16:30)
[2021-10-22] VITALS (90 sets, daily range): BP systolic 84–155; BP diastolic 34–79
[2021-10-22] MEDS: MIDAZOLAM DRIP 50 mg/50mL 50 ML IV SCH ×4 (01:35→15:28)
[2021-10-22] MEDS: PROPOFOL 100 ML IV SCH ×3 (01:35→12:46)
[2021-10-22] MEDS: NOREPINEPHRINE 8 MG/250ML KIT 250 ML IV SCH (01:36)
[2021-10-22] MEDS: InsuLIN REG 1unit/0.01ml Soln (100units/ml) SC SCH ×5 (05:45→23:51)
[2021-10-22] MEDS: ACCU-CHEK COMFORT CURVE STRIP VI SCH ×5 (05:45→23:51)
[2021-10-22] MEDS: METOCLOPRAMIDE HCL 5MG/ml INJ 2ml VIAL IV SCH ×3 (05:45→21:50)
[2021-10-22] MEDS: LEVOTHYROXINE SODIUM 100 MCG TAB PO SCH (05:46)
[2021-10-22] MEDS: BUDESONIDE (INHALATION) 0.5 MG/2 ML NEB NEB SCH ×2 (05:47→23:16)
[2021-10-22] MEDS: ALBUTEROL SULF 2.5 MG/0.5ML(0.5%) NEB SOLN NEB PRN (05:47)
[2021-10-22] MEDS: FUROSEMIDE 20 MG/2 ML VIAL IV SCH (08:56)
[2021-10-22] MEDS: DexAMETHasone SOD PHOS 10MG/1ML VIAL INJ IV SCH (08:56)
[2021-10-22] MEDS: levoFLOXacin 500MG 100 ML IV SCH (08:56)
[2021-10-22] MEDS: LACTULOSE 20Gm/30ML SOLN PO SCH (08:57)
[2021-10-22] MEDS: SODIUM CHLOR 0.9% PF (SALINE LOCK) 10ML VIAL/SYR IV SCH ×2 (08:58→21:50)
[2021-10-22] MEDS: CHOLECALCIFEROL (VITD3) 2,000 UNIT CAP/TAB PO SCH (08:58)
[2021-10-22] MEDS: FAMOTIDINE (10MG/ML) 2ML VL IV SCH (08:58)
[2021-10-22] MEDS: POTASSIUM EFFERVESENT TAB 25 MEQ GT SCH (08:58)
[2021-10-22] MEDS: hydrOXYchloroQUINE SULFATE 200 MG TAB PO SCH (08:59)
[2021-10-22] MEDS: MICAFUNGIN SODIUM 100 MG in SODIUM CHL 0.9% 100 ML IV SCH (10:11)
[2021-10-22] MEDS: Jevity 1.2 Cal/Fiber 1 Liter GT SCH (15:28)
[2021-10-22] MEDS: fentaNYL Drip 2500mCg/250mlNS 250 ML IV SCH (15:29)
[2021-10-23] VITALS (91 sets, daily range): BP systolic 92–158; BP diastolic 32–67
[2021-10-23] MEDS: METOCLOPRAMIDE HCL 5MG/ml INJ 2ml VIAL IV SCH ×3 (06:00→22:13)
[2021-10-23] MEDS: InsuLIN REG 1unit/0.01ml Soln (100units/ml) SC SCH ×3 (06:00→18:05)
[2021-10-23] MEDS: ACCU-CHEK COMFORT CURVE STRIP VI SCH ×3 (06:36→18:05)
[2021-10-23] MEDS: LEVOTHYROXINE SODIUM 100 MCG TAB PO SCH (06:36)
[2021-10-23 07:03] LABS: Anion Gap 7 (5-15); BUN/Creatinine Ratio 66.7; Basophils # (auto) 0 10 ^3/uL (0-0.2); Basophils % (auto) 0.2 % (0.0-2.0); Blood Urea Nitrogen 10 mg/dL (7-18); Calcium 8.4 mg/dL (8.5-10.1); Carbon Dioxide 37 mmol/L (21-32); Chloride 99 mmol/L (98-107); Eosinophils # (auto) 0 10 ^3/uL (0-0.8); Eosinophils % (auto) 0.3 % (0.0-7.0); GFR African American 628 mL/min; GFR Non-African American 519 mL/min; Glucose 127 mg/dL (74-106); Hemoglobin 10.6 g/dL (12.2-16.2); Lymphocytes # (auto) 0.7 10 ^3/uL (0.4-5.4); Lymphocytes % (auto) 7.2 % (10.0-50.0); Mean Corpuscular Hemoglobin 32.1 pg (28.0-32.0); Mean Corpuscular Hgb Conc. 33.2 g/dL (32.0-36.0); Mean Corpuscular Volume 96.8 fL (80.0-100.0); Monocytes # (auto) 0.5 10 ^3/uL (0-1.3); Neutrophils # (auto) 8.3 10 ^3/uL (1.6-8.6); Neutrophils % (auto) 87.3 % (37.0-80.0); Nucleated Red Blood Cells % 0.6 %; Potassium 3.6 mmol/L (3.5-5.1); Red Cell Distribution Width 16.1 % (11.8-14.3); Sodium 143 mmol/L (136-145); White Blood Cell 9.5 10^3/uL (4.4-10.8)
[2021-10-23] MEDS: PROPOFOL 100 ML IV SCH ×3 (07:19→21:42)
[2021-10-23] MEDS: fentaNYL Drip 2500mCg/250mlNS 250 ML IV SCH ×2 (08:15→21:43)
[2021-10-23] MEDS: SODIUM CHLOR 0.9% PF (SALINE LOCK) 10ML VIAL/SYR IV SCH ×2 (10:00→22:13)
[2021-10-23] MEDS: FAMOTIDINE (10MG/ML) 2ML VL IV SCH (10:14)
[2021-10-23] MEDS: DexAMETHasone SOD PHOS 10MG/1ML VIAL INJ IV SCH (10:16)
[2021-10-23] MEDS: FUROSEMIDE 20 MG/2 ML VIAL IV SCH (10:16)
[2021-10-23] MEDS: hydrOXYchloroQUINE SULFATE 200 MG TAB PO SCH (10:17)
[2021-10-23] MEDS: CHOLECALCIFEROL (VITD3) 2,000 UNIT CAP/TAB PO SCH (10:17)
[2021-10-23] MEDS: POTASSIUM EFFERVESENT TAB 25 MEQ GT SCH (10:18)
[2021-10-23] MEDS: levoFLOXacin 500MG 100 ML IV SCH (10:18)
[2021-10-23] MEDS: MICAFUNGIN SODIUM 100 MG in SODIUM CHL 0.9% 100 ML IV SCH (10:18)
[2021-10-23] MEDS: MIDAZOLAM DRIP 50 mg/50mL 50 ML IV SCH ×3 (10:51→23:18)
[2021-10-23] MEDS: NOREPINEPHRINE 8 MG/250ML KIT 250 ML IV SCH ×2 (10:51→23:34)
[2021-10-23] MEDS: ALBUTEROL SULF 2.5 MG/0.5ML(0.5%) NEB SOLN NEB PRN ×2 (10:53→23:10)
[2021-10-23] MEDS: BUDESONIDE (INHALATION) 0.5 MG/2 ML NEB NEB SCH ×2 (10:54→23:10)
[2021-10-23] MEDS: Jevity 1.2 Cal/Fiber 1 Liter GT SCH (15:58)
[2021-10-24] VITALS (87 sets, daily range): BP systolic 89–144; BP diastolic 17–67
[2021-10-24] MEDS: ACCU-CHEK COMFORT CURVE STRIP VI SCH ×5 (00:14→23:53)
[2021-10-24] MEDS: InsuLIN REG 1unit/0.01ml Soln (100units/ml) SC SCH ×5 (00:14→23:54)
[2021-10-24] MEDS: PROPOFOL 100 ML IV SCH ×2 (01:39→11:00)
[2021-10-24 03:49] LABS: Hematocrit 30.7 % (36.0-46.0); Hemoglobin 10.4 g/dL (12.2-16.2); Mean Corpuscular Volume 97.2 fL (80.0-100.0); Red Blood Cells 3.16 10^6/uL (4.0-5.20); Red Cell Distribution Width 16.4 % (11.8-14.3); White Blood Cell 8.9 10^3/uL (4.4-10.8)
[2021-10-24 04:05] LABS: INR 1.03 (0.9-1.15)
[2021-10-24 04:47] LABS: Basophils % (manual) 0 (0.0-2.0); Blast Cells 0; Eosinophils % (manual) 0 (0-7); Metamyelocytes % 0; Promyelocytes % 0; Reactive Lymphocytes 0
[2021-10-24] MEDS: ALBUTEROL SULF 2.5 MG/0.5ML(0.5%) NEB SOLN NEB PRN ×2 (05:44→19:41)
[2021-10-24] MEDS: BUDESONIDE (INHALATION) 0.5 MG/2 ML NEB NEB SCH ×2 (05:45→19:41)
[2021-10-24] MEDS: MIDAZOLAM DRIP 50 mg/50mL 50 ML IV SCH ×2 (05:50→21:56)
[2021-10-24] MEDS: LEVOTHYROXINE SODIUM 100 MCG TAB PO SCH (06:04)
[2021-10-24] MEDS: METOCLOPRAMIDE HCL 5MG/ml INJ 2ml VIAL IV SCH ×3 (06:04→21:50)
[2021-10-24 07:09] LABS: Band Neutrophils % (manual) 36; Lymphocytes % (manual) 8 (10.0-50.0); Monocytes % (manual) 6 (0-12); Myelocytes % 4
[2021-10-24] MEDS: DexAMETHasone SOD PHOS 10MG/1ML VIAL INJ IV SCH (10:18)
[2021-10-24] MEDS: levoFLOXacin 500MG 100 ML IV SCH (10:18)
[2021-10-24] MEDS: FAMOTIDINE (10MG/ML) 2ML VL IV SCH (10:19)
[2021-10-24] MEDS: POTASSIUM EFFERVESENT TAB 25 MEQ GT SCH (10:19)
[2021-10-24] MEDS: FUROSEMIDE 20 MG/2 ML VIAL IV SCH (10:19)
[2021-10-24] MEDS: SODIUM CHLOR 0.9% PF (SALINE LOCK) 10ML VIAL/SYR IV SCH ×2 (10:20→21:50)
[2021-10-24] MEDS: hydrOXYchloroQUINE SULFATE 200 MG TAB PO SCH (10:20)
[2021-10-24] MEDS: CHOLECALCIFEROL (VITD3) 2,000 UNIT CAP/TAB PO SCH (10:20)
[2021-10-24] MEDS: MICAFUNGIN SODIUM 100 MG in SODIUM CHL 0.9% 100 ML IV SCH (11:18)
[2021-10-24] MEDS: fentaNYL Drip 2500mCg/250mlNS 250 ML IV SCH (14:01)
[2021-10-25] VITALS (101 sets, daily range): BP systolic 79–135; BP diastolic 40–69
[2021-10-25] MEDS: NOREPINEPHRINE 8 MG/250ML KIT 250 ML IV SCH ×3 (02:31→23:00)
[2021-10-25] MEDS: PROPOFOL 100 ML IV SCH ×6 (04:26→22:31)
[2021-10-25] MEDS: MIDAZOLAM DRIP 50 mg/50mL 50 ML IV SCH ×5 (04:27→21:14)
[2021-10-25] MEDS: fentaNYL Drip 2500mCg/250mlNS 250 ML IV SCH ×2 (05:07→22:55)
[2021-10-25] MEDS: METOCLOPRAMIDE HCL 5MG/ml INJ 2ml VIAL IV SCH ×3 (06:00→22:30)
[2021-10-25] MEDS: InsuLIN REG 1unit/0.01ml Soln (100units/ml) SC SCH ×3 (06:00→18:13)
[2021-10-25] MEDS: ALBUTEROL SULF 2.5 MG/0.5ML(0.5%) NEB SOLN NEB PRN ×2 (06:03→20:14)
[2021-10-25] MEDS: BUDESONIDE (INHALATION) 0.5 MG/2 ML NEB NEB SCH ×2 (06:03→20:14)
[2021-10-25] MEDS: ACCU-CHEK COMFORT CURVE STRIP VI SCH ×3 (06:36→18:13)
[2021-10-25] MEDS: LEVOTHYROXINE SODIUM 100 MCG TAB PO SCH (06:39)
[2021-10-25] MEDS ORDERED: DexAMETHasone SOD PHOS 4 MG/1ML SDV INJ IV SCH (10:00)
[2021-10-25] MEDS: MICAFUNGIN SODIUM 100 MG in SODIUM CHL 0.9% 100 ML IV SCH (10:00)
[2021-10-25] MEDS: CHOLECALCIFEROL (VITD3) 2,000 UNIT CAP/TAB PO SCH (10:00)
[2021-10-25] MEDS: POTASSIUM EFFERVESENT TAB 25 MEQ GT SCH (10:09)
[2021-10-25] MEDS: SODIUM CHLOR 0.9% PF (SALINE LOCK) 10ML VIAL/SYR IV SCH ×2 (10:12→22:30)
[2021-10-25] MEDS: levoFLOXacin 500MG 100 ML IV SCH (10:12)
[2021-10-25] MEDS: FUROSEMIDE 20 MG/2 ML VIAL IV SCH (10:13)
[2021-10-25] MEDS: hydrOXYchloroQUINE SULFATE 200 MG TAB PO SCH (10:15)
[2021-10-25] MEDS: FAMOTIDINE (10MG/ML) 2ML VL IV SCH (10:15)
[2021-10-25] MEDS ORDERED: VORICONAZOLE INJ 400 MG in D5W 5% 250 ML IV SCH (18:00)
[2021-10-25] MEDS: VORICONAZOLE IV SCH (18:25)
[2021-10-25] MEDS: D5W 5% IV SCH (18:25)
[2021-10-26] VITALS (99 sets, daily range): BP systolic 77–122; BP diastolic 35–61
[2021-10-26] MEDS: ACCU-CHEK COMFORT CURVE STRIP VI SCH ×4 (00:23→18:25)
[2021-10-26] MEDS: MIDAZOLAM DRIP 50 mg/50mL 50 ML IV SCH ×2 (01:31→05:54)
[2021-10-26] MEDS: PROPOFOL 100 ML IV SCH (03:07)
[2021-10-26 03:36] LABS: Hematocrit 29.5 % (36.0-46.0); Hemoglobin 10.1 g/dL (12.2-16.2); Mean Corpuscular Hemoglobin 33.6 pg (28.0-32.0); Mean Corpuscular Hgb Conc. 34.2 g/dL (32.0-36.0); Mean Corpuscular Volume 98.1 fL (80.0-100.0); Red Blood Cells 3.01 10^6/uL (4.0-5.20); Red Cell Distribution Width 16.6 % (11.8-14.3); White Blood Cell 10.3 10^3/uL (4.4-10.8)
[2021-10-26 03:52] LABS: Basophils % (manual) 0 (0.0-2.0); Blast Cells 0; Promyelocytes % 0; Reactive Lymphocytes 0
[2021-10-26 03:55] LABS: Albumin 1.4 g/dL (3.4-5.0); Calcium 7.3 mg/dL (8.5-10.1); Potassium 3.9 mmol/L (3.5-5.1)
[2021-10-26 04:21] LABS: Bilirubin, Total 0.6 mg/dL (0.2-1.0)
[2021-10-26] MEDS: VORICONAZOLE IV SCH (05:38)
[2021-10-26] MEDS: D5W 5% IV SCH (05:38)
[2021-10-26] MEDS: InsuLIN REG 1unit/0.01ml Soln (100units/ml) SC SCH ×4 (05:46→18:00)
[2021-10-26] MEDS: METOCLOPRAMIDE HCL 5MG/ml INJ 2ml VIAL IV SCH ×3 (06:00→21:15)
[2021-10-26] MEDS: LEVOTHYROXINE SODIUM 100 MCG TAB PO SCH (06:11)
[2021-10-26 06:29] LABS: Total Protein 5.1 g/dL (6.4-8.2)
[2021-10-26] MEDS: NOREPINEPHRINE 8 MG/250ML KIT 250 ML IV SCH (07:07)
[2021-10-26 07:27] LABS: Band Neutrophils % (manual) 33; Eosinophils % (manual) 1 (0-7); Lymphocytes % (manual) 8 (10.0-50.0); Metamyelocytes % 3; Monocytes % (manual) 1 (0-12); Myelocytes % 2
[2021-10-26] MEDS: POTASSIUM EFFERVESENT TAB 25 MEQ GT SCH (09:34)
[2021-10-26] MEDS: levoFLOXacin 500MG 100 ML IV SCH ×2 (09:34→17:00)
[2021-10-26] MEDS: SODIUM CHLOR 0.9% PF (SALINE LOCK) 10ML VIAL/SYR IV SCH ×2 (09:37→21:16)
[2021-10-26] MEDS: FAMOTIDINE (10MG/ML) 2ML VL IV SCH (09:37)
[2021-10-26] MEDS: hydrOXYchloroQUINE SULFATE 200 MG TAB PO SCH (09:37)
[2021-10-26] MEDS: FUROSEMIDE 20 MG/2 ML VIAL IV SCH (09:38)
[2021-10-26] MEDS: CHOLECALCIFEROL (VITD3) 2,000 UNIT CAP/TAB PO SCH (09:38)
[2021-10-26] MEDS: ALBUTEROL SULF 2.5 MG/0.5ML(0.5%) NEB SOLN NEB PRN (10:50)
[2021-10-26] MEDS: BUDESONIDE (INHALATION) 0.5 MG/2 ML NEB NEB SCH ×2 (10:50→22:20)
[2021-10-26] MEDS: VORICONAZOLE INJ 300 MG in D5W 5% 250 ML IV SCH (18:36)
[2021-10-27] VITALS (81 sets, daily range): BP systolic 94–156; BP diastolic 39–71
[2021-10-27] MEDS: ACCU-CHEK COMFORT CURVE STRIP VI SCH ×4 (00:37→18:10)
[2021-10-27] MEDS: PROPOFOL 100 ML IV SCH ×3 (00:44→17:35)
[2021-10-27] MEDS: fentaNYL Drip 2500mCg/250mlNS 250 ML IV SCH (02:38)
[2021-10-27] MEDS: NOREPINEPHRINE 8 MG/250ML KIT 250 ML IV SCH (04:34)
[2021-10-27] MEDS: METOCLOPRAMIDE HCL 5MG/ml INJ 2ml VIAL IV SCH ×3 (05:58→21:58)
[2021-10-27] MEDS: VORICONAZOLE INJ 300 MG in D5W 5% 250 ML IV SCH ×2 (05:58→17:32)
[2021-10-27] MEDS: InsuLIN REG 1unit/0.01ml Soln (100units/ml) SC SCH ×4 (05:58→18:10)
[2021-10-27] MEDS: LEVOTHYROXINE SODIUM 100 MCG TAB PO SCH (05:59)
[2021-10-27] MEDS: MIDAZOLAM DRIP 50 mg/50mL 50 ML IV SCH ×2 (06:24→20:40)
[2021-10-27] MEDS: BUDESONIDE (INHALATION) 0.5 MG/2 ML NEB NEB SCH ×2 (08:20→20:59)
[2021-10-27] MEDS: ALBUTEROL SULF 2.5 MG/0.5ML(0.5%) NEB SOLN NEB PRN ×2 (08:20→20:59)
[2021-10-27] MEDS: CHOLECALCIFEROL (VITD3) 2,000 UNIT CAP/TAB PO SCH ×2 (10:00→16:30)
[2021-10-27] MEDS: POTASSIUM EFFERVESENT TAB 25 MEQ GT SCH ×2 (10:00→19:51)
[2021-10-27] MEDS: hydrOXYchloroQUINE SULFATE 200 MG TAB PO SCH ×2 (10:00→16:30)
[2021-10-27] MEDS: levoFLOXacin 500MG 100 ML IV SCH (10:11)
[2021-10-27] MEDS: SODIUM CHLOR 0.9% PF (SALINE LOCK) 10ML VIAL/SYR IV SCH ×2 (10:12→21:58)
[2021-10-27] MEDS: FAMOTIDINE (10MG/ML) 2ML VL IV SCH (10:12)
[2021-10-27] MEDS: FUROSEMIDE 20 MG/2 ML VIAL IV SCH (10:13)
[2021-10-28] VITALS (99 sets, daily range): BP systolic 90–125; BP diastolic 45–76
[2021-10-28] MEDS: NOREPINEPHRINE 8 MG/250ML KIT 250 ML IV SCH (00:08)
[2021-10-28] MEDS: PROPOFOL 100 ML IV SCH ×2 (01:43→06:09)
[2021-10-28 04:49] LABS: Hematocrit 31.5 % (36.0-46.0); Hemoglobin 10.6 g/dL (12.2-16.2); Mean Corpuscular Hemoglobin 32.3 pg (28.0-32.0); Mean Corpuscular Hgb Conc. 33.5 g/dL (32.0-36.0); Mean Corpuscular Volume 96.3 fL (80.0-100.0); Red Blood Cells 3.28 10^6/uL (4.0-5.20); Red Cell Distribution Width 16.7 % (11.8-14.3); White Blood Cell 10.8 10^3/uL (4.4-10.8)
[2021-10-28 05:11] LABS: Chloride 96 mmol/L (98-107); Sodium 139 mmol/L (136-145)
[2021-10-28 05:19] LABS: Anion Gap 5 (5-15); Blood Urea Nitrogen 6 mg/dL (7-18); Carbon Dioxide 38 mmol/L (21-32); GFR African American 628 mL/min; GFR Non-African American 519 mL/min; Glucose 107 mg/dL (74-106)
[2021-10-28] MEDS: InsuLIN REG 1unit/0.01ml Soln (100units/ml) SC SCH ×4 (05:51→18:00)
[2021-10-28] MEDS: METOCLOPRAMIDE HCL 5MG/ml INJ 2ml VIAL IV SCH ×3 (05:51→22:30)
[2021-10-28] MEDS: ACCU-CHEK COMFORT CURVE STRIP VI SCH ×4 (05:51→18:19)
[2021-10-28] MEDS: LEVOTHYROXINE SODIUM 100 MCG TAB PO SCH (05:51)
[2021-10-28 06:22] LABS: Calcium < 5.0 mg/dL (8.5-10.1)
[2021-10-28] MEDS: BUDESONIDE (INHALATION) 0.5 MG/2 ML NEB NEB SCH ×2 (06:29→21:35)
[2021-10-28 06:39] LABS: Basophils % (manual) 0 (0.0-2.0); Blast Cells 0; Promyelocytes % 0; Reactive Lymphocytes 0
[2021-10-28] MEDS: VORICONAZOLE INJ 300 MG in D5W 5% 250 ML IV SCH ×2 (06:50→18:19)
[2021-10-28 07:47] LABS: Band Neutrophils % (manual) 18; Eosinophils % (manual) 3 (0-7); Lymphocytes % (manual) 3 (10.0-50.0); Metamyelocytes % 5; Monocytes % (manual) 10 (0-12); Myelocytes % 2
[2021-10-28 08:07] LABS: Albumin 1.5 g/dL (3.4-5.0); Phosphorus 3.2 mg/dL (2.5-4.90)
[2021-10-28] MEDS: FUROSEMIDE 20 MG/2 ML VIAL IV SCH (10:00)
[2021-10-28] MEDS: POTASSIUM EFFERVESENT TAB 25 MEQ GT SCH (10:00)
[2021-10-28] MEDS: levoFLOXacin 500MG 100 ML IV SCH (10:00)
[2021-10-28] MEDS: FAMOTIDINE (10MG/ML) 2ML VL IV SCH (10:00)
[2021-10-28] MEDS: POTASSIUM CHL 20MEQ/50ML 50 ML IV SCH ×2 (10:00→12:00)
[2021-10-28] MEDS: hydrOXYchloroQUINE SULFATE 200 MG TAB PO SCH (10:00)
[2021-10-28] MEDS ORDERED: MAGNESIUM SULFATE 1GM/100ML 100 ML IV ONE (10:00)
[2021-10-28] MEDS: CHOLECALCIFEROL (VITD3) 2,000 UNIT CAP/TAB PO SCH (10:00)
[2021-10-28] MEDS ORDERED: CALCIUM CHL 100MG/ML 1,000 MG in D5W 5% 100 ML IV ONE (10:00)
[2021-10-28] MEDS: SODIUM CHLOR 0.9% PF (SALINE LOCK) 10ML VIAL/SYR IV SCH ×2 (10:00→22:30)
[2021-10-28] MEDS ORDERED: ENOXAPARIN SOD 40 MG/0.4 ML SYRINGE SC ONE (10:15)
[2021-10-28] MEDS ORDERED: PANTOPRAZOLE 40 MG/10 ML VIAL INJ IV ONE (10:15)
[2021-10-28] MEDS: fentaNYL Drip 2500mCg/250mlNS 250 ML IV SCH (14:30)
[2021-10-28] MEDS: ALBUTEROL SULF 2.5 MG/0.5ML(0.5%) NEB SOLN NEB PRN (21:35)
[2021-10-29] VITALS (94 sets, daily range): BP systolic 86–187; BP diastolic 43–101
[2021-10-29] MEDS: ACCU-CHEK COMFORT CURVE STRIP VI SCH ×4 (00:11→18:00)
[2021-10-29] MEDS: fentaNYL Drip 2500mCg/250mlNS 250 ML IV SCH ×2 (00:12→17:22)
[2021-10-29 04:44] LABS: Hematocrit 26.8 % (36.0-46.0); Mean Corpuscular Hemoglobin 32.6 pg (28.0-32.0); Mean Corpuscular Hgb Conc. 33.6 g/dL (32.0-36.0); Mean Corpuscular Volume 96.8 fL (80.0-100.0); Red Blood Cells 2.77 10^6/uL (4.0-5.20); Red Cell Distribution Width 16.8 % (11.8-14.3); White Blood Cell 7.6 10^3/uL (4.4-10.8)
[2021-10-29 04:50] LABS: Basophils % (manual) 0 (0.0-2.0); Blast Cells 0; Eosinophils % (manual) 0 (0-7); Promyelocytes % 0; Reactive Lymphocytes 0
[2021-10-29 05:01] LABS: Albumin 1.2 g/dL (3.4-5.0); Anion Gap 7 (5-15); Calcium 7.4 mg/dL (8.5-10.1); Carbon Dioxide 33 mmol/L (21-32); Chloride 101 mmol/L (98-107); Glucose 111 mg/dL (74-106); Magnesium 1.8 mg/dL (1.6-2.6); Sodium 141 mmol/L (136-145)
[2021-10-29 05:07] LABS: Alanine Aminotransferase 14 U/L (13-56); Alkaline Phosphatase 116 U/L (45-117); Aspartate Aminotransferase 21 U/L (15-37); Bilirubin, Total 0.4 mg/dL (0.2-1.0); Blood Urea Nitrogen 5 mg/dL (7-18); Phosphorus 2.4 mg/dL (2.5-4.90); Total Protein 3.6 g/dL (6.4-8.2)
[2021-10-29 05:13] LABS: Band Neutrophils % (manual) 20; Lymphocytes % (manual) 12 (10.0-50.0); Metamyelocytes % 3; Monocytes % (manual) 6 (0-12); Myelocytes % 1
[2021-10-29 05:25] LABS: BUN/Creatinine Ratio 33.3; GFR African American 628 mL/min; GFR Non-African American 519 mL/min
[2021-10-29] MEDS: InsuLIN REG 1unit/0.01ml Soln (100units/ml) SC SCH ×4 (06:00→18:00)
[2021-10-29] MEDS: METOCLOPRAMIDE HCL 5MG/ml INJ 2ml VIAL IV SCH ×3 (06:02→22:08)
[2021-10-29] MEDS: VORICONAZOLE INJ 300 MG in D5W 5% 250 ML IV SCH ×2 (06:02→20:17)
[2021-10-29] MEDS: LEVOTHYROXINE SODIUM 100 MCG TAB PO SCH (06:03)
[2021-10-29] MEDS: MIDAZOLAM DRIP 50 mg/50mL 50 ML IV SCH ×2 (09:24→17:23)
[2021-10-29] MEDS: levoFLOXacin 500MG 100 ML IV SCH (10:04)
[2021-10-29] MEDS: ENOXAPARIN SOD 40 MG/0.4 ML SYRINGE SC SCH (10:05)
[2021-10-29] MEDS: POTASSIUM EFFERVESENT TAB 25 MEQ GT SCH (10:05)
[2021-10-29] MEDS: FAMOTIDINE (10MG/ML) 2ML VL IV SCH (10:05)
[2021-10-29] MEDS: PANTOPRAZOLE 40 MG/10 ML VIAL INJ IV SCH (10:05)
[2021-10-29] MEDS: SODIUM CHLOR 0.9% PF (SALINE LOCK) 10ML VIAL/SYR IV SCH ×2 (10:06→22:08)
[2021-10-29] MEDS: CHOLECALCIFEROL (VITD3) 2,000 UNIT CAP/TAB PO SCH (10:07)
[2021-10-29] MEDS: hydrOXYchloroQUINE SULFATE 200 MG TAB PO SCH (10:07)
[2021-10-29] MEDS: FUROSEMIDE 20 MG/2 ML VIAL IV SCH (10:08)
[2021-10-29] MEDS: NOREPINEPHRINE 8 MG/250ML KIT 250 ML IV SCH (11:48)
[2021-10-29] MEDS ORDERED: POTASSIUM EFFERVESENT TAB 25 MEQ PO ONE (12:15)
[2021-10-29] MEDS ORDERED: POTASSIUM PHOSPHATE 26.4 MEQ in SODIUM CHL 0.9% 100 ML IV ONE (12:15)
[2021-10-29] MEDS: PROPOFOL 100 ML IV SCH ×2 (14:25→18:30)
[2021-10-29] MEDS: MAGNESIUM SULFATE 1GM/100ML 100 ML IV SCH ×2 (14:47→17:24)
[2021-10-29] MEDS: BUDESONIDE (INHALATION) 0.5 MG/2 ML NEB NEB SCH (22:49)
[2021-10-29] MEDS: ALBUTEROL SULF 2.5 MG/0.5ML(0.5%) NEB SOLN NEB PRN (22:49)
[2021-10-30] VITALS (86 sets, daily range): BP systolic 89–128; BP diastolic 40–107
[2021-10-30] MEDS: ACCU-CHEK COMFORT CURVE STRIP VI SCH ×5 (01:58→23:28)
[2021-10-30 04:59] LABS: Hematocrit 30.1 % (36.0-46.0); Hemoglobin 10.1 g/dL (12.2-16.2); Mean Corpuscular Hemoglobin 32.1 pg (28.0-32.0); Mean Corpuscular Hgb Conc. 33.6 g/dL (32.0-36.0); Mean Corpuscular Volume 95.6 fL (80.0-100.0); Red Blood Cells 3.15 10^6/uL (4.0-5.20); Red Cell Distribution Width 17.3 % (11.8-14.3); White Blood Cell 9.7 10^3/uL (4.4-10.8)
[2021-10-30 05:23] LABS: Basophils % (manual) 0 (0.0-2.0); Blast Cells 0; Promyelocytes % 0; Reactive Lymphocytes 0
[2021-10-30 05:33] LABS: Albumin 1.3 g/dL (3.4-5.0); BUN/Creatinine Ratio 31.3; Calcium 7.9 mg/dL (8.5-10.1); Magnesium 2.7 mg/dL (1.6-2.6)
[2021-10-30 05:47] LABS: Bilirubin, Total 0.6 mg/dL (0.2-1.0); Total Protein 4.3 g/dL (6.4-8.2)
[2021-10-30] MEDS: InsuLIN REG 1unit/0.01ml Soln (100units/ml) SC SCH ×5 (06:00→23:28)
[2021-10-30] MEDS: METOCLOPRAMIDE HCL 5MG/ml INJ 2ml VIAL IV SCH ×3 (06:00→22:00)
[2021-10-30] MEDS: VORICONAZOLE INJ 300 MG in D5W 5% 250 ML IV SCH ×2 (06:24→18:23)
[2021-10-30] MEDS: LEVOTHYROXINE SODIUM 100 MCG TAB PO SCH (06:25)
[2021-10-30 06:51] LABS: Band Neutrophils % (manual) 19; Eosinophils % (manual) 3 (0-7); Lymphocytes % (manual) 8 (10.0-50.0); Metamyelocytes % 2; Monocytes % (manual) 7 (0-12); Myelocytes % 1
[2021-10-30] MEDS: PROPOFOL 100 ML IV SCH ×2 (07:34→14:34)
[2021-10-30] MEDS: FAMOTIDINE (10MG/ML) 2ML VL IV SCH (09:20)
[2021-10-30] MEDS: FUROSEMIDE 20 MG/2 ML VIAL IV SCH (09:21)
[2021-10-30] MEDS: levoFLOXacin 500MG 100 ML IV SCH (09:21)
[2021-10-30] MEDS: POTASSIUM EFFERVESENT TAB 25 MEQ GT SCH (09:21)
[2021-10-30] MEDS: CHOLECALCIFEROL (VITD3) 2,000 UNIT CAP/TAB PO SCH (09:22)
[2021-10-30] MEDS: SODIUM CHLOR 0.9% PF (SALINE LOCK) 10ML VIAL/SYR IV SCH ×2 (09:23→22:00)
[2021-10-30] MEDS: PANTOPRAZOLE 40 MG/10 ML VIAL INJ IV SCH (09:23)
[2021-10-30] MEDS: ENOXAPARIN SOD 40 MG/0.4 ML SYRINGE SC SCH (09:24)
[2021-10-30] MEDS: hydrOXYchloroQUINE SULFATE 200 MG TAB PO SCH (11:28)
[2021-10-30] MEDS: fentaNYL Drip 2500mCg/250mlNS 250 ML IV SCH (11:30)
[2021-10-30] MEDS: MIDAZOLAM DRIP 50 mg/50mL 50 ML IV SCH (13:01)
[2021-10-30] MEDS: NOREPINEPHRINE 8 MG/250ML KIT 250 ML IV SCH (15:37)
[2021-10-30] MEDS: ALBUTEROL SULF 2.5 MG/0.5ML(0.5%) NEB SOLN NEB PRN (21:21)
[2021-10-30] MEDS: BUDESONIDE (INHALATION) 0.5 MG/2 ML NEB NEB SCH (21:21)
[2021-10-31] VITALS (77 sets, daily range): BP systolic 91–121; BP diastolic 35–64
[2021-10-31] MEDS: InsuLIN REG 1unit/0.01ml Soln (100units/ml) SC SCH ×3 (06:00→18:00)
[2021-10-31] MEDS: METOCLOPRAMIDE HCL 5MG/ml INJ 2ml VIAL IV SCH ×3 (06:00→22:00)
[2021-10-31] MEDS: ACCU-CHEK COMFORT CURVE STRIP VI SCH ×3 (06:00→18:00)
[2021-10-31] MEDS: VORICONAZOLE INJ 300 MG in D5W 5% 250 ML IV SCH ×2 (06:00→18:00)
[2021-10-31] MEDS: LEVOTHYROXINE SODIUM 100 MCG TAB PO SCH (07:00)
[2021-10-31] MEDS: FAMOTIDINE (10MG/ML) 2ML VL IV SCH (10:00)
[2021-10-31] MEDS: CHOLECALCIFEROL (VITD3) 2,000 UNIT CAP/TAB PO SCH (10:00)
[2021-10-31] MEDS: hydrOXYchloroQUINE SULFATE 200 MG TAB PO SCH (10:00)
[2021-10-31] MEDS: FUROSEMIDE 20 MG/2 ML VIAL IV SCH (10:00)
[2021-10-31] MEDS: POTASSIUM EFFERVESENT TAB 25 MEQ GT SCH (10:00)
[2021-10-31] MEDS: ENOXAPARIN SOD 40 MG/0.4 ML SYRINGE SC SCH (10:00)
[2021-10-31] MEDS: SODIUM CHLOR 0.9% PF (SALINE LOCK) 10ML VIAL/SYR IV SCH ×2 (10:00→22:00)
[2021-10-31] MEDS: levoFLOXacin 500MG 100 ML IV SCH (10:00)
[2021-10-31] MEDS: PANTOPRAZOLE 40 MG/10 ML VIAL INJ IV SCH (10:00)
[2021-10-31] MEDS: fentaNYL Drip 2500mCg/250mlNS 250 ML IV SCH (14:30)
[2021-10-31] MEDS: PROPOFOL 100 ML IV SCH (16:41)
[2021-10-31] MEDS: NOREPINEPHRINE 8 MG/250ML KIT 250 ML IV SCH (16:41)
[2021-10-31] MEDS: MIDAZOLAM DRIP 50 mg/50mL 50 ML IV SCH (16:42)
[2021-10-31] MEDS: ALBUTEROL SULF 2.5 MG/0.5ML(0.5%) NEB SOLN NEB PRN (19:35)
[2021-10-31] MEDS: BUDESONIDE (INHALATION) 0.5 MG/2 ML NEB NEB SCH (19:35)
[2021-11-01] VITALS (93 sets, daily range): BP systolic 86–155; BP diastolic 34–90
[2021-11-01] MEDS: METOCLOPRAMIDE HCL 5MG/ml INJ 2ml VIAL IV SCH ×3 (05:51→22:49)
[2021-11-01] MEDS: VORICONAZOLE INJ 300 MG in D5W 5% 250 ML IV SCH ×2 (05:51→18:42)
[2021-11-01] MEDS: ACCU-CHEK COMFORT CURVE STRIP VI SCH ×4 (05:57→17:47)
[2021-11-01] MEDS: InsuLIN REG 1unit/0.01ml Soln (100units/ml) SC SCH ×4 (06:00→17:47)
[2021-11-01] MEDS: BUDESONIDE (INHALATION) 0.5 MG/2 ML NEB NEB SCH ×2 (06:15→22:06)
[2021-11-01] MEDS: LEVOTHYROXINE SODIUM 100 MCG TAB PO SCH (07:02)
[2021-11-01 09:11] LABS: Potassium 4.1 mmol/L (3.5-5.1)
[2021-11-01] MEDS: levoFLOXacin 500MG 100 ML IV SCH (09:15)
[2021-11-01 09:21] LABS: Albumin 1.2 g/dL (3.4-5.0); BUN/Creatinine Ratio 37.5; Bilirubin, Total 0.4 mg/dL (0.2-1.0); Calcium 8.1 mg/dL (8.5-10.1)
[2021-11-01] MEDS: CHOLECALCIFEROL (VITD3) 2,000 UNIT CAP/TAB PO SCH (09:45)
[2021-11-01] MEDS: PANTOPRAZOLE 40 MG/10 ML VIAL INJ IV SCH (09:45)
[2021-11-01] MEDS: SODIUM CHLOR 0.9% PF (SALINE LOCK) 10ML VIAL/SYR IV SCH ×2 (09:45→22:00)
[2021-11-01] MEDS: ENOXAPARIN SOD 40 MG/0.4 ML SYRINGE SC SCH (09:45)
[2021-11-01] MEDS: hydrOXYchloroQUINE SULFATE 200 MG TAB PO SCH (09:45)
[2021-11-01] MEDS: FUROSEMIDE 20 MG/2 ML VIAL IV SCH (09:45)
[2021-11-01] MEDS: FAMOTIDINE (10MG/ML) 2ML VL IV SCH (09:45)
[2021-11-01] MEDS: POTASSIUM EFFERVESENT TAB 25 MEQ GT SCH (10:30)
[2021-11-01] MEDS: fentaNYL Drip 2500mCg/250mlNS 250 ML IV SCH ×2 (13:34→18:45)
[2021-11-01] MEDS: ALBUTEROL SULF 2.5 MG/0.5ML(0.5%) NEB SOLN NEB PRN ×2 (14:00→22:06)
[2021-11-01] MEDS: NOREPINEPHRINE 8 MG/250ML KIT 250 ML IV SCH (15:33)
[2021-11-01] MEDS: PROPOFOL 100 ML IV SCH (15:33)
[2021-11-01] MEDS: MIDAZOLAM DRIP 50 mg/50mL 50 ML IV SCH (15:34)
[2021-11-02] VITALS (73 sets, daily range): BP systolic 88–161; BP diastolic 34–100
[2021-11-02] MEDS: InsuLIN REG 1unit/0.01ml Soln (100units/ml) SC SCH ×4 (01:00→18:00)
[2021-11-02] MEDS: ACCU-CHEK COMFORT CURVE STRIP VI SCH ×4 (01:00→18:05)
[2021-11-02] MEDS: METOCLOPRAMIDE HCL 5MG/ml INJ 2ml VIAL IV SCH ×3 (06:00→22:00)
[2021-11-02] MEDS: VORICONAZOLE INJ 300 MG in D5W 5% 250 ML IV SCH ×2 (06:00→18:05)
[2021-11-02] MEDS: LEVOTHYROXINE SODIUM 100 MCG TAB PO SCH (06:47)
[2021-11-02 09:06] LABS: Red Cell Distribution Width 17.8 % (11.8-14.3)
[2021-11-02 09:09] LABS: Hematocrit 26.5 % (36.0-46.0); Hemoglobin 9.1 g/dL (12.2-16.2); Mean Corpuscular Hemoglobin 33.7 pg (28.0-32.0); Mean Corpuscular Hgb Conc. 34.5 g/dL (32.0-36.0); Mean Corpuscular Volume 97.7 fL (80.0-100.0); Red Blood Cells 2.71 10^6/uL (4.0-5.20); White Blood Cell 9.5 10^3/uL (4.4-10.8)
[2021-11-02 09:18] LABS: Basophils % (manual) 0 (0.0-2.0); Blast Cells 0; Metamyelocytes % 0; Myelocytes % 0; Promyelocytes % 0; Reactive Lymphocytes 0
[2021-11-02 09:30] LABS: Chloride 96 mmol/L (98-107); Potassium 3.5 mmol/L (3.5-5.1); Sodium 138 mmol/L (136-145)
[2021-11-02] MEDS: hydrOXYchloroQUINE SULFATE 200 MG TAB PO SCH (09:30)
[2021-11-02] MEDS: PANTOPRAZOLE 40 MG/10 ML VIAL INJ IV SCH (09:30)
[2021-11-02] MEDS: ENOXAPARIN SOD 40 MG/0.4 ML SYRINGE SC SCH (09:30)
[2021-11-02] MEDS: levoFLOXacin 500MG 100 ML IV SCH (09:30)
[2021-11-02] MEDS: FUROSEMIDE 20 MG/2 ML VIAL IV SCH (09:30)
[2021-11-02] MEDS: SODIUM CHLOR 0.9% PF (SALINE LOCK) 10ML VIAL/SYR IV SCH ×2 (09:30→22:00)
[2021-11-02] MEDS: CHOLECALCIFEROL (VITD3) 2,000 UNIT CAP/TAB PO SCH (09:30)
[2021-11-02] MEDS: FAMOTIDINE (10MG/ML) 2ML VL IV SCH (09:30)
[2021-11-02 09:46] LABS: Alkaline Phosphatase 142 U/L (45-117); Anion Gap 4 (5-15); Aspartate Aminotransferase 27 U/L (15-37); Bilirubin, Total 0.6 mg/dL (0.2-1.0); Blood Urea Nitrogen 7 mg/dL (7-18); Calcium 6.8 mg/dL (8.5-10.1); Carbon Dioxide 38 mmol/L (21-32); Glucose 204 mg/dL (74-106); Total Protein 3.7 g/dL (6.4-8.2)
[2021-11-02] MEDS: ALBUTEROL SULF 2.5 MG/0.5ML(0.5%) NEB SOLN NEB PRN ×2 (09:48→22:33)
[2021-11-02] MEDS: BUDESONIDE (INHALATION) 0.5 MG/2 ML NEB NEB SCH ×2 (09:49→22:33)
[2021-11-02 09:51] LABS: Alanine Aminotransferase 15 U/L (13-56)
[2021-11-02] MEDS: POTASSIUM EFFERVESENT TAB 25 MEQ GT SCH (10:30)
[2021-11-02 10:38] LABS: BUN/Creatinine Ratio 46.7; GFR African American 628 mL/min; GFR Non-African American 519 mL/min
[2021-11-02 12:55] LABS: Band Neutrophils % (manual) 19; Eosinophils % (manual) 3 (0-7); Lymphocytes % (manual) 11 (10.0-50.0); Monocytes % (manual) 5 (0-12)
[2021-11-02] MEDS: MIDAZOLAM DRIP 50 mg/50mL 50 ML IV SCH (14:00)
[2021-11-02] MEDS: NOREPINEPHRINE 8 MG/250ML KIT 250 ML IV SCH (14:00)
[2021-11-02] MEDS: PROPOFOL 100 ML IV SCH (14:00)
[2021-11-03] VITALS (43 sets, daily range): BP systolic 83–154; BP diastolic 38–59
[2021-11-03] MEDS: METOCLOPRAMIDE HCL 5MG/ml INJ 2ml VIAL IV SCH (06:00)
[2021-11-03] MEDS: VORICONAZOLE INJ 300 MG in D5W 5% 250 ML IV SCH (06:00)
[2021-11-03] MEDS: ACCU-CHEK COMFORT CURVE STRIP VI SCH ×2 (06:00)
[2021-11-03] MEDS: InsuLIN REG 1unit/0.01ml Soln (100units/ml) SC SCH ×2 (06:00)
[2021-11-03] MEDS: BUDESONIDE (INHALATION) 0.5 MG/2 ML NEB NEB SCH (06:20)
[2021-11-03] MEDS: ALBUTEROL SULF 2.5 MG/0.5ML(0.5%) NEB SOLN NEB PRN (06:20)
[2021-11-03] MEDS: LEVOTHYROXINE SODIUM 100 MCG TAB PO SCH (07:28)
[2021-11-03] MEDS: FUROSEMIDE 20 MG/2 ML VIAL IV SCH (09:30)
[2021-11-03] MEDS: levoFLOXacin 500MG 100 ML IV SCH (09:30)
[2021-11-03] MEDS: CHOLECALCIFEROL (VITD3) 2,000 UNIT CAP/TAB PO SCH (09:30)
[2021-11-03] MEDS: hydrOXYchloroQUINE SULFATE 200 MG TAB PO SCH (09:30)
[2021-11-03] MEDS: FAMOTIDINE (10MG/ML) 2ML VL IV SCH (09:30)
[2021-11-03] MEDS: ENOXAPARIN SOD 40 MG/0.4 ML SYRINGE SC SCH (09:30)
[2021-11-03] MEDS: PANTOPRAZOLE 40 MG/10 ML VIAL INJ IV SCH (09:30)
[2021-11-03] MEDS: SODIUM CHLOR 0.9% PF (SALINE LOCK) 10ML VIAL/SYR IV SCH (09:30)
[2021-11-03 10:53] LABS: Basophils # (auto) 0 10 ^3/uL (0-0.2); Basophils % (auto) 0.4 % (0.0-2.0); Eosinophils # (auto) 0.1 10 ^3/uL (0-0.8); Eosinophils % (auto) 1.1 % (0.0-7.0); Hematocrit 26.7 % (36.0-46.0); Hemoglobin 9.1 g/dL (12.2-16.2); Lymphocytes # (auto) 0.8 10 ^3/uL (0.4-5.4); Lymphocytes % (auto) 7.3 % (10.0-50.0); Mean Corpuscular Hemoglobin 33.3 pg (28.0-32.0); Mean Corpuscular Hgb Conc. 34.2 g/dL (32.0-36.0); Mean Corpuscular Volume 97.3 fL (80.0-100.0); Monocytes # (auto) 0.9 10 ^3/uL (0-1.3); Monocytes % (auto) 9.1 % (0.0-12.0); Neutrophils # (auto) 8.4 10 ^3/uL (1.6-8.6); Neutrophils % (auto) 82.1 % (37.0-80.0); Nucleated Red Blood Cells % 0.9 %; Red Blood Cells 2.74 10^6/uL (4.0-5.20); Red Cell Distribution Width 17.6 % (11.8-14.3); White Blood Cell 10.3 10^3/uL (4.4-10.8)
[2021-11-03 11:01] LABS: Anion Gap 1 (5-15); BUN/Creatinine Ratio 46.7; Blood Urea Nitrogen 7 mg/dL (7-18); Carbon Dioxide 38 mmol/L (21-32); Chloride 96 mmol/L (98-107); GFR African American 628 mL/min; GFR Non-African American 519 mL/min; Glucose 166 mg/dL (74-106); Potassium 3.4 mmol/L (3.5-5.1); Sodium 135 mmol/L (136-145)
[2021-11-03] MEDS ORDERED: MORPHINE SULFATE INJECTION 2 MG/ML SYRG IV PRN (11:45)
[2021-11-03] MEDS ORDERED: LORazepam 2MG/ML-1ML VIAL IV PRN (11:45)
== END 2021-11-03 17:32 | DRG 870 ==
LOC: EDBD 19:59 → ER 20:01 → TELE 23:25 → TELE-EAST 09-08 02:00 → TELE-E-ADS 09-16 21:26 → ICU WEST 09-20 16:45
PROVIDERS: ADMIT Nurse Practitioner; ATTEND Internal Medicine
PROC: XW033E5 Introduction of Remdesivir Anti-infective into Peripheral Vein, Percutaneous Approach, New Technology Group 5 (ICD-10-PCS; principal; 2021-09-09)
PROC: 5A0935A Assistance with Respiratory Ventilation, Less than 24 Consecutive Hours, High Flow/Velocity Cannula (ICD-10-PCS; 2021-09-17)
PROC: 5A1955Z Respiratory Ventilation, Greater than 96 Consecutive Hours (ICD-10-PCS; 2021-09-20)
PROC: 0BH17EZ Insertion of Endotracheal Airway into Trachea, Via Natural or Artificial Opening (ICD-10-PCS; 2021-09-20)
PROC: 02H633Z Insertion of Infusion Device into Right Atrium, Percutaneous Approach (ICD-10-PCS; 2021-09-20)
PROC: 02H633Z Insertion of Infusion Device into Right Atrium, Percutaneous Approach (ICD-10-PCS; 2021-09-29)
DX: A41.89 Other specified sepsis (principal); U07.1 COVID-19; J96.01 Acute respiratory failure with hypoxia; J12.82 Pneumonia due to coronavirus disease 2019; N17.0 Acute kidney failure with tubular necrosis; R65.21 Severe sepsis with septic shock; J16.8 Pneumonia due to other specified infectious organisms; N39.0 Urinary tract infection, site not specified; Z68.41 Body mass index [BMI] 40.0-44.9, adult; E66.2 Morbid (severe) obesity with alveolar hypoventilation; D89.839 Cytokine release syndrome, grade unspecified; E03.9 Hypothyroidism, unspecified; E87.5 Hyperkalemia; R73.9 Hyperglycemia, unspecified; E78.5 Hyperlipidemia, unspecified; E87.6 Hypokalemia; Z51.5 Encounter for palliative care; I10 Essential (primary) hypertension; F32.9 Major depressive disorder, single episode, unspecified; D69.6 Thrombocytopenia, unspecified; Z66 Do not resuscitate; Y93.89 Activity, other specified; M19.90 Unspecified osteoarthritis, unspecified site; Y92.238 Other place in hospital as the place of occurrence of the external cause; E83.51 Hypocalcemia; S43.004A Unspecified dislocation of right shoulder joint, initial encounter; X58.XXXA Exposure to other specified factors, initial encounter; Y99.8 Other external cause status; Z88.0 Allergy status to penicillin; Z88.2 Allergy status to sulfonamides; Z23 Encounter for immunization
CPT/HCPCS: 31500; 36415; 36569; 36600; 71045; 71275; 73030; 80048; 80053; 81001; 82040; 82306; 82728; 82805; 82962; 83036; 83605; 83735; 83880; 84100; 84443; 84478; 84484; 85007; 85025; 85027; 85379; 85610; 85730; 86141; 87040; 87045; 87070; 87081; 87086; 87088; 87186; 87205; 87426; 87427; 87493; 93005; 93306; 93970; 94002; 94003; 94640; 96374; C9113; G0378; J0330; J0696; J1100; J1815; J1956; J2185; J2248; J2250; J2405; J2704; J3465; J3490; J7060; J7131; P9047